=== PATIENT | female | born 1930 | race Caucasian/White ===

== ENCOUNTER 2019-08-22 14:26 | Inpatient (IN) | payer MEDICARE, OTHER ==
[2019-08-22] VITALS (10 sets, daily range): BP systolic 103–172; BP diastolic 51–96
[~2019-08-22] VITALS: Ht 154.9 cm; Wt 79.6 kg
--- NOTE | 2019-08-22 15:02 | ED Cardiac General ---
History of Present Illness General Chief Complaint: Cardiac/General Problems Stated Complaint: SOB Source: patient, family History of Present Illness Date Seen by Provider: Aug 22, 2019 Time Seen by Provider: 14:58 Initial Comments Patient complains of shortness of breath and discomfort in her chest since 7:00 this morning she is worse lying supine she is short of breath with exertion which is nonproductive cough and intermittent dull discomfort in the chest felt specific able to describe it there is no radiation no diaphoresis no nausea no vomiting denies past history of coronary disease Timing/Duration: 1 day Severity: moderate Location: other Activities at Onset: none, rest Prior CP/Workup: no prior chest pain, no prior cardiac workup Associated Systoms: Cough, Shortness of Air Allergies and Home Medications Allergies Coded Allergies: No Known Drug Allergies (Unverified , 08/22/19) Patient Home Medication List Home Medication List Reviewed: Yes Review of Systems Review of Systems Constitutional: no symptoms reported EENTM: No Symptoms Reported Respiratory: See HPI Cardiovascular: See HPI Gastrointestinal: See HPI Genitourinary: No Symptoms Reported Musculoskeletal: no symptoms reported Skin: no symptoms reported Psychiatric/Neurological: No Symptoms Reported Physical Exam Vital Signs Vital Signs - First Documented 08/22/19 14:40 Temp 37.1 Pulse 40 Resp 14 B/P (MAP) 131/86 (101) Pulse Ox 95 O2 Delivery Room Air Capillary Refill : Height, Weight, BMI Height: '" Weight: lbs. oz. kg; BMI Method: General Appearance: No Apparent Distress, WD/WN HEENT: PERRL/EOMI, Normal ENT Inspection Neck: Full Range of Motion, Normal Inspection, Non Tender Respiratory: Chest Non Tender, Crackles, Decreased Breath Sounds, Rales Cardiovascular: Regular Rate, Rhythm, Normal Peripheral Pulses, Bradycardia Gastrointestinal: Normal Bowel Sounds, No Organomegaly, No Pulsatile Mass, Non Tender Extremity: Normal Capillary Refill, Normal Inspection, Non Tender, No Pedal Edema Neurologic/Psychiatric: Alert, Oriented x3 Skin: Normal Color, Warm/Dry Progress/Results/Core Measures Results/Orders Lab Results Laboratory Tests Test 08/22/19 14:50 Range/Units White Blood Count 15.0 H 4.3-11.0 10^3/uL Red Blood Count 4.96 4.35-5.85 10^6/uL Hemoglobin 15.0 11.5-16.0 G/DL Hematocrit 45 35-52 % Mean Corpuscular Volume 90 80-99 FL Mean Corpuscular Hemoglobin 30 25-34 PG Mean Corpuscular Hemoglobin Concent 34 32-36 G/DL Red Cell Distribution Width 14.9 H 10.0-14.5 % Platelet Count 290 130-400 10^3/uL Mean Platelet Volume 11.0 H 7.4-10.4 FL Neutrophils (%) (Auto) 76 H 42-75 % Lymphocytes (%) (Auto) 15 12-44 % Monocytes (%) (Auto) 9 0-12 % Eosinophils (%) (Auto) 0 0-10 % Basophils (%) (Auto) 0 0-10 % Neutrophils # (Auto) 11.4 H 1.8-7.8 X 10^3 Lymphocytes # (Auto) 2.3 1.0-4.0 X 10^3 Monocytes # (Auto) 1.3 H 0.0-1.0 X 10^3 Eosinophils # (Auto) 0.0 0.0-0.3 10^3/uL Basophils # (Auto) 0.0 0.0-0.1 10^3/uL Neutrophils % (Manual) 76 % Lymphocytes % (Manual) 15 % Monocytes % (Manual) 7 % Eosinophils % (Manual) 1 % Basophils % (Manual) 0 % Band Neutrophils 1 % Sodium Level 136 135-145 MMOL/L Potassium Level 3.8 3.6-5.0 MMOL/L Chloride Level 100 98-107 MMOL/L Carbon Dioxide Level 18 L 21-32 MMOL/L Anion Gap 18 H 5-14 MMOL/L Blood Urea Nitrogen 17 7-18 MG/DL Creatinine 1.22 0.60-1.30 MG/DL Estimat Glomerular Filtration Rate 42 BUN/Creatinine Ratio 14 Glucose Level 155 H 70-105 MG/DL Calcium Level 9.4 8.5-10.1 MG/DL Corrected Calcium 9.5 8.5-10.1 MG/DL Magnesium Level 1.6 1.6-2.4 MG/DL Total Bilirubin 0.9 0.1-1.0 MG/DL Aspartate Amino Transf (AST/SGOT) 89 H 5-34 U/L Alanine Aminotransferase (ALT/SGPT) 21 0-55 U/L Alkaline Phosphatase 104 40-136 U/L Troponin I 8.72 *H <0.30 NG/ML Pro-B-Type Natriuretic Peptide 7906.0 H <75.0 PG/ML Total Protein 7.0 6.4-8.2 GM/DL Albumin 3.9 3.2-4.5 GM/DL My Orders Orders - KADEEM STRATTON DO Cbc And Manual Diff (08/22/19 14:55) Comprehensive Metabolic Panel (08/22/19 14:55) Probnp Fs (08/22/19 14:55) Troponin I Fs (08/22/19 14:55) Chest 1 View Ap/Pa Only (08/22/19 14:55) Magnesium (08/22/19 14:55) Ua Culture If Indicated (08/22/19 14:55) Ed Iv/Invasive Line Start (08/22/19 14:55) Enoxaparin Injection (Lovenox Injection) (08/22/19 16:00) Myoglobin Serum (08/22/19 16:00) Aspirin Chewable Tablet (Baby Aspirin Ch (08/22/19 16:15) Vital Signs/I&O 08/22/19 14:40 Temp 37.1 Pulse 40 Resp 14 B/P (MAP) 131/86 (101) Pulse Ox 95 O2 Delivery Room Air Progress Progress Note : Progress Note Patient presents with orthopnea shortness of breath and mild discomfort in her chest differentials [place] includes ACS congestive heart failure symptomatic bradycardia The patient has evidence of hyperlipidemia. In addition to familial causes, secondary causes such as diabetes mellitus, medications, hypothyroidism, renal failure, nephrotic syndrome, alcohol usage, and other endocrine disorders were considered. The patient will be maintained with dietary modification laboratory screening chest x-ray given her heart rates in the 30s with new onset atrial fib most likely she'll need to be evaluated for pacemaker placement be transferred to Hospital cardiology availability. As was discussed with the patient and family at the beginning I agreed David B the hospital shortness In order to reduce cardiovascular risk. The risks and benefits of medical therapy have been explained to the patient. Initial ECG Impression Date: Aug 22, 2019 Initial ECG Impression Time: 15:03 Initial ECG Rate: 40 Initial ECG Rhythm: A Fib/Flutter Initial ECG Intervals: QRS (120) Initial ECG Impression: Atrial Fibrillation Departure Impression Primary Impression: Bradycardia Additional Impressions: Atrial fibrillation NSTEMI (non-ST elevated myocardial infarction) CHF (congestive heart failure) Disposition: [facility]-TRM HOSP Condition: Improved Transfer Transfer Reason: Exceeds level of care Time Spoke to Accepting Phy: 16:09 Transfer Progress Notes Patient elevated troponin and elevated BNP chest x-ray and physical exam consistent with CHF EKG showed atrial fibrillation with bradycardia in the 30s blood pressure was hemodynamically stable. Discussion with the family requests to be transferred to [place] a spoke to Dr. LUX who agreed patient should have aspirin Lovenox and he would see he recommended hospitalist admission and discussed the case with Dr. Lockwood, who agreed to accept the patient. We discussed the merits of air versus ground as the patient is hemodynamically stable no ongoing chest pain and only abnormal vital signs for bradycardia will hold out for ground transfer Dr. Segundo had requested a myoglobin be sent as well to assist him in determining the age of this IL. Departure-Patient Inst. Referrals: TIA WILSON MD (PCP/Family) Primary Care Physician KADEEM STRATTON DO Aug 22, 2019 15:02
[2019-08-22 15:11] LABS: HEMATOCRIT 45 % (35-52); MEAN CORPUSCULAR HEMOGLOBIN 30 PG (25-34); MEAN CORPUSCULAR HGB CONC 34 G/DL (32-36); MEAN CORPUSCULAR VOLUME 90 FL (80-99)
[2019-08-22 15:12] LABS: LYMPHOCYTES % (AUTO) 15 % (12-44); NEUTROPHILS % (AUTO) 76 % (42-75); PLATELET COUNT 290 10^3/uL (130-400); RED CELL DISTRIBUTION WIDTH 14.9 % (10.0-14.5)
[2019-08-22 15:14] LABS: BASOPHILS % (AUTO) 0 % (0-10); EOSINOPHILS % (AUTO) 0 % (0-10); MONOCYTES % (AUTO) 9 % (0-12)
[2019-08-22 15:15] LABS: LYMPHOCYTES # (AUTO) 2.3 X 10^3 (1.0-4.0); MONOCYTES # (AUTO) 1.3 X 10^3 (0.0-1.0); NEUTROPHILS # (AUTO) 11.4 X 10^3 (1.8-7.8)
--- NOTE | 2019-08-22 15:19 | Diagnostic Imaging Report ---
PROCEDURE: Chest 1 view AP/PA only. INDICATION: Shortness of air and bradycardia. COMPARISON: None available. FINDINGS: Blunting of the left lateral costophrenic angle is present. Hazy opacities in the lung bases are likely due to summation shadow in patient's breast; however, underlying ground glass pulmonary opacities could give this appearance. Potential trace left pleural effusion versus atelectasis within the costophrenic angle. No pneumothorax. IMPRESSION: Potential trace left pleural effusion versus atelectasis within the costophrenic angle. Dictated by: Dictated on workstation # [id number]
[2019-08-22 15:28] LABS: BAND NEUTROPHILS 1 %; BASOPHILS % (MANUAL) 0 %; EOSINOPHILS % (MANUAL) 1 %; LYMPHOCYTES % (MANUAL) 15 %; MONOCYTES % (MANUAL) 7 %; NEUTROPHILS % (MANUAL) 76 %
[2019-08-22 15:34] LABS: BILIRUBIN,TOTAL 0.9 MG/DL (0.1-1.0); CALCIUM 9.4 MG/DL (8.5-10.1); CREATININE SERUM 1.22 MG/DL (0.60-1.30); MAGNESIUM 1.6 MG/DL (1.6-2.4); POTASSIUM 3.8 MMOL/L (3.6-5.0)
[2019-08-22 15:36] LABS: ALBUMIN 3.9 GM/DL (3.2-4.5)
[2019-08-22] MEDS ORDERED: ENOXAPARIN 80 MG/0.8 ML (LOVENOX) SYR SC ONE (16:00)
[2019-08-22] MEDS ORDERED: ASPIRIN 81 MG CHEW (CHILDREN'S ASA) PO ONE ×2 (16:00→16:15)
--- NOTE | 2019-08-22 16:14 | NUR ---
THIS NURSE NOTIFIED DR LUX AND DR HAQUE PT HR IS IN THE 30S SBP IS IN THE 120S. PT DOES NOT HAVE AND SYMPTOMS OF CP, NAUSEA, ARM OR JAW PAIN, OR SOA. DR HAQUE STATED TO REFER JOSE J.
--- NOTE | 2019-08-22 16:50 | NUR ---
Transcutaneous pacer pads placed on patient for appropriate plan for possible tx.
--- NOTE | 2019-08-22 18:37 | NUR ---
THIS NURSE CALLED DR LUX. THIS NURSE NOTIFIED DR LUX PT HR IS IN THE 30S AND SBP IS IN THE 120. STILL NO SYMPTOMS. DR LUX STATED HE IS ON HIS WAY TO THE HOSPITAL.
[2019-08-22] MEDS ORDERED: NS IV 1000 ML 1,000 ML ONE (19:04)
--- NOTE | 2019-08-22 19:14 | Consultation-Cardiology ---
HPI-Cardiology Cardiology Consultation Date of Consultation 08/22/19 Date of Admission Time Seen by Provider: 19:09 Indication: Bradycardia HPI 89-year-old lady with history of hypertension, has been on Norvasc as an outpatient, reporting that she has been feeling tired for few years, reported that over 2 days ago had an episode of chest tightness and shortness of breath and felt dizzy and lightheaded with nausea, resolved later that day and did not have significant symptoms other than some dyspnea on exertion yesterday. This morning she started to have more shortness of breath and fatigue and loss of energy in addition to nausea. Brought to the emergency room in [place] and noted to be bradycardic. She had elevated troponin with normal myoglobin. Denied any active chest pain. No palpitation. No syncope but reported episodes of dizziness and lightheadedness. I discussed with her the management plan, patient requested to be full code and wanted every procedure done at that point understanding that there is a higher risk of complications Home Medications & Allergies Allergies: Coded Allergies: No Known Drug Allergies (Unverified , 08/22/19) Home Medication List Reviewed: Yes THB-Ffbxfv-Jjvoov Hx Patient Social History Marital Status: Employed/Student: retired Alcohol Use: Denies Use Recreational Drug Use: No Smoking Status: Never a Smoker Recent Foreign Travel: No Recent Infectious Disease Expo: No Recent Hopitalizations: No Past Medical History Discussed below Family Medical History Family Medical Hx Noncontributory to her current condition Review of Systems-General Review of Systems Constitutional: see HPI, dizziness, malaise, weakness EENTM: see HPI Respiratory: see HPI; No cough; dyspnea on exertion; No hemoptysis, No orthopnea, No phlegm, No short of breath, No stridor, No wheezing, No other Cardiovascular: see HPI, chest pain; No edema, No Hx of Intervention, No palpitations, No syncope, No vascular heart diseas, No other Gastrointestinal: see HPI, abdominal pain, nausea Genitourinary: see HPI Musculoskeletal: no symptoms reported, see HPI Skin: no symptoms reported, see HPI Psychiatric/Neurological: No Symptoms Reported, See HPI Reviewed Test Results Reviewed Test Results Lab Laboratory Tests Test 08/22/19 14:50 Range/Units White Blood Count 15.0 H 4.3-11.0 10^3/uL Red Blood Count 4.96 4.35-5.85 10^6/uL Hemoglobin 15.0 11.5-16.0 G/DL Hematocrit 45 35-52 % Mean Corpuscular Volume 90 80-99 FL Mean Corpuscular Hemoglobin 30 25-34 PG Mean Corpuscular Hemoglobin Concent 34 32-36 G/DL Red Cell Distribution Width 14.9 H 10.0-14.5 % Platelet Count 290 130-400 10^3/uL Mean Platelet Volume 11.0 H 7.4-10.4 FL Neutrophils (%) (Auto) 76 H 42-75 % Lymphocytes (%) (Auto) 15 12-44 % Monocytes (%) (Auto) 9 0-12 % Eosinophils (%) (Auto) 0 0-10 % Basophils (%) (Auto) 0 0-10 % Neutrophils # (Auto) 11.4 H 1.8-7.8 X 10^3 Lymphocytes # (Auto) 2.3 1.0-4.0 X 10^3 Monocytes # (Auto) 1.3 H 0.0-1.0 X 10^3 Eosinophils # (Auto) 0.0 0.0-0.3 10^3/uL Basophils # (Auto) 0.0 0.0-0.1 10^3/uL Neutrophils % (Manual) 76 % Lymphocytes % (Manual) 15 % Monocytes % (Manual) 7 % Eosinophils % (Manual) 1 % Basophils % (Manual) 0 % Band Neutrophils 1 % Sodium Level 136 135-145 MMOL/L Potassium Level 3.8 3.6-5.0 MMOL/L Chloride Level 100 98-107 MMOL/L Carbon Dioxide Level 18 L 21-32 MMOL/L Anion Gap 18 H 5-14 MMOL/L Blood Urea Nitrogen 17 7-18 MG/DL Creatinine 1.22 0.60-1.30 MG/DL Estimat Glomerular Filtration Rate 42 BUN/Creatinine Ratio 14 Glucose Level 155 H 70-105 MG/DL Calcium Level 9.4 8.5-10.1 MG/DL Corrected Calcium 9.5 8.5-10.1 MG/DL Magnesium Level 1.6 1.6-2.4 MG/DL Total Bilirubin 0.9 0.1-1.0 MG/DL Aspartate Amino Transf (AST/SGOT) 89 H 5-34 U/L Alanine Aminotransferase (ALT/SGPT) 21 0-55 U/L Alkaline Phosphatase 104 40-136 U/L Myoglobin 82.4 10.0-92.0 NG/ML Troponin I 8.72 *H <0.30 NG/ML Pro-B-Type Natriuretic Peptide 7906.0 H <75.0 PG/ML Total Protein 7.0 6.4-8.2 GM/DL Albumin 3.9 3.2-4.5 GM/DL Physical Exam Physical Exam Vital Signs Vital Signs - First Documented 08/22/19 14:40 Temp 37.1 Pulse 40 Resp 14 B/P (MAP) 131/86 (101) Pulse Ox 95 O2 Delivery Room Air Capillary Refill : Less Than 3 Seconds Height, Weight, BMI Height: '" Weight: lbs. oz. kg; 31.00 BMI Method: General Appearance: No Apparent Distress, WD/WN HEENT: PERRL/EOMI, Normal ENT Inspection Neck: Full Range of Motion, Normal Inspection, Non Tender Respiratory: Chest Non Tender, Lungs Clear, Crackles, Decreased Breath Sounds, Rales Cardiovascular: No Murmur, Normal Peripheral Pulses, Bradycardia Gastrointestinal: Normal Bowel Sounds, No Organomegaly, No Pulsatile Mass, Non Tender Rectal: Deferred Extremity: Normal Capillary Refill, Normal Inspection, Non Tender, No Pedal Edema Neurologic/Psychiatric: Alert, Oriented x3 Skin: Normal Color, Warm/Dry A/P-Cardiology Admission Diagnosis Subacute myocardial infarction Coronary artery disease Sinus node dysfunction Hypertension Assessment/Plan Subacute myocardial infarction, currently not having chest pain, probably the acute injury occurred 48 hours ago, troponin is still elevated, myoglobin is back to normal. Denied any active pain at this time, having mild fatigue and shortness of breath on exertion. Sinus node dysfunction, severe bradycardia with what appeared to be escape junctional rhythm, starting IV fluid and monitoring blood pressure, may require permanent pacemaker if her heart rate did not improve in the next 24-48 hours Mild metabolic acidosis, starting IV fluid and monitoring blood pressure Mild leukocytosis, mild pleural effusion. Continue to monitor CBC History of hypertension, has been on Norvasc, hold it for now Orthostatic hypotension and dizziness probably due to bradycardia. Multiple skin lesion on the back with multiple moles Clinical Quality Measures DVT/VTE Risk/Contraindication: Risk Factor Score Per Nursin RFS Level Per Nursing on Admit: 2=Moderate KRYSTAL LUX MD Aug 22, 2019 19:14
--- NOTE | 2019-08-22 19:16 | Cardiac Procedure Note-CS/ASA ---
Pre-Procedure Note Pre-Op Procedure Note H&P Reviewed The H&P was reviewed, patient examined and no changes noted. Date H&P Reviewed: Aug 22, 2019 Time H&P Reviewed: 19:16 Conscious Sedation Pre-Proced Time 19:16 ASA Score 3 For ASA 3 and 4: Consider anesthesia and medical clearance. Also, for patients with a history of failed moderate sedation consider anesthesia. Airway Lungs Heart ASA score ASA 1: a normal healthy patient ASA 2: a patient with a mild systemic disease (mid diabetes, controlled hypertension, obesity x ASA 3: a patient with a severe systemic disease that limits activity (angina, COPD, prior Myocardial infarction) ASA 4: a patient with an incapacitating disease that is a constant threat to life (CHF, renal failure) ASA 5: a moribund patient not expected to survive 24 hrs. (ruptured aneurysm) ASA 6: a declared brain- patient whose organs are being harvested. For emergent operations, add the letter E after the classification Mallampati Classification Grade 3 Sedation Plan Analgesia, Amnesia, Plan communicated to team members, Discussed options with patient/fam, Discussed risks with patient/fam The patient is an appropriate candidate to undergo the planned procedure, sedation, and anesthesia. The patient immediately re-assessed prior to indication. KRYSTAL LUX MD Aug 22, 2019 19:16
[2019-08-22 19:26] LABS: CLARITY,URINE SL CLOUDY; COLOR,URINE AMBER; GLUCOSE, URINE (UA) NEGATIVE (NEGATIVE); KETONES,URINE TRACE (NEGATIVE); LEUKOCYTE ESTERASE ,URINE NEGATIVE (NEGATIVE); NITRITE,URINE NEGATIVE (NEGATIVE); PH,URINE 5.5 (5-9); PROTEIN,URINE 3+ (NEGATIVE)
[2019-08-22] MEDS: NS IV 1000 ML 1,000 ML IV SCH ×2 (19:30→22:14)
[2019-08-22] MEDS ORDERED: fentaNYL INJECTION 100 MCG/2 ML AMP ONE (19:42)
[2019-08-22] MEDS ORDERED: LIDOCAINE 1% INJ 20 ML 20 ML VIAL ONE ×2 (19:42→20:53)
[2019-08-22] MEDS ORDERED: MIDAZOLAM 5 MG/5 ML (VERSED) VIAL ONE (19:42)
[2019-08-22] MEDS ORDERED: HEParin (CATH LAB) 2,000 ML IV ONE (19:42)
[2019-08-22 19:56] LABS: BACTERIA,URINE LARGE /HPF
[2019-08-22 19:56] LABS: INR 1.2 (0.8-1.4); PROTHROMBIN TIME PATIENT 15.5 SEC (12.2-14.7)
[2019-08-22 19:57] LABS: HYALINE CASTS, URINE >50 /LPF; SQUAMOUS EPITHELIAL CELL,UR RARE /HPF
[2019-08-22] MEDS ORDERED: ATROPINE INJECTION 1 MG/10 ML SYR (ABBOTT) ONE (20:34)
[2019-08-22] MEDS ORDERED: NEO/POLY/BAC (NEOSPORIN) OINT 15 GM TUBE ONE (21:06)
--- NOTE | 2019-08-22 21:23 | Cardiac Cath Report ---
Cardiac Cath Report Physician (s)/Diver Assistant (s) Physician KRYSTAL LUX MD Pre-Procedure Diagnosis Pre-Procedure Diagnosis: Coronary artery disease Post-Procedure Note Procedure Start Date: Aug 22, 2019 Name of Procedure: Left heart catheterization Findings/Procedure Note PROCEDURE NOTE: 89-year-old lady admitted with shortness of breath, fatigue and chest pain and severe bradycardia, had elevation in troponin, decided to proceed with cardiac catheterization possible PTCA. After explaining the procedure to the patient, all pros and cons were explained, all questions were answered. The patient signed the consent and then she was placed on the cardiac catheterization laboratory. Groin was prepped SL fashion local anesthesia was used. Sheath placed in the left femoral artery. Stacy right and left catheter were used to access the coronary system. Pigtail was used to access the left ventricular cavity, Stacy right was advanced to the left ventricular cavity, pressure was measured no left ventriculogram was done At the end of the procedure the sheath was removed. Manual pressure applied FINDINGS: Hemodynamics LV 127/11 Aorta 140/55 mean of 80 ANATOMY: Left Main is free of obstructive disease Left Anterior Descending is tortuous with mild disease nonobstructive disease Left Circumflex has mild disease nonobstructive disease Right Coronory Artery has mild disease nonobstructive disease LV Gram was not done pressure was measured CONCLUSION: 1. Mild coronary artery disease nonobstructive disease 2. Severe bradycardia with normal left ventricular end-diastolic pressure DISCUSSION AND RECOMMENDATION: Medical therapy is recommended, planning for temporary pacemaker for now Anesthesia Type: Conscious Sedation Estimated blood loss (mL): 25 ml Contrast Amount: 24 ml Total Radiation Dose: 205 mGy Post-Procedure Diagnosis Post-operative diagnosis: Coronary artery disease Type II myocardial infarction Severe bradycardia Hypertension KRYSTAL LUX MD Aug 22, 2019 21:23
[2019-08-22] MEDS ORDERED: ceFAZolin INJECTION 1,000 MG in WATER (STERILE) FOR INJECTION 10 ML IV SCH (21:30)
[2019-08-22] MEDS ORDERED: PATIENT MAY USE OWN MEDS, ALL PO SCH (21:30)
--- NOTE | 2019-08-22 21:30 | Cardiac Procedure Note ---
Cardiology Procedures Date of Procedure 08/22/19 Temporary pacemaker implant 89-year-old lady with severe bradycardia, had few pauses for more than 3 seconds, heart rate is in the 30s. Decided to proceed with temporary pacemaker implant. Under local anesthesia, 7 Pakistani sheath was placed in the right subclavian vein, no complication noted, balloontipped pacemaker was advanced and positioned at the right ventricular apex. Good capture activity was noted. Site at output of 2 mV, high sensitivity. Heart rate 50. Tolerating well Conclusion Successful implant of temporary pacemaker KRYSTAL LUX MD Aug 22, 2019 21:30
[2019-08-22] MEDS ORDERED: ceFAZolin INJECTION 1,000 MG ONE (22:06)
[2019-08-22] MEDS ORDERED: WATER (STERILE) FOR INJECTION 10 ML ONE (22:07)
[2019-08-23] VITALS (25 sets, daily range): BP systolic 87–206; BP diastolic 48–96
--- NOTE | 2019-08-23 00:20 | NUR ---
This RN notified Dr. Trinh of patient's HTN with SBP in 170's-180's and DBP in 100's, patient complaining of pain 12/15. New orders received for Lisinopril 10mg X1 now and Percocet 5/325 mg X1 now. Addendum: 08/23/19 at 0024 by DARIEL DUFFY RN New order received to refer to [facility] for remainder of night.
[2019-08-23] MEDS ORDERED: lisINopril 10 MG (PRINIVIL) TABLET PO ONE (00:30)
[2019-08-23] MEDS ORDERED: oxyCODONE/APAP 5/325MG (PERCOCET 5) TABLET PO ONE (00:30)
--- NOTE | 2019-08-23 01:23 | NUR ---
This RN notified E[facility] of patient's continued HTN of 201/ and patient's complaints of pain on right chest where temporary pacemaker was placed, despite pharmacological measures previously taken. Patient not rating pain but stating "It hurts real bad" when asked to rate it. Addendum: 08/23/19 at 0155 by DARIEL DUFFY RN This RN also notified E[facility] of low urine output of 120ml (20ml/hr)
[2019-08-23] MEDS ORDERED: fentaNYL INJECTION 100 MCG/2 ML AMP ONE (01:40)
[2019-08-23] MEDS ORDERED: hydrALAZINE (APESOLINE) 20 MG/ML VIAL ONE (01:41)
[2019-08-23] MEDS ORDERED: hydrALAZINE (APESOLINE) 20 MG/ML VIAL IV ONE (02:00)
[2019-08-23] MEDS ORDERED: fentaNYL INJECTION 100 MCG/2 ML AMP IVP ONE (02:00)
[2019-08-23] MEDS ORDERED: fentaNYL INJECTION 100 MCG/2 ML AMP IVP PRN (02:00)
--- NOTE | 2019-08-23 02:26 | NUR ---
THIS RN NOTIFIED EICU THAT PT C/O NAUSEA. NEW ORDER RECEIVED, SEE ORDER HX.
[2019-08-23] MEDS ORDERED: ONDANSETRON 4 MG/2 ML (SDV) Z0FRAN IVP ONE (02:30)
[2019-08-23] MEDS ORDERED: NS IV 500 ML 500 ML IV SCH (02:45)
[2019-08-23 03:25] LABS: BASOPHILS % (AUTO) 0 % (0-10); EOSINOPHILS % (AUTO) 0 % (0-10); HEMATOCRIT 43 % (35-52); LYMPHOCYTES # (AUTO) 2.9 X 10^3 (1.0-4.0); LYMPHOCYTES % (AUTO) 17 % (12-44); MEAN CORPUSCULAR HEMOGLOBIN 30 PG (25-34); MEAN CORPUSCULAR HGB CONC 33 G/DL (32-36); MEAN CORPUSCULAR VOLUME 91 FL (80-99); MEAN PLATELET VOLUME 11.7 FL (7.4-10.4); MONOCYTES % (AUTO) 12 % (0-12); NEUTROPHILS # (AUTO) 11.8 X 10^3 (1.8-7.8); NEUTROPHILS % (AUTO) 71 % (42-75); PLATELET COUNT 235 10^3/uL (130-400); RED CELL DISTRIBUTION WIDTH 14.9 % (10.0-14.5); WHITE BLOOD COUNT 16.7 10^3/uL (4.3-11.0)
[2019-08-23 03:45] LABS: ALBUMIN 3.6 GM/DL (3.2-4.5); BILIRUBIN,TOTAL 0.9 MG/DL (0.1-1.0); CREATININE SERUM 1.12 MG/DL (0.60-1.30); MAGNESIUM 1.6 MG/DL (1.6-2.4); PHOSPHORUS 3.3 MG/DL (2.3-4.7); TOTAL PROTEIN 6.5 GM/DL (6.4-8.2)
[2019-08-23] MEDS ORDERED: MAGNESIUM 1 GM/100 ML IVPB 100 ML IV SCH (04:00)
[2019-08-23] MEDS: cefTRIAXone 1,000 MG/SWFI 10 ML IV PUSH IV SCH ×2 (04:04)
[2019-08-23] MEDS: NS IV 1000 ML 1,000 ML IV SCH ×5 (04:28→22:35)
--- NOTE | 2019-08-23 05:34 | Pulmonary Consultation ---
History of Present Illness History of Present Illness Date Seen by Provider: Aug 23, 2019 Time Seen by Provider: 05:29 Date of Admission Reason for Visit: Bradycardia Allergies and Home Medications Allergies Coded Allergies: No Known Drug Allergies (Unverified , 08/22/19) Past Wknexge-Gjwprv-Ol[place]ak Hx Patient Social History Alcohol Use: Denies Use Recreational Drug Use: No Smoking Status: Never a Smoker Recent Foreign Travel: No Contact w/Someone Who Travel: No Recent Infectious Disease Expo: No Recent Hopitalizations: No Seasonal Allergies Seasonal Allergies: No Past Medical History Surgeries: Yes Tonsillectomy Respiratory: No Cardiac: Yes Hypertension Neurological: No Genitourinary: Yes (CKD last known Stage III) Gastrointestinal: No Musculoskeletal: Yes (chronic knee pain) Endocrine: No HEENT: No Cancer: No Psychosocial: No Integumentary: No Blood Disorders: No Sepsis Event Evaluation Height, Weight, BMI Height: '" Weight: lbs. oz. kg; 31.00 BMI Method: Exam Exam Vital Signs Date Time Temp Pulse Resp B/P (MAP) Pulse Ox O2 Delivery O2 Flow Rate FiO2 08/23/19 04:00 Nasal Cannula 3.00 08/23/19 04:00 36.8 08/23/19 04:00 50 19 128/61 (83) 93 Nasal Cannula 3.00 08/23/19 03:00 49 17 120/76 (91) 90 Nasal Cannula 3.00 08/23/19 02:00 117 20 153/67 (95) 91 Nasal Cannula 3.00 08/23/19 01:00 49 25 206/92 (130) 93 Nasal Cannula 3.00 08/23/19 01:00 50 08/23/19 00:00 Nasal Cannula 3.00 08/23/19 00:00 36.8 08/23/19 00:00 57 20 186/96 (126) 90 Nasal Cannula 3.00 08/22/19 23:00 81 50 172/85 (114) 95 Nasal Cannula 3.00 08/22/19 22:30 92 22 152/96 (114) 94 Nasal Cannula 3.00 08/22/19 22:15 50 20 166/90 (115) 96 Nasal Cannula 3.00 08/22/19 22:00 50 19 162/81 (108) 95 Nasal Cannula 3.00 08/22/19 21:45 50 19 160/92 (114) 90 Nasal Cannula 3.00 08/22/19 20:00 36.4 08/22/19 19:45 108 19 141/80 (100) 98 Nasal Cannula 3.00 08/22/19 19:30 Nasal Cannula 2.00 08/22/19 19:30 32 19 103/51 (68) 99 Nasal Cannula 3.00 08/22/19 19:15 32 12 153/51 (85) 99 Nasal Cannula 3.00 08/22/19 19:00 34 08/22/19 19:00 32 12 153/55 (87) 98 Nasal Cannula 3.00 08/22/19 18:00 35.9 08/22/19 18:00 98 Room Air 08/22/19 18:00 33 10 126/62 (83) 95 Room Air 08/22/19 17:47 35 08/22/19 14:40 37.1 40 14 131/86 (101) 95 Room Air I & O 08/23/19 07:00 Intake Total 240 ml Output Total 125 ml Balance 115 ml Height & Weight Height: '" Weight: lbs. oz. kg; 31.00 BMI Method: General Appearance: No Apparent Distress, WD/WN HEENT: PERRL/EOMI, Normal ENT Inspection Neck: Full Range of Motion, Normal Inspection, Non Tender Respiratory: Chest Non Tender, Lungs Clear, Crackles, Decreased Breath Sounds, Rales Cardiovascular: No Murmur, Normal Peripheral Pulses, Bradycardia Capillary Refill: Less Than 3 Seconds Extremity: Normal Capillary Refill, Normal Inspection, Non Tender, No Pedal Edema Neurologic/Psychiatric: Alert, Oriented x3 Skin: Normal Color, Warm/Dry Results Lab Laboratory Tests 08/22/19 14:50 08/23/19 02:55 Assessment/Plan Assessment/Plan SOB Bradycardia with NSTEMI -Cardiology is following -S/p cath with temp pacemaker -prob perm pacemaker today Pain at pacemaker site -Will add morphine and Vicodin PRN Metabolic lactic acidosis -- secondary to decreased perfusion from bradycardia -Check LA -cautious IVF and monitor close - Weakness frequent falls -may need ECF -PT/OT HTN Emergency -Monitor close UTI -Muna - PAUL SCHNEIDER DO Aug 23, 2019 05:34
[2019-08-23] MEDS ORDERED: morphine INJ 4 MG/ML 1 ML (VIAL/SYRINGE) IVP PRN (05:45)
[2019-08-23] MEDS ORDERED: HYDROcodone/APAP 7.5 MG/325 MG (LORTAB, LORCET PLUS) TABLET PO PRN (05:45)
[2019-08-23] MEDS: POTASSIUM CL 10MEQ/50ML IVPB 50 ML IV SCH (05:52)
[2019-08-23] MEDS: KCL 20 MEQ TAB (K-DUR) PO SCH (05:52)
[2019-08-23] MEDS: MAGNESIUM 1 GM/100 ML IVPB 100 ML IV SCH ×3 (05:52→08:07)
[2019-08-23] MEDS ORDERED: LACTATED RINGERS 1,000 ML IV ONE (06:01)
[2019-08-23] MEDS: LACTATED RINGERS 1,000 ML IV SCH ×3 (06:26→22:35)
[2019-08-23] MEDS ORDERED: RT-ALBUTEROL/IPRATROPIUM 3 ML (DUONEB) VIAL ONE (06:30)
[2019-08-23] MEDS: RT-ALBUTEROL/IPRATROPIUM 3 ML (DUONEB) VIAL INH SCH ×5 (06:44→21:51)
[2019-08-23 06:55] LABS: ABG BASE EXCESS -3.6 MMOL/L (-2.5-2.5); ABG OXYGEN SATURATION 93 % (94-100); ABG PCO2 39 MMHG (35-45); ABG PH 7.35 (7.37-7.43); ABG PO2 67 MMHG (79-93); ABG TCO2 22.3 MMOL/L (21.0-31.0); ALLENS TEST POSITIVE; INSPIRED O2 NC@3L; PATIENT TEMP 36.8; VENTILATOR NO
[2019-08-23 07:20] LABS: BILIRUBIN,URINE 2+ (NEGATIVE)
[2019-08-23] MEDS ORDERED: CATHETER FLUSH 10 ML SYR IV PRN (07:30)
[2019-08-23] MEDS: ASPIRIN E.C. 81 MG (ECOTRIN) TAB PO SCH (08:07)
--- NOTE | 2019-08-23 08:10 | NUR ---
THIS NURSE NOTED PT HEART RATED 120-130 AFIB. PT IS ASYMPTOMATIC. NO CHEST PAIN, NAUSEA, JAW PAIN, OR SOA. DR LUX AT BEDSIDE. DR LUX TO CHANGE TEMPORARY PACEMAKER SETTINGS TO BE PACED AT 60 BEATS A MIN. ORDERS GIVEN TO GET ANOTHER UA. ORDER WRITTEN DOWN AND REPEATED BACK.
--- NOTE | 2019-08-23 08:30 | NUR ---
THIS NURSE NOTIFIED DR HAQUE PT URINE OUT PT HAS BEEN LOW. OVERNIGHT PT HAD ONLY 200 ML OUT ALL NIGHT ACCORDING TO NIGHT NURSE. NOW NEWS AT THIS TIME. WILL CONTINUE TO MONITOR. Addendum: 08/23/19 at 2020 by ROMAN FOSS RN THIS NURSE NOTIFIED DR HAQUE PT URINE OUT PT HAS BEEN LOW OVERNIGHT PT HAD ONLY 200 ML OUT ALL NIGHT ACCORDING TO NIGHT NURSE. NO NEW ORDERS AT THIS TIME. WILL CONTINUE TO MONITOR.
--- NOTE | 2019-08-23 08:39 | Diagnostic Imaging Report ---
EXAM: CHEST 1 VIEW, AP/PA ONLY INDICATION: Post pacemaker placement. COMPARISON: 08/22/2019 at 3:02 PM. FINDINGS: Increasing interstitial and airspace opacities in both lungs, right greater than left, with a perihilar predominance. Right subclavian pacer lead. No pleural effusion or pneumothorax. No acute osseous findings. IMPRESSION: 1. Increasing interstitial and airspace opacities in both lungs suspicious for pulmonary edema. 2. Right subclavian pacer lead. No pneumothorax. Dictated by: Dictated on workstation # [id number]
[2019-08-23 09:07] LABS: BILIRUBIN,URINE NEGATIVE (NEGATIVE); CLARITY,URINE SL CLOUDY; COLOR,URINE YELLOW; GLUCOSE, URINE (UA) NEGATIVE (NEGATIVE); KETONES,URINE NEGATIVE (NEGATIVE); LEUKOCYTE ESTERASE ,URINE 1+ (NEGATIVE); NITRITE,URINE NEGATIVE (NEGATIVE); PROTEIN,URINE 1+ (NEGATIVE)
--- NOTE | 2019-08-23 09:10 | History & Physical-Hospitalist ---
History of Present Illness HPI/Chief Complaint This is an 89-year-old white female who was accepted in transfer from [place] last evening. The patient relates a history of having had an upper respiratory tract infection about 2-3 days ago accompanied with dizziness and shortness of breath. Upon presentation to the emergency room she was found to be in new onse t atrial fibrillation with bradycardia. Troponin was positive. The patient was taken to heart catheter last night by Dr. Segundo where the coronary arteries were found to be normal but she had a depressed ejection fraction was felt to be secondary to low output. In addition her troponin has bumped to 13 also felt to be secondary to low output and hypoperfusion. The patient this morning has no c omplaints other than discomfort related to the external pacemaker. She remains in atrial fibrillation. Source: patient Exam Limitations: no limitations Date Seen 08/23/19 Time Seen by a Provider: 08:30 Attending Physician Edith Torres MD PCP Tia Hunter MD Referring Physician Date of Admission Aug 22, 2019 at 16:33 Home Medications & Allergies Home Medications Reviewed patient Home Medication Reconciliation performed by pharmacy medication reconciliations accounts payable technician and/or nursing. Patients Allergies have been reviewed. Allergies Allergies Coded Allergies No Known Drug Allergies (Unverified08/22/19) Past Ubxgmcn-Zcxzcw-Sinjpk Hx Past Med/Social Hx: Reviewed Nursing Past Med/Soc Hx Patient Social History Marrital Status: , Employed/Student: retired Alcohol Use: Denies Use Recreational Drug Use: No Smoking Status: Never a Smoker Recent Foreign Travel: No Contact w/other who traveled: No Recent Hopitalizations: No Recent Infectious Disease Expo: No Seasonal Allergies Seasonal Allergies: No Past Medical History Surgeries: Tonsillectomy Cardiac: Hypertension History of Blood Disorders: No Review of Systems Constitutional: see HPI, weakness EENTM: vision loss (Right eye) Respiratory: dyspnea on exertion Cardiovascular: no symptoms reported, other (Dizziness) Gastrointestinal: no symptoms reported Genitourinary: no symptoms reported Musculoskeletal: joint pain, joint swelling (Hands) Skin: no symptoms reported Physical Exam Physical Exam Vital Signs Vital Signs - First Documented 08/22/19 14:40 Temp 37.1 Pulse 40 Resp 14 B/P (MAP) 131/86 (101) Pulse Ox 95 O2 Delivery Room Air Capillary Refill : Less Than 3 Seconds Height, Weight, BMI Height: '" Weight: lbs. oz. kg; 31.00 BMI Method: General Appearance: No Apparent Distress, WD/WN HEENT: Other (Vision loss right eye) Neck: Normal Inspection, Non Tender, Limited Range of Motion Respiratory: Normal Breath Sounds, No Accessory Muscle Use, No Respiratory Distress, Decreased Breath Sounds Cardiovascular: Irregularly Irregular Gastrointestinal: Normal Bowel Sounds, No Organomegaly, Non Tender, Soft Rectal: Deferred Extremity: Non Tender, No Calf Tenderness, No Pedal Edema, Other (Arthritis changes of her hands) Neurologic/Psychiatric: Alert, Oriented x3, No Motor/Sensory Deficits, Normal Mood/Affect Skin: Normal Color, Warm/Dry Results Results/Procedures Labs Laboratory Tests 08/22/19 14:50 08/23/19 02:55 08/24/19 03:17 Patient resulted labs reviewed. Imaging: Reviewed Imaging Films, Reviewed Imaging Report Assessment/Plan Admission Diagnosis Non-ST segment elevation CT related to poor cardiac output from bradycardia Depressed ejection fraction felt to be secondary to poor cardiac output from bradycardia History of hypertension New onset atrial fibrillation Bradycardia currently externally paced Possible right lower lobe pneumonia on Rocephin Urinary tract infection cultures pending Patient has already undergone a heart catheter and now will most likely require a permanent pacemaker. Further treatment and evaluation by Dr. Segundo Admission Status: Inpatient Order (span 2 midnights) Reason for Inpatient Admission: Elderly female with complicated presentation febrile require further intervention Clinical Quality Measures DVT/VTE Risk/Contraindication: Risk Factor Score Per Nursin RFS Level Per Nursing on Admit: 2=Moderate Copy Copies To 1: TIA HUNTER MD, KATHLEEN M MD Aug 23, 2019 09:10
[2019-08-23 09:16] LABS: BACTERIA,URINE MODERATE /HPF; WBC,URINE 25-50 /HPF
--- NOTE | 2019-08-23 09:32 | Cardiology Progress Note ---
Subjective Date Seen by Provider: Aug 23, 2019 Time Seen by Provider: 09:30 Subjective/Events-last exam Patient is laying down in bed, feeling better, no new complaint Review of Systems General: No Chills, No Night Sweats, No Fatigue, No Malaise, No Appetite, No Other HEENT: No Head Aches, No Visual Changes, No Eye Pain, No Ear Pain, No Dysphasia, No Sinus Congestion, No Post Nasal Drip, No Sore Throat, No Other Pulmonary: Dyspnea; No Cough, No Pleuritic Chest Pain, No Other Cardiovascular: No: Chest Pain, Palpitations, Orthopnea, Paroxysmal Noc. Dyspnea, Edema, Lt Headedness, Other Focused Exam Lactate Level 08/23/19 05:57: Lactic Acid Level 1.61 Lactic Acid Level Laboratory Tests Test 08/23/19 05:57 Lactic Acid Level 1.61 MMOL/L (0.50-2.00) Objective-Cardiology Exam Last Set of Vital Signs Vital Signs 08/23/19 08/23/19 08/23/19 06:00 06:45 07:00 Temp 36.0 Pulse 105 Resp 18 B/P (MAP) 119/58 (78) Pulse Ox 91 O2 Delivery Nasal Cannula O2 Flow Rate 3.00 Capillary Refill : Less Than 3 Seconds I&O Intake and Output 08/23/19 00:00 Intake Total 1040 ml Output Total 75 ml Balance 965 ml Intake Oral 240 ml IV Total 800 ml Output Urine Total 75 ml Daily Weight Change No General: Alert, Oriented X3, Cooperative HEENT: Atraumatic, PERRLA Neck: Supple, No JVD, No Thyromegaly Lungs: Clear to Auscultation, Normal Air Movement Heart: Regular Rate, Normal S1, Normal S2, Other (Systolic murmur at the left sternal border) Abdomen: Normal Bowel Sounds, Soft, No Tenderness, No Hepatosplenomegaly, No Masses Extremities: No Clubbing, No Cyanosis, No Edema, Normal Pulses, No Tenderness/Swelling Skin: No Rashes, No Breakdown, No Significant Lesion Neuro: Normal Gait, Normal Speech, Strength at 5/5 X4 Ext, Normal Tone, Sensation Intact Psych/Mental Status: Mental Status NL, Mood NL Results Lab Laboratory Tests 08/22/19 14:50 08/23/19 02:55 A/P-Cardiology Admission Diagnosis Subacute myocardial infarction Coronary artery disease Sinus node dysfunction Hypertension Assessment/Plan Subacute myocardial infarction, type II [place] secondary to severe bradycardia. Next Coronary artery disease, cardiac catheterization showed mild coronary artery disease nonobstructive disease, medical therapy is recommended. Next Echocardiogram showed normal LV size and function with ejection fraction 45 percent. 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 Urinary tract infection, leukocytosis persistent, continue on antibiotics and monitor Questionable pulmonary infiltrate on chest x-ray. Continue to monitor. Hypertension, has been on Norvasc, blood pressure was elevated after the pacemaker implant, started her on KRISTOPHER inhibitor and will continue monitoring. Orthostatic hypotension and dizziness probably due to bradycardia. Multiple skin lesion on the back with multiple moles Clinical Quality Measures DVT/VTE Risk/Contraindication: Risk Factor Score Per Nursin RFS Level Per Nursing on Admit: 2=Moderate KRYSTAL LUX MD Aug 23, 2019 09:32
--- NOTE | 2019-08-23 10:43 | NUR ---
THIS NURSE NOTIFIED DR HAQUE PT OUTPUT HAS ONLY BEEN 90ML THE LAST 4 HOURS. LR RUNNING AT 125 ML/HR. DR LUX GAVE PT A DIET AND WILL DO PACEMAKER PLACEMENT TOMORROW. NO NEW ORDERS AT THIS TIME WILL CONTINUE TO MONITOR.
--- NOTE | 2019-08-23 12:33 | NUR ---
THIS NURSE NOTIFIED DR LUX PT HEART RATE IS 120-130 AFIB. AND SBP HAS BEEN 120-140. DR LUX ORDERED A CARDIZEM DRIP. SEE ORDER HX. WILL CONTINUE TO MONITOR.
[2019-08-23] MEDS: dilTIAZem DRIP PRE-MIX 125 ML IV SCH (13:33)
--- NOTE | 2019-08-23 13:46 | NUR ---
THIS NURSE NOTED PT HEART RATE CONSISTENTLY IN 30S. NURSE DID NOT HANG CARDIZEM. THIS NURSE CALLED DR LUX AND NOTIFIED DR LUX PT TEMPORARY PACEMAKER IS NOT WORKING. PT IS ASYMPTOMATIC. PT PACEMAKER SITE LOOKS GOOD. CONNECTIONS ARE CORRECT. KAITLIN FROM [employer] [facility] AT BEDSIDE. DR LUX TOLD KAITLIN HE IS COMING TO SEE PT. NURSE AT BEDSIDE.
--- NOTE | 2019-08-23 14:20 | NUR ---
THIS NURSE AT BEDSIDE WITH DR LUX. DR LUX REMOVED TEMP. PACEMAKER. DRESSING APPLIED TO SITE. DRESSING CDI. PT HEART RATE IN 30-40. DR LUX ORDERED ATROPINE AT BEDSIDE FOR SYMPTOMATIC BRADYCARDIA. THIS NURSE NOTIFIED DR LUX PT HEART RATE IS GOING UP AND DOWN 30-130 BEATS PER MINUTE. PT IS ALSO HAVING SYMPTOMATIC PAUSES. DR LUX SAID TO HAVE EPI AND ATROPINE AT BEDSIDE. HE IS UNABLE TO PUT A PERMANENT PACEMAKER IN DUE TO INFECTION. STATED WE CAN ONLY MONITOR TONIGHT. CODE CART AND MEDICATIONS ARE AT BEDSIDE. NURSE AT BEDSIDE TO MONITOR.
[2019-08-23] MEDS ORDERED: ATROPINE INJECTION 1 MG/10 ML SYR (ABBOTT) ONE (14:21)
[2019-08-23] MEDS ORDERED: NS IV 500 ML 500 ML ONE (14:54)
--- NOTE | 2019-08-23 14:54 | NUR ---
THIS NURSE NOTIFIED DR HAQUE PT IS STILL HAVING LOW URINE OUTPUT. PT HAS ONLY HAD 50 ML OF URINE OUT THE LAST 4 HOURS. PT SBP HAS BEEN 90-100, THEREFORE JOSE J DID NOT RECOMMEND LAXIS. PT HAS BEEN DRINKING ADEQUATELY. DR HAQUE ORDERED A 500 ML BOLUS OVER AND HOURS AND TO CONTINUE TO MONITOR. Addendum: 08/23/19 at 2108 by ROMAN FOSS RN THIS NURSE NOTIFIED DR HAQUE PT IS STILL HAVING LOW URINE OUTPUT. PT HAS ONLY HAD 50 ML OF URINE OUT THE LAST 4 HOURS. PT SBP HAS BEEN 90-100, THEREFORE JOSE J DID NOT RECOMMEND LAXIS. PT HAS BEEN DRINKING ADEQUATELY. DR HAQUE ORDERED A 500 ML BOLUS OVER AN HOUR AND CONTINUE TO MONITOR.
[2019-08-23] MEDS ORDERED: NS IV 500 ML 500 ML IV ONE (15:00)
--- NOTE | 2019-08-23 16:40 | NUR ---
THIS NURSE NOTIFIED DR LUX PT IS HAVING MORE FREQUENT PAUSES OF 6-10 SECOND. PT IS SYMPTOMATIC. PT IS C/O DIZZINESS, NAUSEA, AND CONFUSION. PT HEART RATE IS STILL SUSTAINING 30-130 BEATS PER MINUTE. LAST BP WAS 102/47. DR LUX STATE "YOU DO NOT NEED TO CALL ME FOR PAUSES." DR LUX SAID TO HAVE ATROPINE AND EPI AT BEDSIDE. THIS NURSE NOTIFIED DR LUX PT DOES NOT SUSTAIN LOW HEART RATE LONG ENOUGH TO GIVE ATROPINE, PT WILL JUMP UP TO 100S. DR LUX SAID WE CAN ONLY MONITOR PT TONIGHT AND GIVE MEDS NEEDED. DR LUX SAID WE CANNOT DO PACEMAKER TONIGHT. NURSE AT BEDSIDE WITH PT. WILL CONTINUE TO MONITOR.
--- NOTE | 2019-08-23 18:06 | NUR ---
THIS NURSE NOTIFIED E-ICU PT IS HAVING SYMPTOMATIC AFIB BRADYCARDIA IN THE 30S WITH PAUSES. PT HEART RATE WILL ALSO JUMP UP TO 120-130. PT IS C/O OF NAUSEA, DIZZINESS, AND CONFUSION. SBP HAS BEEN 90-120. PT IS GETTING VERY ANXIOUS ABOUT THESE EVENTS. THIS NURSE ALSO NOTIFIED E-ICU OF DR LUX'S ORDERS TO KEEP MEDS AT BEDSIDE FOR SYMPTOMATIC BRADYCARDIA. THIS NURSE NOTIFIED E-ICU PT DOES NOT SUSTAIN BRADYCARDIA LONG ENOUGH TO GIVE ATROPINE. E-ICU SAID TO KEEP JOSE J INFORMED AND TO GO BY HIS RECOMMENDATIONS.
[2019-08-23] MEDS ORDERED: ONDANSETRON 4 MG/2 ML (SDV) Z0FRAN ONE (19:50)
[2019-08-23] MEDS ORDERED: PROMETHAZINE INJ 25 MG/ML (PHENERGAN) AMP ONE (22:26)
[2019-08-23] MEDS ORDERED: NS (IVPB) 100 ML ONE (22:27)
[2019-08-23] MEDS ORDERED: PROMETHAZINE IV ONE (22:45)
[2019-08-23] MEDS ORDERED: NS IV ONE (22:45)
[2019-08-23] MEDS ORDERED: ONDANSETRON 4 MG/2 ML (SDV) Z0FRAN IVP PRN (22:45)
[2019-08-24] VITALS (26 sets, daily range): BP systolic 88–148; BP diastolic 54–86
[2019-08-24] MEDS: RT-ALBUTEROL/IPRATROPIUM 3 ML (DUONEB) VIAL INH SCH ×6 (02:08→22:15)
[2019-08-24] MEDS: cefTRIAXone 1,000 MG/SWFI 10 ML IV PUSH IV SCH ×2 (03:00)
[2019-08-24 03:59] LABS: BASOPHILS % (AUTO) 0 % (0-10); EOSINOPHILS % (AUTO) 0 % (0-10); HEMATOCRIT 39 % (35-52); HEMOGLOBIN 12.3 G/DL (11.5-16.0); LYMPHOCYTES # (AUTO) 1.5 X 10^3 (1.0-4.0); LYMPHOCYTES % (AUTO) 8 % (12-44); MEAN CORPUSCULAR HEMOGLOBIN 30 PG (25-34); MEAN CORPUSCULAR HGB CONC 32 G/DL (32-36); MEAN CORPUSCULAR VOLUME 93 FL (80-99); MEAN PLATELET VOLUME 11.8 FL (7.4-10.4); MONOCYTES # (AUTO) 1.2 X 10^3 (0.0-1.0); MONOCYTES % (AUTO) 7 % (0-12); NEUTROPHILS # (AUTO) 15.5 X 10^3 (1.8-7.8); NEUTROPHILS % (AUTO) 85 % (42-75); PLATELET COUNT 235 10^3/uL (130-400); RED CELL DISTRIBUTION WIDTH 14.8 % (10.0-14.5); WHITE BLOOD COUNT 18.2 10^3/uL (4.3-11.0)
[2019-08-24 04:07] LABS: ABG BASE EXCESS -1.9 MMOL/L (-2.5-2.5); ABG OXYGEN SATURATION 50 % (94-100); ABG PCO2 47 MMHG (35-45); ABG TCO2 24.7 MMOL/L (21.0-31.0)
[2019-08-24 04:08] LABS: ABG PH 7.32 (7.37-7.43); ALLENS TEST POSITIVE; INSPIRED O2 HIGH FLOW NC 8L; PATIENT TEMP 37.3; VENTILATOR NO
[2019-08-24 04:09] LABS: ABG PO2 32 MMHG (79-93); BILIRUBIN,URINE NEGATIVE (NEGATIVE); CLARITY,URINE CLEAR; COLOR,URINE YELLOW; GLUCOSE, URINE (UA) NEGATIVE (NEGATIVE); KETONES,URINE NEGATIVE (NEGATIVE); LEUKOCYTE ESTERASE ,URINE NEGATIVE (NEGATIVE); NITRITE,URINE NEGATIVE (NEGATIVE); PROTEIN,URINE NEGATIVE (NEGATIVE)
[2019-08-24 04:13] LABS: ALBUMIN 3.4 GM/DL (3.2-4.5); BILIRUBIN,TOTAL 0.5 MG/DL (0.1-1.0); CALCIUM 8.3 MG/DL (8.5-10.1); CREATININE SERUM 1.26 MG/DL (0.60-1.30); MAGNESIUM 1.9 MG/DL (1.6-2.4); POTASSIUM 4.2 MMOL/L (3.6-5.0); TOTAL PROTEIN 6.2 GM/DL (6.4-8.2)
[2019-08-24 04:16] LABS: BACTERIA,URINE FEW /HPF; RBC,URINE RARE /HPF; SQUAMOUS EPITHELIAL CELL,UR 0-2 /HPF; WBC,URINE RARE /HPF
[2019-08-24] MEDS: POTASSIUM CL 10MEQ/50ML IVPB 50 ML IV SCH (04:17)
[2019-08-24] MEDS: NS IV 1000 ML 1,000 ML IV SCH (04:17)
[2019-08-24] MEDS: LACTATED RINGERS 1,000 ML IV SCH (04:17)
[2019-08-24] MEDS: MAGNESIUM 1 GM/100 ML IVPB 100 ML IV SCH (04:18)
[2019-08-24] MEDS: KCL 20 MEQ TAB (K-DUR) PO SCH (04:18)
--- NOTE | 2019-08-24 05:23 | Pulmonary Progress Note ---
Subjective Time Seen by a Provider: 05:18 Subjective/Events-last exam Pt is currently being externally paced. Sepsis Event Evaluation Height, Weight, BMI Height: '" Weight: lbs. oz. kg; 31.00 BMI Method: Focused Exam Lactate Level 08/23/19 05:57: Lactic Acid Level 1.61 Exam Exam Vital Signs Date Time Temp Pulse Resp B/P (MAP) Pulse Ox O2 Delivery O2 Flow Rate FiO2 08/24/19 04:00 High Flow N/C 10.00 08/24/19 04:00 37.3 08/24/19 03:00 129 18 124/71 (88) 96 High Flow N/C 8.00 08/24/19 02:10 98 Nasal Cannula 8.00 08/24/19 02:10 87 13 98 High Flow N/C 8.00 08/24/19 02:00 94 13 102/74 (83) 98 High Flow N/C 10.00 08/24/19 01:00 94 08/24/19 01:00 94 13 88/56 (67) 98 High Flow N/C 10.00 08/24/19 00:00 112 19 101/69 (80) 96 High Flow N/C 10.00 08/24/19 00:00 High Flow N/C 10.00 08/24/19 00:00 36.1 08/23/19 23:00 120 22 106/68 (81) 96 High Flow N/C 10.00 08/23/19 22:15 122 19 120/80 (93) 95 High Flow N/C 10.00 08/23/19 22:00 108 17 105/77 (86) 96 Nasal Cannula 5.00 08/23/19 21:51 94 Nasal Cannula 10.00 08/23/19 21:00 114 26 134/66 (88) 95 Nasal Cannula 5.00 08/23/19 20:20 36.5 08/23/19 20:00 High Flow N/C 10.00 08/23/19 20:00 39 26 106/48 (67) 92 Nasal Cannula 5.00 08/23/19 19:45 105 12 119/61 (80) 95 Nasal Cannula 5.00 08/23/19 19:00 112 08/23/19 19:00 112 26 87/60 (69) 93 Nasal Cannula 5.00 08/23/19 18:00 104 29 115/58 (77) 92 Nasal Cannula 5.00 08/23/19 17:52 96 Nasal Cannula 5.00 08/23/19 17:45 Nasal Cannula 5.00 08/23/19 17:12 Nasal Cannula 6.00 08/23/19 17:00 96 20 109/56 (73) 91 Nasal Cannula 7.00 08/23/19 16:00 100 15 125/90 (102) 95 Nasal Cannula 7.00 08/23/19 16:00 Nasal Cannula 7.00 08/23/19 15:45 Nasal Cannula 7.00 08/23/19 15:00 102 21 115/64 (81) 96 Nasal Cannula 8.00 08/23/19 14:18 Nasal Cannula 8.00 08/23/19 14:05 95 Nasal Cannula 8.00 08/23/19 14:00 42 25 113/94 (100) 87 Nasal Cannula 3.00 08/23/19 13:00 109 08/23/19 13:00 87 24 97 Nasal Cannula 3.00 08/23/19 12:00 106 21 139/80 (99) 84 Nasal Cannula 3.00 08/23/19 12:00 Nasal Cannula 3.00 08/23/19 11:20 36.9 08/23/19 11:00 105 25 138/66 (90) 100 Nasal Cannula 3.00 08/23/19 10:31 94 Nasal Cannula 3.00 08/23/19 10:00 103 140/85 (103) 95 Nasal Cannula 3.00 08/23/19 09:00 99 16 136/69 (91) 92 Nasal Cannula 3.00 08/23/19 08:00 43 26 122/59 (80) 93 Nasal Cannula 3.00 08/23/19 08:00 Nasal Cannula 3.00 08/23/19 07:00 105 08/23/19 07:00 55 16 124/80 (95) 91 Nasal Cannula 3.00 08/23/19 07:00 36.0 08/23/19 06:45 91 Nasal Cannula 3.00 08/23/19 06:00 50 18 119/58 (78) 90 Nasal Cannula 3.00 I & O 08/24/19 07:00 Intake Total 2390.5 ml Output Total 605 ml Balance 1785.5 ml Height & Weight Height: '" Weight: lbs. oz. kg; 31.00 BMI Method: General Appearance: WD/WN, Anxious, Mild Distress Neck: Normal Inspection, Non Tender, Limited Range of Motion Respiratory: Normal Breath Sounds, No Accessory Muscle Use, No Respiratory Distress, Decreased Breath Sounds Cardiovascular: Irregularly Irregular Capillary Refill: Less Than 3 Seconds Extremity: Non Tender, No Calf Tenderness, No Pedal Edema, Other (Arthritis changes of her hands) Neurologic/Psychiatric: Alert, Oriented x3, No Motor/Sensory Deficits, Normal Mood/Affect Skin: Normal Color, Warm/Dry Results Lab Laboratory Tests 08/22/19 14:50 08/23/19 02:55 08/24/19 03:17 Assessment/Plan Assessment/Plan Acute respiratory failure -- Pt feels better currently while being externally paced -discussed with family regarding intubation/DNR vs full code and they are going to discuss with other family members -Pt is very critical currently however is currently looking better. Will hold off on intubation and cardiology recommendations. -IS BiPAP 15/5 PRN Bradycardia with NSTEMI -Cardiology is following -S/p cath and pacemaker -externally pacemaker malfunctioned yesterday and was d/c'd -Pt is currently being externally paced. Pain at pacemaker site -pain control Metabolic acidosis -- improving -cautious IVF and monitor close - Weakness frequent falls -may need ECF -PT/OT HTN Emergency -Monitor close UTI -PAUL Sierra DO Aug 24, 2019 05:23
--- NOTE | 2019-08-24 07:28 | Diagnostic Imaging Report ---
EXAMINATION: Chest radiograph, portable AP view. DATE: 08/24/2019 4:03 AM hours. INDICATION: 89-year-old female, shortness of breath and chest pain. COMPARISON: August 22, 2019. FINDINGS: Stable overall appearance of the cardiomediastinal silhouette. There is no identified pneumothorax. There is blunting of the right lateral costophrenic angle. There is obscuration of visualization of the left hemidiaphragm. There is nonspecific bibasilar airspace consolidation. There are also bilateral interstitial opacities. There is probable fluid in the right minor fissure. IMPRESSION: 1. Redemonstrated multifocal lung consolidation as described above with fairly similar appearance of the comparison exam. There is interval increase in blunting of the right lateral costophrenic angle and probable small amount of fluid in the right minor fissure likely relating to right-sided pleural effusion. There is also a potential left pleural effusion present. Dictated by: Dictated on workstation # [id number]
[2019-08-24] MEDS ORDERED: HEParin (CATH LAB) 1,000 ML IV ONE (08:17)
[2019-08-24] MEDS ORDERED: LIDOCAINE 1% INJ 20 ML 20 ML VIAL ONE (08:17)
--- NOTE | 2019-08-24 08:25 | Cardiology Progress Note ---
Subjective Date Seen by Provider: Aug 24, 2019 Time Seen by Provider: 08:23 Subjective/Events-last exam Patient is laying down in bed, feeling better, denied any chest pain, have transcutaneous pacemaker Review of Systems General: No Chills, No Night Sweats, No Fatigue, No Malaise, No Appetite, No Other HEENT: No Head Aches, No Visual Changes, No Eye Pain, No Ear Pain, No Dysphasia, No Sinus Congestion, No Post Nasal Drip, No Sore Throat, No Other Pulmonary: Dyspnea; No Cough, No Pleuritic Chest Pain, No Other Cardiovascular: No: Chest Pain, Palpitations, Orthopnea, Paroxysmal Noc. Dyspnea, Edema, Lt Headedness, Other Focused Exam Lactate Level 08/23/19 05:57: Lactic Acid Level 1.61 Objective-Cardiology Exam Last Set of Vital Signs Vital Signs 08/24/19 08/24/19 07:48 08:00 Temp 37.0 Pulse 91 Resp 20 B/P (MAP) 120/78 (92) Pulse Ox 95 O2 Delivery High Flow N/C O2 Flow Rate 8.00 Capillary Refill : Less Than 3 Seconds I&O Intake and Output 08/24/19 00:00 Intake Total 1800 ml Output Total 455 ml Balance 1345 ml Intake Oral 1180 ml IV Total 620 ml Output Urine Total 455 ml General: Alert, Oriented X3, Cooperative HEENT: Atraumatic, PERRLA Neck: Supple, No JVD, No Thyromegaly Lungs: Clear to Auscultation, Normal Air Movement Heart: Normal S1, Normal S2, Other (Systolic murmur at the left sternal border, tachycardia) Abdomen: Normal Bowel Sounds, Soft, No Tenderness, No Hepatosplenomegaly, No Masses Extremities: No Clubbing, No Cyanosis, No Edema, Normal Pulses, No Tenderness/Swelling Skin: No Rashes, No Breakdown, No Significant Lesion Neuro: Normal Gait, Normal Speech, Strength at 5/5 X4 Ext, Normal Tone, Sensation Intact Psych/Mental Status: Mental Status NL, Mood NL Results Lab Laboratory Tests 08/24/19 03:17 A/P-Cardiology Admission Diagnosis Subacute myocardial infarction Coronary artery disease Sinus node dysfunction Hypertension Assessment/Plan Subacute myocardial infarction, type II [place] secondary to severe bradycardia. Coronary artery disease, cardiac catheterization showed mild coronary artery disease nonobstructive disease, medical therapy is recommended. Echocardiogram showed normal LV size and function with ejection fraction 45 percent. 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 Patient became more symptomatic and transcutaneous pacemaker was placed pacing at 60 bpm, currently heart rate is around 80. Planning to proceed with permanent pacemaker implant Urinary tract infection, improving on antibiotics Questionable pulmonary infiltrate on chest x-ray. Receiving Rocephin, managed by Dr. Barry Hypertension, has been on Norvasc, blood pressure was elevated after the pac emaker implant, started her on KRISTOPHER inhibitor and will continue monitoring. Orthostatic hypotension and dizziness probably due to bradycardia. Multiple skin lesion on the back with multiple moles Clinical Quality Measures DVT/VTE Risk/Contraindication: Risk Factor Score Per Nursin RFS Level Per Nursing on Admit: 2=Moderate KRYSTAL LUX MD Aug 24, 2019 08:25
[2019-08-24] MEDS ORDERED: VANCOMYCIN INJECTION 1,000 MG in NS (IVPB) 250 ML IV NR (08:30)
[2019-08-24] MEDS ORDERED: BACITRACIN INJECTION 50,000 UNIT, SODIUM CHLORIDE 0.9% IRRIGATIO 500 ML IR ONE ×2 (08:30)
[2019-08-24] MEDS ORDERED: ceFAZolin INJECTION 1,000 MG VIAL IV ONE (08:30)
[2019-08-24] MEDS ORDERED: WATER (STERILE) FOR INJECTION 10 ML ONE (08:33)
--- NOTE | 2019-08-24 08:41 | NUR ---
Timeline note below: 1904 This RN at bedside with angel RNShirley. Pt having 6-10 second periods of Asystole. Pt states "It's happening again" right before asystole period begins. Pt stating she "doesn't feel well" pt also increasingly SOB. [address] Trinh while at bedside, did not reach him via telephone at this time. [address] Torres to report update on patient. This RN reports that patient is having frequent periods of Asystole lasting 6-10 seconds. Patient is symptomatic experiencing SOB, nausea and is lightheaded. Patient in Afib and HR ranging from Asystole to 130's. New order received to externally pace with the Zoll from Dr. Torres. 1912 Pt connected to Zoll and is being paced at rate of 60 and 8 mA.[address] Trinh again to give update on patient, did not reach him via telephone at this time again. This RN then sent text message through work phone to notify Dr. Trinh of external pacing in place with rate of [address] Trinh called this RN, new order received to discontinue externalpacing with Zoll. Orders received to have Atropine and Epinephrine at bedside and to use as needed. Dr. Trinh stated "6-10 seconds of asystole will not kill her". This RN requested parameters before giving Atropine and Epi since patient's heart rate is inconsistent ranging from zero to [address]'s. Dr. Trinh informed this RN to give Atropine and Epi if needed. 1957 Pt HR sustaining in low 30's, patient symptomatic and c/o dizziness, lightheaded and nauseous.LITO Watson administered 1mg atropine at this time with this RN present at bedside. [address] Torres to give update on patient status. Patient continuing to have extended periods of asystole and continues to be symptomatic with oxygen saturation in 80's upon asystole episodes. Pt becoming confused and increasingly nauseous. This RN increased patient's high flow NC to 10L and patient able to recover Sa02 into mid 90's. This RN stated concern to Dr. Torres in regards to patient condition. 2041 Dr. Torres called this RN to notify that she spoke with Dr. Trihn directly. New order received at this time to externally pace the patient with Zoll rate of 60 and 8mA. 2226 Pt still nauseous and dry heaving despite administered Zofran. This RN notified EICU of nausea, new orders received at this time. 0526 Dr. Barry updated on patient status. 0532 Dr. Barry at bedside assessing patient and discussing code status with family. No new orders at this time.
[2019-08-24] MEDS: ASPIRIN E.C. 81 MG (ECOTRIN) TAB PO SCH (08:43)
[2019-08-24] MEDS ORDERED: NS IV 1000 ML 1,000 ML ONE (09:09)
--- NOTE | 2019-08-24 09:42 | NUR ---
PT LEFT FLOOR W/ CARDIOGRAPH OPERATOR STAFF AND FAMILY
[2019-08-24] MEDS ORDERED: MIDAZOLAM 5 MG/5 ML (VERSED) VIAL ONE (09:58)
[2019-08-24] MEDS ORDERED: fentaNYL INJECTION 100 MCG/2 ML AMP ONE (09:58)
--- NOTE | 2019-08-24 10:05 | Cardiac Procedure Note-CS/ASA ---
Pre-Procedure Note Pre-Op Procedure Note H&P Reviewed The H&P was reviewed, patient examined and no changes noted. Date H&P Reviewed: Aug 24, 2019 Time H&P Reviewed: 10:05 Conscious Sedation Pre-Proced Time 10:05 ASA Score 3 For ASA 3 and 4: Consider anesthesia and medical clearance. Also, for patients with a history of failed moderate sedation consider anesthesia. Airway Lungs Heart ASA score ASA 1: a normal healthy patient ASA 2: a patient with a mild systemic disease (mid diabetes, controlled hypertension, obesity x ASA 3: a patient with a severe systemic disease that limits activity (angina, COPD, prior Myocardial infarction) ASA 4: a patient with an incapacitating disease that is a constant threat to life (CHF, renal failure) ASA 5: a moribund patient not expected to survive 24 hrs. (ruptured aneurysm) ASA 6: a declared brain- patient whose organs are being harvested. For emergent operations, add the letter E after the classification Mallampati Classification Grade 3 Sedation Plan Analgesia, Amnesia, Plan communicated to team members, Discussed options with patient/fam, Discussed risks with patient/fam The patient is an appropriate candidate to undergo the planned procedure, sedation, and anesthesia. The patient immediately re-assessed prior to indication. KRYSTAL LUX MD Aug 24, 2019 10:05
[2019-08-24] MEDS ORDERED: meTOprolol 5 MG/5 ML (LOPRESSOR) VIAL ONE ×2 (10:38→10:58)
[2019-08-24] MEDS ORDERED: NEO/POLY/BAC (NEOSPORIN) OINT 15 GM TUBE ONE (10:53)
[2019-08-24] MEDS ORDERED: NS IV 1000 ML 1,000 ML IV SCH (10:59)
[2019-08-24] MEDS ORDERED: PATIENT MAY USE OWN MEDS, ALL PO SCH (11:00)
[2019-08-24] MEDS ORDERED: FUROSEMIDE 40 MG/4 ML INJ (LASIX) ONE (11:12)
[2019-08-24] MEDS ORDERED: FUROSEMIDE 40 MG/4 ML INJ (LASIX) IVP ONE (11:15)
--- NOTE | 2019-08-24 11:30 | NUR ---
PT BACK TO [facility] VIA BED W/ GEOTECHNICIAL PROPERTIES TECHNICIAN STAFF. LASIX 40MG IV GIVEN BY GEOTECHNICIAL PROPERTIES TECHNICIAN STAFF.
[2019-08-24] MEDS: dilTIAZem DRIP PRE-MIX 125 ML IV SCH (12:01)
--- NOTE | 2019-08-24 12:14 | Permanent Pacemaker Implant ---
Dual Chamber Pacemaker Implant PROCEDURE PHYSICIAN: Siena Trinh DUAL CHAMBER PACEMAKER IMPLANTATION: DATE OF PROCEDURE: 08/24/19 REFERRING PHYSICIAN: Dr. Salima Gonzalez ATTENDING PHYSICIAN: Dr. Salima Gonzalez INDICATION: Severe bradycardia PREOPERATIVE DIAGNOSIS: Sinus node dysfunction, complete heart block, paroxysmal atrial fibrillation POSTOPERATIVE DIAGNOSIS: Same HISTORY: Dual-chamber permanent pacemaker was recommended. PROCEDURE PERFORMED: 1. Single chamber permanent pacemaker implantation. 2. Fluoroscopy. 3. Central venous access. ANESTHESIA: Local anesthesia, conscious sedation. COMPLICATIONS: None. ESTIMATED BLOOD LOSS:20 mL. SPECIMENS: None. ORAL ANTICOAGULATION: None. FLUOROSCOPY TIME: FLUOROSCOPY DOSE: CONTRAST DOSE: PROCEDURE DETAILS: The patient is a 89 female and after all of the patients questions were answered, the patient was brought to the EP Lab. The patient's left chest was prepped and draped in sterile fashion. A 2 inch horizontal incision was made 1 cm below the clavicle and dissection carried down to the pectoralis fascia. Using the modified Seldinger technique and under fluoroscopy guidance, the anterior aspect of the left axillary vein was accessed 2 times. The J wires were secured to the drapes with a mosquito clamp. A 7-Croatian sheath was introduced over one of the J-wires. The RV lead was then inserted. The RV lead was directed across the tricuspid valve to the apical septal portion of the right ventricle. The position was checked in SAUMYA and BANDA views. The screw was deployed and the lead connected to the senior application programmer. Close sensing and pacing thresholds were obtained. Diaphragmatic pacing was ruled out. The lead was secured with 2-0 silk ties to the underlying muscle and fascia. The lead was connected to the device in a hermetic fashion. The device and leads were placed in the pocket. Aggressive irrigation with saline solution was done. The device was secured to the underlying muscle and fascia with a 2-0 silk tie. interrogation of the device revealed good integrity of all the leads and good connections. The wound was then closed using 2 layers. The first layer was interrupted 2-0 absorbable Vicryl suture. The last layer was a single subcuticular layer with 4- 0 Vicryl suture. Half inch Steri-Strips and a small dressing were then applied to the wound. The patient tolerated the procedure well and was returned to the recovery room in stable condition with stable vital signs. DEVICE INFORMATION: [facility] [id number] RV LEAD: [id number] PER-OPERATIVE DEVICE INTERROGATION: Good sensing and capture activity IMMEDIATE POSTOPERATIVE DEVICE INTERROGATION: Threshold 0.4 at 0.6 V, impedance 760, R wave measured as 5 mV PLAN: The patient transferred to the ICU. We will continue with two more doses of IV antibiotics. We will check a chest x-ray and interrogate the device in the morning. The patient will continue on oral antibiotics for 5 days. CONCLUSION: Successful implantation of single-chamber pacemaker SIENA TRINH MD Aug 24, 2019 12:14
--- NOTE | 2019-08-24 12:33 | Diagnostic Imaging Report ---
INDICATION: Arrhythmia. EXAMINATION: Portable chest at 11:43 AM. FINDINGS: There is a unipolar pacemaker. The heart size is normal. There is pulmonary vascular congestion with some interstitial edema. IMPRESSION: The pulmonary vascular congestion appears similar to the previous exam. There is interval placement of a unipolar pacemaker. There is no evidence for pneumothorax. Dictated by: Dictated on workstation # [id number]
[2019-08-24] MEDS ORDERED: LORA10TA76 PO (14:56)
--- NOTE | 2019-08-24 14:57 | NUR ---
SPOKE WITH THE PT WELL CALL[facility] [place] TO COMPLETE THE MED REC. PT SAID SHE WAS ON A BLOOD PRESSURE MEDICATION THAT SHE GETS AT [facility] IN [place]- HOWEVER WHEN I CALLED THEM THEY DID NOT HAVE ANYTHING ON FILE. I THEM REACHED OUT TO [facility] TO DOUBLE CHECK AND THEY HAVE NEVER FILLED FOR THIS PATIENT. OTC MEDS: TERE THOMASN Addendum: 08/25/19 at 1126 by CHUCK CAMARENA lcac radar operator/navigator I STOPPED BACK IN TO ASK THE PT ONCE AGAIN WHERE SHE FILLED PER BLOOD PRESSURE MEDICATION. THIS TIME SHE TOLD ME EGOVANNI. I CALLED [facility] IN [place] AND THEY HAD FILLED AMLODIPINE 5MG ON 03-13-2019 #90- DUE TO THE LAST DATING I HAVE LEFT THIS OFF HER MED REC
--- NOTE | 2019-08-24 15:49 | NUR ---
CM/SS visited with the patient for social service consult. The patient will not be returning to her home she will be moving in with her son and gaaprnlk-lk-awe. Possible caregivers or home health due to Left arm weakness. The patient, her son, and rgfecdqj-dg-fnm were present in the room at time of visit. The patient stated that she is really starting to feel better after her procedure. The patient does appear to be pleasantly confused. CM/SS asked the patient how she was currently doing at home and the patient stated she thought she was doing well and still able to get around. The patients zjlbsvvp-yr-cce, Buck was shaking her head "no" as the patient was making that statement. The patient did however state that she does struggle financially. CM/SS will refer Odette from [employer] to speak with the patient and family about Medicaid. Buck stated, that the patients home is not "fit for anyone" to live in. CM/SS asked Buck if this was a temporary move and she stated it would be retirement. The patient will need medications upon discharge. CM/SS will assist with any medication needs.
[2019-08-24] MEDS: FUROSEMIDE 40 MG/4 ML INJ (LASIX) IVP SCH (16:09)
--- NOTE | 2019-08-24 18:15 | Progress Note ---
Subjective Subjective/Events-last exam Patient on external pacer this AM. Will have pacemaker placed this AM. Denies any chest pain. Having some shortness of breath with minimal activity. NPO this AM Review of Systems Pulmonary: Dyspnea Cardiovascular: No: Chest Pain, Palpitations Gastrointestinal: No: Nausea, Vomiting, Abdominal Pain, Diarrhea, Constipation Neurological: Weakness Focused Exam Lactate Level 08/23/19 05:57: Lactic Acid Level 1.61 Objective Exam Last Set of Vital Signs Vital Signs Date Time Temp Pulse Resp B/P (MAP) Pulse Ox O2 Delivery O2 Flow Rate FiO2 08/24/19 17:00 97 28 136/84 (101) 95 High Flow N/C 5.00 08/24/19 15:17 36.8 Capillary Refill : Less Than 3 Seconds I&O Intake and Output 08/24/19 00:00 Intake Total 1800 ml Output Total 455 ml Balance 1345 ml Intake Oral 1180 ml IV Total 620 ml Output Urine Total 455 ml General: Alert, Oriented X3, Cooperative, No Acute Distress Lungs: Clear to Auscultation, Normal Air Movement Heart: No Murmurs, Other (bradycardic rate) Abdomen: Normal Bowel Sounds, Soft, No Tenderness, No Masses Neuro: Sensation Intact, Cranial Nerves 3-12 NL Results/Procedures Lab Laboratory Tests 08/24/19 03:17: White Blood Count 18.2H, Red Blood Count 4.12L, Hemoglobin 12.3, Hematocrit 39, Mean Corpuscular Volume 93, Mean Corpuscular Hemoglobin 30, Mean Corpuscular Hemoglobin Concent 32, Red Cell Distribution Width 14.8H, Platelet Count 235, Mean Platelet Volume 11.8H, Neutrophils (%) (Auto) 85H, Lymphocytes (%) (Auto) 8L, Monocytes (%) (Auto) 7, Eosinophils (%) (Auto) 0, Basophils (%) (Auto) 0, Neutrophils # (Auto) 15.5H, Lymphocytes # (Auto) 1.5, Monocytes # (Auto) 1.2H, Eosinophils # (Auto) 0.0, Basophils # (Auto) 0.0, Sodium Level 136, Potassium Level 4.2, Chloride Level 105, Carbon Dioxide Level 18L, Anion Gap 13, Blood Urea Nitrogen 25H, Creatinine 1.26, Estimat Glomerular Filtration Rate 40, BUN/Creatinine Ratio 20, Glucose Level 139H, Calcium Level 8.3L, Corrected Calcium 8.8, Phosphorus Level 4.0, Magnesium Level 1.9, Total Bilirubin 0.5, Aspartate Amino Transf (AST/SGOT) 47H, Alanine Aminotransferase (ALT/SGPT) 21, Alkaline Phosphatase 83, Total Protein 6.2L, Albumin 3.4 08/24/19 04:00: Urine Color YELLOW, Urine Clarity CLEAR, Urine pH 6.0, Urine Specific [place] 1.010L, Urine Protein NEGATIVE, Urine Glucose (UA) NEGATIVE, Urine Ketones NEGATIVE, Urine Nitrite NEGATIVE, Urine Bilirubin NEGATIVE, Urine Urobilinogen 0.2, Urine Leukocyte Esterase NEGATIVE, Urine RBC (Auto) TRACE-I, Urine RBC RARE, Urine WBC RARE, Urine Squamous Epithelial Cells 0-2, Urine Crystals NONE, Urine Bacteria FEWH, Urine Casts NONE, Urine Mucus NEGATIVE, Urine Culture Indicated NO, Blood Gas Puncture Site LEFT RADIAL, Blood Gas Patient Temperature 37.3, Arterial Blood pH 7.32*L, Arterial Blood Partial Pressure CO2 47H, Arterial Blood Partial Pressure O2 32*L, Arterial Blood HCO3 23, Arterial Blood Total CO2 24.7, Arterial Blood Oxygen Saturation 50L, Arterial Blood Base Excess -1.9, Juan R Test POSITIVE, Blood Gas Ventilator Setting NO, Blood Gas Inspired Oxygen HIGH FLOW NC 8L Microbiology 08/22/19 MRSA Screen - Final, Complete MRSA not isolated 08/22/19 Urine Culture - Final, Complete Enterobacter cloacae complex Assessment/Plan Assessment/Plan (1) NSTEMI (non-ST elevated myocardial infarction) Status: Acute Assessment & Plan: - Likely demand ischemia 2/2 bradycardia, Cardiology consulted and managing (2) CHF (congestive heart failure) Status: Acute Qualifiers: Qualified Codes: I50.9 - Heart failure, unspecified (3) Atrial fibrillation Status: Acute Qualifiers: Qualified Codes: I48.91 - Unspecified atrial fibrillation (4) Bradycardia Status: Acute Clinical Quality Measures DVT/VTE Risk/Contraindication: Risk Factor Score Per Nursin RFS Level Per Nursing on Admit: 2=Moderate LORA SMITH MD Aug 24, 2019 18:15
[2019-08-24] MEDS: meTOprolol TARTRATE 25 MG (LOPRESSOR) TABLET PO SCH (20:32)
[2019-08-24] MEDS: APIXABAN 5 MG (ELIQUIS) TABLET PO SCH (20:32)
[2019-08-25] VITALS (12 sets, daily range): BP systolic 104–138; BP diastolic 49–104
[2019-08-25] MEDS: RT-ALBUTEROL/IPRATROPIUM 3 ML (DUONEB) VIAL INH SCH ×5 (01:35→19:32)
[2019-08-25] MEDS: cefTRIAXone 1,000 MG/SWFI 10 ML IV PUSH IV SCH ×2 (02:36)
[2019-08-25 03:36] LABS: BASOPHILS % (AUTO) 0 % (0-10); EOSINOPHILS # (AUTO) 0.3 10^3/uL (0.0-0.3); EOSINOPHILS % (AUTO) 2 % (0-10); HEMATOCRIT 38 % (35-52); HEMOGLOBIN 12.2 G/DL (11.5-16.0); LYMPHOCYTES # (AUTO) 2.8 X 10^3 (1.0-4.0); LYMPHOCYTES % (AUTO) 19 % (12-44); MEAN CORPUSCULAR HEMOGLOBIN 30 PG (25-34); MEAN CORPUSCULAR HGB CONC 32 G/DL (32-36); MEAN CORPUSCULAR VOLUME 93 FL (80-99); MEAN PLATELET VOLUME 11.4 FL (7.4-10.4); MONOCYTES # (AUTO) 1.9 X 10^3 (0.0-1.0); MONOCYTES % (AUTO) 13 % (0-12); NEUTROPHILS # (AUTO) 9.6 X 10^3 (1.8-7.8); NEUTROPHILS % (AUTO) 66 % (42-75); PLATELET COUNT 245 10^3/uL (130-400); RED CELL DISTRIBUTION WIDTH 14.8 % (10.0-14.5); WHITE BLOOD COUNT 14.5 10^3/uL (4.3-11.0)
[2019-08-25 03:58] LABS: ALBUMIN 3.2 GM/DL (3.2-4.5); BILIRUBIN,TOTAL 0.3 MG/DL (0.1-1.0); CALCIUM 8.2 MG/DL (8.5-10.1); CREATININE SERUM 1.14 MG/DL (0.60-1.30); MAGNESIUM 1.6 MG/DL (1.6-2.4); PHOSPHORUS 3.5 MG/DL (2.3-4.7); TOTAL PROTEIN 5.9 GM/DL (6.4-8.2)
[2019-08-25] MEDS: POTASSIUM CL 10MEQ/50ML IVPB 50 ML IV SCH (04:00)
[2019-08-25] MEDS: MAGNESIUM 1 GM/100 ML IVPB 100 ML IV SCH ×3 (04:00→04:12)
[2019-08-25] MEDS: KCL 20 MEQ TAB (K-DUR) PO SCH (04:00)
--- NOTE | 2019-08-25 05:10 | Pulmonary Progress Note ---
Subjective Time Seen by a Provider: 05:03 Subjective/Events-last exam s/p pacemaker and doing better. Sepsis Event Evaluation Height, Weight, BMI Height: '" Weight: lbs. oz. kg; 31.00 BMI Method: Focused Exam Lactate Level 08/23/19 05:57: Lactic Acid Level 1.61 Exam Exam Vital Signs Date Time Temp Pulse Resp B/P (MAP) Pulse Ox O2 Delivery O2 Flow Rate FiO2 08/25/19 04:36 37.0 08/25/19 04:30 High Flow N/C 2.00 08/25/19 04:00 60 19 104/49 (67) 93 High Flow N/C 1.00 08/25/19 03:56 High Flow N/C 4.00 08/25/19 03:55 High Flow N/C 1.00 08/25/19 03:00 60 24 115/58 (77) 95 High Flow N/C 2.00 08/25/19 02:00 60 21 119/56 (77) 93 High Flow N/C 2.00 08/25/19 01:54 High Flow N/C 2.00 08/25/19 01:35 97 High Flow N/C 5.00 08/25/19 01:00 60 25 121/55 (77) 97 High Flow N/C 4.00 08/25/19 00:36 91 08/25/19 00:23 High Flow N/C 4.00 08/25/19 00:10 High Flow N/C 4.00 08/25/19 00:00 85 17 121/62 (81) 96 High Flow N/C 5.00 08/24/19 23:56 36.8 08/24/19 23:00 100 26 124/60 (81) 92 High Flow N/C 5.00 08/24/19 22:15 97 High Flow N/C 5.00 08/24/19 22:00 79 24 117/55 (75) 97 High Flow N/C 5.00 08/24/19 21:00 69 21 111/60 (77) 96 High Flow N/C 5.00 08/24/19 20:45 High Flow N/C 5.00 08/24/19 20:00 86 37 103/55 (71) 96 High Flow N/C 5.00 2/17/20 20:00 37.5 08/24/19 19:00 83 28 109/56 (73) 97 High Flow N/C 5.00 08/24/19 18:47 87 08/24/19 18:37 94 High Flow N/C 5.00 08/24/19 18:00 82 25 106/54 (71) 95 High Flow N/C 5.00 08/24/19 17:00 97 28 136/84 (101) 95 High Flow N/C 5.00 08/24/19 16:00 85 33 127/68 (87) 90 High Flow N/C 5.00 08/24/19 15:27 95 Nasal Cannula 5.00 08/24/19 15:17 36.8 08/24/19 15:07 High Flow N/C 5.00 08/24/19 15:00 76 21 124/72 (89) 95 High Flow N/C 6.00 08/24/19 14:30 89 22 135/79 (97) 96 High Flow N/C 6.00 08/24/19 14:00 81 21 130/66 (87) 95 High Flow N/C 8.00 08/24/19 13:14 High Flow N/C 8.00 08/24/19 13:00 88 148/85 (106) 98 High Flow N/C 10.00 08/24/19 12:45 82 136/78 (97) 97 OxyMask 10.00 08/24/19 12:21 97 08/24/19 12:15 72 28 123/76 (92) 98 OxyMask 10.00 08/24/19 12:00 86 18 140/74 (96) 97 OxyMask 10.00 08/24/19 12:00 OxyMask 10.00 08/24/19 11:45 82 18 120/69 (86) 96 OxyMask 10.00 08/24/19 11:30 87 137/86 (103) OxyMask 10.00 08/24/19 11:24 98 Nasal Cannula 10.00 08/24/19 10:00 92 96 High Flow N/C 8.00 08/24/19 09:00 93 18 140/74 (96) 97 High Flow N/C 8.00 08/24/19 08:00 High Flow N/C 8.00 08/24/19 08:00 91 20 120/78 (92) 95 High Flow N/C 8.00 08/24/19 07:48 37.0 08/24/19 07:00 97 08/24/19 06:57 96 19 141/72 (95) 95 High Flow N/C 8.00 08/24/19 06:00 98 13 95 High Flow N/C 8.00 I & O 08/25/19 07:00 Intake Total 1710 ml Output Total 3300 ml Balance -1590 ml Height & Weight Height: '" Weight: lbs. oz. kg; 31.00 BMI Method: General Appearance: WD/WN, Anxious, Mild Distress Neck: Normal Inspection, Non Tender, Limited Range of Motion Respiratory: Normal Breath Sounds, No Accessory Muscle Use, No Respiratory Distress, Decreased Breath Sounds Cardiovascular: Irregularly Irregular Capillary Refill: Less Than 3 Seconds Extremity: Non Tender, No Calf Tenderness, No Pedal Edema, Other (Arthritis changes of her hands) Neurologic/Psychiatric: Alert, Oriented x3, No Motor/Sensory Deficits, Normal Mood/Affect Skin: Normal Color, Warm/Dry Results Lab Laboratory Tests 08/24/19 03:17 08/25/19 02:55 Assessment/Plan Assessment/Plan Acute respiratory failure -- -IS BiPAP 15/5 PRN Bradycardia with NSTEMI -Cardiology is following -S/p cath and perm pacemaker Development of right infiltrate pneumonia vs pleural effusion -Check BNP -Will give 40 of IV Lasix now -Currently on Rocephin Metabolic acidosis -- improving - monitor Weakness frequent falls -may need ECF -PT/OT HTN Emergency -Monitor close UTI -PAUL Sierra DO Aug 25, 2019 05:10
[2019-08-25] MEDS: FUROSEMIDE 40 MG/4 ML INJ (LASIX) IVP SCH ×2 (06:19→16:45)
[2019-08-25] MEDS ORDERED: FUROSEMIDE 40 MG/4 ML INJ (LASIX) IVP ONE (06:30)
--- NOTE | 2019-08-25 08:01 | Cardiology Progress Note ---
Subjective Date Seen by Provider: Aug 25, 2019 Time Seen by Provider: 07:59 Subjective/Events-last exam Patient is sitting in bed, feeling better, breathing better. No new complaint Review of Systems General: No Chills, No Night Sweats; Fatigue; No Malaise, No Appetite, No Other HEENT: No Head Aches, No Visual Changes, No Eye Pain, No Ear Pain, No Dysphasia, No Sinus Congestion, No Post Nasal Drip, No Sore Throat, No Other Pulmonary: Dyspnea; No Cough, No Pleuritic Chest Pain, No Other Cardiovascular: No: Chest Pain, Palpitations, Orthopnea, Paroxysmal Noc. Dyspnea, Edema, Lt Headedness, Other Focused Exam Lactate Level 08/23/19 05:57: Lactic Acid Level 1.61 Objective-Cardiology Exam Last Set of Vital Signs Vital Signs 08/25/19 08/25/19 08/25/19 08/25/19 04:36 06:00 07:00 07:48 Temp 37.0 Pulse 106 Resp 17 B/P (MAP) 135/74 (94) Pulse Ox 93 O2 Delivery High Flow N/C O2 Flow Rate 3.00 Capillary Refill : Less Than 3 Seconds I&O Intake and Output 08/25/19 00:00 Intake Total 2770.5 ml Output Total 3775 ml Balance -1004.5 ml Intake Oral 1000 ml IV Total 1770.5 ml Output Urine Total 3775 ml General: Alert, Oriented X3, Cooperative, No Acute Distress HEENT: Atraumatic, PERRLA Neck: Supple, No JVD, No Thyromegaly Lungs: Clear to Auscultation, Normal Air Movement Heart: Normal S1, Normal S2, No Murmurs, Other (Atrial fibrillation) Abdomen: Normal Bowel Sounds, Soft, No Tenderness, No Masses Extremities: No Clubbing, No Cyanosis, No Edema, Normal Pulses, No Tenderness/Swelling Skin: No Rashes, No Breakdown, No Significant Lesion Neuro: Normal Gait, Normal Speech, Strength at 5/5 X4 Ext, Sensation Intact, Cranial Nerves 3-12 NL Psych/Mental Status: Mental Status NL, Mood NL Results Lab Laboratory Tests 08/25/19 02:55 A/P-Cardiology Admission Diagnosis Subacute myocardial infarction Coronary artery disease Sinus node dysfunction Hypertension Assessment/Plan Subacute myocardial infarction, type II AL secondary to severe bradycardia. Coronary artery disease, cardiac catheterization showed mild coronary artery disease nonobstructive disease, medical therapy is recommended. Echocardiogram showed normal LV size and function with ejection fraction 45 percent. Continue to monitor Paroxysmal atrial fibrillation, complete heart block with escape junctional rhythm, episodes of bradycardia alternating with tachycardia, status post single-chamber pacemaker implantation, I will start beta blockers, start diuretics. The monitor. Congestive heart failure, acute left ventricular systolic dysfunction probably due to atrial fibrillation and bradycardia. Responded well to diuretics. Continue to monitor Urinary tract infection, improving on antibiotics Questionable pulmonary infiltrate on chest x-ray. Receiving Rocephin, managed by Dr. Barry Hypertension, has been on Norvasc, blood pressure was elevated after the pacemaker implant, started her on KRISTOPHER inhibitor and will continue monitoring. Orthostatic hypotension and dizziness probably due to bradycardia. Multiple skin lesion on the back with multiple moles Okay for discharge from cardiology standpoint need to be on Ceftin 500 mg twice a day for 5 days Clinical Quality Measures DVT/VTE Risk/Contraindication: Risk Factor Score Per Nursin RFS Level Per Nursing on Admit: 2=Moderate KRYSTAL LUX MD Aug 25, 2019 08:01
[2019-08-25] MEDS: meTOprolol TARTRATE 25 MG (LOPRESSOR) TABLET PO SCH ×2 (08:10→20:53)
[2019-08-25] MEDS: APIXABAN 5 MG (ELIQUIS) TABLET PO SCH ×2 (08:10→20:53)
[2019-08-25] MEDS: ASPIRIN E.C. 81 MG (ECOTRIN) TAB PO SCH (08:10)
[2019-08-25] MEDS: MICONAZOLE 2% POWDER (DESENEX AF) 90 GM TOP SCH ×2 (08:10→20:53)
--- NOTE | 2019-08-25 08:55 | Diagnostic Imaging Report ---
INDICATION: Chest pain bradycardia. COMPARISON: 08/24 FINDINGS: Mild prominence of the heart size and pulmonary vascularity unchanged. Bilateral mixed interstitial and airspace opacities unchanged. Bilateral effusions unchanged. Some consolidative changes in the left lower lobe obscuring the left diaphragm unchanged. Pacemaker device unchanged. IMPRESSION: No interval change. Dictated by: Dictated on workstation # [id number]
[2019-08-25] MEDS ORDERED: RT-ALBUTEROL/IPRATROPIUM 3 ML (DUONEB) VIAL INH SCH (09:00)
--- NOTE | 2019-08-25 09:40 | Physical Therapy Evaluation ---
PT Evaluation-General Medical Diagnosis Admission Date Aug 22, 2019 at 16:33 Medical Diagnosis: SOB Onset Date: Aug 22, 2019 Therapy Diagnosis Therapy Diagnosis: Debility Precautions Precautions/Isolations: Fall Prevention, Standard Precautions Referral Physician: Asha Reason for Referral: Evaluation/Treatment Medical History Pertinent Medical History: Arthritis, HTN Current History Patient presented to ER with SOB and chest pain. Patient received hearth with external pacemaker. Reviewed History: Yes Social History Home: Single Level Current Living Status: Alone Patient is currently living along but son and qxnekadt-sw-xou state that she will be moving in with them. Prior Prior Level of Function SCALE: Activities may be completed with or without assistive devices. 3-Ayswfwpjrp-mniblue completes the activity by him/herself with no assistance from a helper. 5-Set-up or Clean-up Assistance-helper sets up or cleans up; patient completes activity. [place] assists only prior to or following the activity. 4-Supervision or Touching Assistance-helper provides verbal cues and/or touching/steadying and/or contact guard assistance as patient completes activity. Assistance may be provided throughout the activity or intermittently. 3-Partial/Moderate Assistance-helper does LESS THAN HALF the effort. [place] lifts, holds or supports trunk or limbs, but provides less than half the effort. 2-Substantial/Maximal Assistance-helper does MORE THAN HALF the effort. [place] lifts or holds trunk or limbs and provides more than half the effort. 8-Jlniniufm-xddsto does ALL the effort. Patient does none of the effort to complete the activity. Or, the assistance of 2 or more helpers is required for the patient to complete the activity. If activity was not attempted, code reason: 7-Patient Refused. 9-Not Applicable-not attempted and the patient did not perform the activity before the current illness, exacerbation or injury. 10-Not Attempted due to Environmental Limitations-(lack of equipment, weather restraints, etc.). 88-Not Attempted due to Medical Conditions or Safety Concerns. Bed Mobility: 6 Transfers (B,C,W/C): 6 Gait: 6 Indoor Mobility (Ambulation): Independent Prior Device Use: Cane PT Evaluation-Current Subjective Patient agreeable to therapy at this time. Objective Patient Orientation: Confused Attachments: Oxygen, Laurent Catheter ROM/Strength ROM Lower Extremities WFL BLE Strength Lower Extremities 3/5 grossly BLE Integumentary/Posture Integumentary See nursing notes. Bowel Incontinence: No Bladder Incontinence: Laurent Cath Posture trunk flexed posture Neuromuscular (Tone, Coordination, Reflexes) diminished coordination due to age and arthritis/debility Sensory Vision: Functional Hearing: Impaired Sensation Right Lower Extremit: Intact Sensation Left Lower Extremity: Intact Transfers Roll Left to Right (QC): 3 Sit to Lying (QC): 2 Lying to Sitting/Side of Bed(Q: 2 Sit to Stand (QC): 3 Chair/Lgh-es-Nhkdk Xfer(QC): 4 During transfer patient failed to maintain NWB LUE until sling was put on. Gait Does the Patient Walk?: Yes Mode of Locomotion: Walk Anticipated Mode of Locomotion: Walk Walk 10 feet (QC): 3 Distance: 20' Gait Assistive Device: None Comments/Gait Description Patient is extremely unsteady during ambulation, swaying side to side with each step. Wheelchair Training Does the Pt Use a Wheelchair?: No Balance Sitting Static: Good Sitting Dynamic: Good Standing Static: Fair Standing Dynamic: Fair Assessment/Needs Patient is extremely unsteady during ambulation as she sways side to side with each step. Patient O2 was around 90% prior to ambulation and after sitting down in recliner patient O2 recovered to 93% and O2 was placed back on patient. Rehab Potential: Fair PT Group Home Goals Railroad Car Cleaner Goals PT Railroad Car Cleaner Goals Time Frame: Sep 01, 2019 Roll Left & Right (QC): 6 Sit to Lying (QC): 6 Lying-Sitting on Side/Bed(QC): 6 Sit to Stand (QC): 6 Chair/Ilg-go-Wngwn Xfer(QC): 6 Does the Patient Walk: Yes Walk 10 feet (QC): 4 Walk 50ft with 2 Turns (QC): 4 Walk 150 ft (QC): 4 PT Plan Problem List Problem List: Activity Tolerance, Functional Strength, Safety, Balance, Gait, Transfer, Bed Mobility Treatment/Plan Treatment Plan: Continue Plan of Care Treatment Plan: Bed Mobility, Education, Functional Activity [place], Functional Strength, Gait, Safety, Therapeutic Exercise, Transfers Treatment Duration: Sep 01, 2019 Frequency: 6 times per week Estimated Hrs Per Day: .25 hour per day Patient and/or Family Agrees t: Yes Safety Risks/Education Patient Education: Gait Training, Transfer Techniques Teaching Recipient: Patient Teaching Methods: Demonstration, Discussion Response to Teaching: Reinforcement Needed Discharge Recommendations Therapy Discharge Recommendati: Other, See Comments (home health or [facility] for safety) Time/GCodes Time In: 855 Time Out: 910 Total Billed Treatment Time: 15 Total Billed Treatment 1 visit EVM 15 MARINA PLASENCIA PT Aug 25, 2019 09:40
--- NOTE | 2019-08-25 12:42 | NUR ---
DISCHARGE PLANNING: This RN has been assisting SW in discharge planning. I have spoken with them and done some research into the [place] SNF's. After presenting them with choices they would like to try [facility]. I have sent a referral and will await their determination. Patient will need to be transported by SNF and I have ordered an O2 study to determine if O2 will be needed
--- NOTE | 2019-08-25 12:53 | Occupational Therapy Eval ---
OT Evaluation-General/PLF Medical Diagnosis Admission Date Aug 22, 2019 at 16:33 Medical Diagnosis: SOB Onset Date: Aug 22, 2019 Therapy Diagnosis Therapy Diagnosis: decreased self care skills Precautions Precautions/Isolations: Fall Prevention, Standard Precautions, Pressure Ulcer Safety Interventions: Bed Exit Alarm, Reorient-Attempt, Reorient-PRN Comments Pacemaker Referral Physician: Asha Medical History Pertinent Medical History: Arthritis, HTN Current History Pt presented to hospital with SOB and chest pain. S/p pacemaker placement on 08/24 Social History Home: Single Level Current Living Status: Alone ADL-Prior Level of Function SCALE: Activities may be completed with or without assistive devices. 5-Frkuevxsxr-avjemuc completes the activity by him/herself with no assistance from a helper. 5-Set-up or Clean-up Assistance-helper sets up or cleans up; patient completes activity. [place] assists only prior to or following the activity. 4-Supervision or Touching Assistance-helper provides verbal cues and/or touching/steadying and/or contact guard assistance as patient completes activity. Assistance may be provided throughout the activity or intermittently. 3-Partial/Moderate Assistance-helper does LESS THAN HALF the effort. [place] lifts, holds or supports trunk or limbs, but provides less than half the effort. 2-Substantial/Maximal Assistance-helper does MORE THAN HALF the effort. [place] lifts or holds trunk or limbs and provides more than half the effort. 3-Ioqtfxwda-cierck does ALL the effort. Patient does none of the effort to complete the activity. Or, the assistance of 2 or more helpers is required for the patient to complete the activity. If activity was not attempted, code reason: 7-Patient Refused. 9-Not Applicable-not attempted and the patient did not perform the activity before the current illness, exacerbation or injury. 10-Not Attempted due to Environmental Limitations-(lack of equipment, weather restraints, etc.). 88-Not Attempted due to Medical Conditions or Safety Concerns. ADL PLOF Comments Pt and family state pt was independent with basic self care prior to admission. Has a cane for mobility. Family assisted with shopping. Pt was living alone, but family states she will be staying with them at d/c. OT Current Status Subjective RN reports pt okay for bed level activity, but requests no OOB activity at this time. Pt agrees to therapy. States she is not having any pain. Mental Status/Objective Patient Orientation: Person Attachments: Laurent Catheter, IV, Oxygen Current Glasses/Contacts: Yes Hearing Aids: No Dentures/Partials: No Hand Dominance: Right Upper Extremity ROM Right UE grossly functional Left UE in sling and not assessed secondary to pacemaker placement. Upper Extremity Coordination Right UE fair. Left UE not assessed secondary to pacemaker placement. ADL-Treatment ADL-Current Pt participated in evaluation at bed level per RN request. Pt washed face with SBA using right UE. Education provided regarding role of OT and plan of care. Pt and family state understanding of education and are in agreement with plan. Pt resting in bed with needs met, family present, and bed alarm on after session. Education OT Patient Education: Rehab process Teaching Recipient: Patient Teaching Methods: Discussion Response to Teaching: Reinforcement Needed OT Cytology Laboratory Manager Goals Cytology Laboratory Manager Goals Time Frame: Sep 08, 2019 Oral Hygiene (QC): 6 Toileting Hygiene (QC): 4 Shower/Bathe Self (QC): 4 Upper Body Dressing (QC): 4 Lower Body Dressing (QC): 4 Additional Goals: 1-Demonstrate ADL Tasks, 2-Verbalize Understanding, 3- ImproveStrength/[place] 1=Demonstrate adherence to instructed precautions during ADL tasks. 2=Patient will verbalize/demonstrate understanding of assistive devices/modifications for ADL. 3=Patient will improve strength/tolerance for activity to enable patient to perform ADL's. OT Education/Plan Problem List/Assessment Assessment: Decreased Activ Tolerance, Decreased UE Strength, Dependent Transfers, Impaired Funct Balance, Impaired I ADL's, Impaired Self-Care Skills Pt s/p pacemaker placement. Pt demonstrates decreased ADL functioning, strength, activity tolerance and mobility. Pt to benefit from skilled OT intervention for ADL training, transfers, strengthening, and safety education to increase level of independence and allow safe discharge plan. Discharge Recommendations Plan/Recommendations: Continue POC Treatment Plan/Plan of Care Patient would benefit from OT for education, treatment and training to promote independence in ADL's, mobility, safety and/or upper extremity function for ADL's. Plan of Care: ADL Retraining, Functional Mobility, UE Funct Exercise/Act Treatment Duration: Sep 08, 2019 Frequency: 5 times per week Estimated Hrs Per Day: .25 hour per day Rehab Potential: Fair Time/GCodes Start Time: 10:22 Stop Time: 10:38 Total Time Billed (hr/min): 16 Billed Treatment Time 1 visit, EV(16minutes) LEONORA MOSS OT Aug 25, 2019 12:53
[2019-08-25] MEDS ORDERED: CEFDINIR 300 MG (OMNICEF) CAP PO NR (13:15)
--- NOTE | 2019-08-25 13:53 | NUR ---
SPO2 DROPPED TO 85% ON ROOM AIR @ REST. REPLACED O2 @ 2 LPM. SPO2 INCREASED TO 95%. Addendum: 08/25/19 at 1759 by DAVIDSON GARCIA RT Amended: Links added.
--- NOTE | 2019-08-25 16:09 | NUR ---
CM/SS visited patient for discharge planning. The patient did not have any family present in the room at the time of first visit. The patient stated that she thought they would be visiting today and she did not remember any family members phone number. CM/SS spoke with the patients nurse who provided this SS with the phone numbers of her two sons: Demetrius ([phone]) and Kentrell ([phone]). This CM/SS made contact with Kentrell who stated they were heading to the hospital. CM/SS met with the son and zyvnyoez-fl-poa (Buck). The initial plan was for the patient to move in with the son and [id number]; however, Buck stated that until she recovers and becomes stronger she does not think they can meet her needs at home. They verbalized that they would like this SS to help set up retirement home placement in [place] due to them living in [place]. It is planned for the patient to live with Kentrell and buck once able too. LITO Watson assisted this SS with sending a referral to shelter and awaiting approval.
--- NOTE | 2019-08-25 16:20 | NUR ---
Report received from LITO Charles. I agree with previous RN's assessment, care assumed at this time.
--- NOTE | 2019-08-25 20:50 | Progress Note ---
Subjective Subjective/Events-last exam Patient feeling much better this AM. Tolerated procedure well. Tolerating PO diet and ambulation but requires increased help and has unstable gait. Review of Systems Pulmonary: Dyspnea; No Cough Cardiovascular: No: Chest Pain, Palpitations, Edema Gastrointestinal: No: Nausea, Vomiting, Abdominal Pain, Diarrhea, Constipation Neurological: Weakness, Incoordination Focused Exam Lactate Level 08/23/19 05:57: Lactic Acid Level 1.61 Objective Exam Last Set of Vital Signs Vital Signs Date Time Temp Pulse Resp B/P (MAP) Pulse Ox O2 Delivery O2 Flow Rate FiO2 08/25/19 20:00 36.8 91 18 138/68 (91) 95 High Flow N/C 2.00 Capillary Refill : Less Than 3 Seconds I&O Intake and Output 08/25/19 00:00 Intake Total 2770.5 ml Output Total 3775 ml Balance -1004.5 ml Intake Oral 1000 ml IV Total 1770.5 ml Output Urine Total 3775 ml General: Alert, Oriented X3, Cooperative, No Acute Distress Lungs: Clear to Auscultation, Normal Air Movement Heart: Regular Rate, No Murmurs Abdomen: Normal Bowel Sounds, Soft, No Tenderness, No Masses Extremities: No Edema, No Tenderness/Swelling Skin: No Rashes, No Breakdown Neuro: Sensation Intact, Cranial Nerves 3-12 NL Results/Procedures Lab Laboratory Tests 08/25/19 02:55: White Blood Count 14.5H, Red Blood Count 4.07L, Hemoglobin 12.2, Hematocrit 38, Mean Corpuscular Volume 93, Mean Corpuscular Hemoglobin 30, Mean Corpuscular Hemoglobin Concent 32, Red Cell Distribution Width 14.8H, Platelet Count 245, Mean Platelet Volume 11.4H, Neutrophils (%) (Auto) 66, Lymphocytes (%) (Auto) 19, Monocytes (%) (Auto) 13H, Eosinophils (%) (Auto) 2, Basophils (%) (Auto) 0, Neutrophils # (Auto) 9.6H, Lymphocytes # (Auto) 2.8, Monocytes # (Auto) 1.9H, Eosinophils # (Auto) 0.3, Basophils # (Auto) 0.0, Sodium Level 135, Potassium Level 4.0, Chloride Level 103, Carbon Dioxide Level 21, Anion Gap 11, Blood Urea Nitrogen 24H, Creatinine 1.14, Estimat Glomerular Filtration Rate 45, BUN/Creatinine Ratio 21, Glucose Level 104, Calcium Level 8.2L, Corrected Calcium 8.8, Phosphorus Level 3.5, Magnesium Level 1.6, Total Bilirubin 0.3, Aspartate Amino Transf (AST/SGOT) 36H, Alanine Aminotransferase (ALT/SGPT) 17, Alkaline Phosphatase 93, B-Type Natriuretic Peptide 446.3H, Total Protein 5.9L, Albumin 3.2 Microbiology 08/24/19 Blood Culture - Preliminary, Resulted No growth 08/22/19 MRSA Screen - Final, Complete MRSA not isolated 08/22/19 Urine Culture - Final, Complete Enterobacter cloacae complex Assessment/Plan Assessment/Plan (1) NSTEMI (non-ST elevated myocardial infarction) Status: Acute Assessment & Plan: - Likely demand ischemia 08/09 bradycardia, Cardiology consulted and managing (2) CHF (congestive heart failure) Status: Acute Qualifiers: Qualified Codes: I50.9 - Heart failure, unspecified (3) Atrial fibrillation Status: Acute Assessment & Plan: 08/25: Rate controlled Qualifiers: Qualified Codes: I48.91 - Unspecified atrial fibrillation (4) Bradycardia Status: Acute Assessment & Plan: 08/25: Patient feels much better with pacer (5) Physical debility Status: Acute Assessment & Plan: 08/25: SW working on SNF placement vs HH with PT, Patient lives home alone and is requiring increased assistance in ADLs Clinical Quality Measures DVT/VTE Risk/Contraindication: Risk Factor Score Per Nursin RFS Level Per Nursing on Admit: 2=Moderate LORA SMITH MD Aug 25, 2019 20:50
[2019-08-25] MEDS: CEFDINIR 300 MG (OMNICEF) CAP PO SCH (20:53)
[2019-08-26] VITALS: BP 153/75
[2019-08-26 04:00] VITALS: BP 156/78
[2019-08-26 05:48] LABS: BASOPHILS % (AUTO) 0 % (0-10); EOSINOPHILS # (AUTO) 0.6 10^3/uL (0.0-0.3); EOSINOPHILS % (AUTO) 4 % (0-10); HEMATOCRIT 38 % (35-52); HEMOGLOBIN 12.4 G/DL (11.5-16.0); LYMPHOCYTES # (AUTO) 2.6 X 10^3 (1.0-4.0); LYMPHOCYTES % (AUTO) 19 % (12-44); MEAN CORPUSCULAR HEMOGLOBIN 30 PG (25-34); MEAN CORPUSCULAR HGB CONC 32 G/DL (32-36); MEAN CORPUSCULAR VOLUME 92 FL (80-99); MEAN PLATELET VOLUME 10.9 FL (7.4-10.4); MONOCYTES # (AUTO) 1.8 X 10^3 (0.0-1.0); MONOCYTES % (AUTO) 13 % (0-12); NEUTROPHILS # (AUTO) 8.7 X 10^3 (1.8-7.8); NEUTROPHILS % (AUTO) 64 % (42-75); PLATELET COUNT 245 10^3/uL (130-400); RED CELL DISTRIBUTION WIDTH 14.3 % (10.0-14.5); WHITE BLOOD COUNT 13.6 10^3/uL (4.3-11.0)
[2019-08-26 06:15] LABS: CALCIUM 8.4 MG/DL (8.5-10.1); CREATININE SERUM 0.96 MG/DL (0.60-1.30); MAGNESIUM 1.9 MG/DL (1.6-2.4); PHOSPHORUS 3.8 MG/DL (2.3-4.7); POTASSIUM 3.4 MMOL/L (3.6-5.0)
[2019-08-26] MEDS: MAGNESIUM 1 GM/100 ML IVPB 100 ML IV SCH (06:32)
[2019-08-26] MEDS: POTASSIUM CL 10MEQ/50ML IVPB 50 ML IV SCH (06:33)
[2019-08-26] MEDS ORDERED: KCL 20 MEQ TAB (K-DUR) PO NR (06:45)
[2019-08-26] MEDS: FUROSEMIDE 40 MG/4 ML INJ (LASIX) IVP SCH (06:46)
[2019-08-26] MEDS: KCL 20 MEQ TAB (K-DUR) PO SCH (06:48)
[2019-08-26] MEDS: RT-ALBUTEROL/IPRATROPIUM 3 ML (DUONEB) VIAL INH SCH ×2 (07:27→10:49)
--- NOTE | 2019-08-26 07:34 | Pulmonary Progress Note ---
Subjective Time Seen by a Provider: 07:28 Sepsis Event Evaluation Height, Weight, BMI Height: '" Weight: lbs. oz. kg; 31.00 BMI Method: Exam Exam Vital Signs Date Time Temp Pulse Resp B/P (MAP) Pulse Ox O2 Delivery O2 Flow Rate FiO2 08/26/19 04:00 36.5 65 16 156/78 (104) 97 High Flow N/C 2.00 08/26/19 01:04 70 08/26/19 00:00 36.8 81 16 153/75 (101) 98 High Flow N/C 2.00 08/25/19 20:00 36.8 91 18 138/68 (91) 95 High Flow N/C 2.00 08/25/19 19:50 High Flow N/C 2.00 08/25/19 19:32 94 Nasal Cannula 2.00 08/25/19 19:00 90 08/25/19 16:57 37.0 87 20 131/63 (85) 93 High Flow N/C 2.00 08/25/19 15:40 High Flow N/C 4.00 08/25/19 15:30 37.9 08/25/19 14:43 High Flow N/C 2.00 08/25/19 14:35 94 Nasal Cannula 4.00 08/25/19 13:53 96 3.00 08/25/19 13:30 Room Air 08/25/19 12:50 92 08/25/19 12:00 High Flow N/C 4.00 08/25/19 12:00 73 17 127/104 (112) 95 High Flow N/C 2.00 08/25/19 11:45 37.2 08/25/19 11:30 93 Nasal Cannula 3.00 08/25/19 09:00 92 28 92 High Flow N/C 2.00 08/25/19 08:00 High Flow N/C 4.00 08/25/19 08:00 93 127/73 (91) 94 High Flow N/C 2.00 08/25/19 07:48 93 High Flow N/C 3.00 I & O 08/26/19 07:00 Intake Total 1185 ml Output Total 2375 ml Balance -1190 ml Height & Weight Height: '" Weight: lbs. oz. kg; 31.00 BMI Method: General Appearance: WD/WN, Anxious, Mild Distress Neck: Normal Inspection, Non Tender, Limited Range of Motion Respiratory: Normal Breath Sounds, No Accessory Muscle Use, No Respiratory Distress, Decreased Breath Sounds Cardiovascular: Irregularly Irregular Capillary Refill: Less Than 3 Seconds Extremity: Non Tender, No Calf Tenderness, No Pedal Edema, Other (Arthritis changes of her hands) Neurologic/Psychiatric: Alert, Oriented x3, No Motor/Sensory Deficits, Normal Mood/Affect Skin: Normal Color, Warm/Dry Results Lab Laboratory Tests 08/25/19 02:55 08/26/19 05:20 08/26/19 05:25 Assessment/Plan Assessment/Plan Acute respiratory failure -- -IS BiPAP 15/5 PRN Bradycardia with NSTEMI -Cardiology is following -S/p cath and perm pacemaker CHF with EF of 45% AFib -Cardiology following Pneumonia -Continue Abx -Pt will need repeat CXR 8wks after discharge -currently on Omnicef Metabolic acidosis -- improving - monitor Weakness frequent falls -may need ECF -PT/OT PAUL FUNK DO Aug 26, 2019 07:34
[2019-08-26 07:35] VITALS: BP 176/80
--- NOTE | 2019-08-26 08:28 | NUR ---
Discharge Plan: Patient has been accepted to new SKILLED placement at [facility] in [place]. Patient will need to be without Laurent and IV medications. Family will need to transport with assist provided by staff here and then again upon arrival for getting in and out of the car.
[2019-08-26] MEDS: ASPIRIN E.C. 81 MG (ECOTRIN) TAB PO SCH (08:59)
[2019-08-26] MEDS: meTOprolol TARTRATE 25 MG (LOPRESSOR) TABLET PO SCH (08:59)
[2019-08-26] MEDS: CEFDINIR 300 MG (OMNICEF) CAP PO SCH (08:59)
[2019-08-26] MEDS: APIXABAN 5 MG (ELIQUIS) TABLET PO SCH (08:59)
[2019-08-26] MEDS: MICONAZOLE 2% POWDER (DESENEX AF) 90 GM TOP SCH (09:00)
[2019-08-26] MEDS ORDERED: METO-333 PO (10:13)
[2019-08-26] MEDS ORDERED: IPRA3AMP31 INH (10:13)
[2019-08-26] MEDS ORDERED: ASPI-983 PO (10:13)
[2019-08-26] MEDS ORDERED: APIX5TAB PO (10:13)
[2019-08-26] MEDS ORDERED: CEFD300C3 PO (10:13)
[2019-08-26] MEDS ORDERED: HYDR-4226 PO (10:13)
--- NOTE | 2019-08-26 10:24 | Discharge Summary ---
Discharge Summary Reconcile Patient Problems Problems Reviewed?: Yes Hospital Course Hospital Course Date of Admission: Aug 22, 2019 at 16:33 Admission Diagnosis : Family Physician/Provider: Nolan Hunter MD Date of Discharge: 08/26/19 Discharge Diagnosis: NSTEMI Atrial Fibrillation with Bradycardia Bradycardia Diastolic CHF Pacemaker placement Hospital Course: 89 yo F presented with shortness of breath and extreme fatigue, found to have heart rate in the 30s. She was seen by cardiology and she had a pacemaker placed and has been feeling much better. Started on Eliquis for atrial fibrillation. She is weak and unsteady and would benefit from SNF for PT. Labs and Pending Lab Test: Laboratory Tests 08/26/19 05:20: Sodium Level 137, Potassium Level 3.4L, Chloride Level 101, Carbon Dioxide Level 24, Anion Gap 12, Blood Urea Nitrogen 25H, Creatinine 0.96, Estimat Glomerular Filtration Rate 55, BUN/Creatinine Ratio 26, Glucose Level 100, Calcium Level 8.4L, Phosphorus Level 3.8, Magnesium Level 1.9 08/26/19 05:25: White Blood Count 13.6H, Red Blood Count 4.17L, Hemoglobin 12.4, Hematocrit 38, Mean Corpuscular Volume 92, Mean Corpuscular Hemoglobin 30, Mean Corpuscular Hemoglobin Concent 32, Red Cell Distribution Width 14.3, Platelet Count 245, Mean Platelet Volume 10.9H, Neutrophils (%) (Auto) 64, Lymphocytes (%) (Auto) 19, Monocytes (%) (Auto) 13H, Eosinophils (%) (Auto) 4, Basophils (%) (Auto) 0, Neutrophils # (Auto) 8.7H, Lymphocytes # (Auto) 2.6, Monocytes # (Auto) 1.8H, Eosinophils # (Auto) 0.6H, Basophils # (Auto) 0.0 Microbiology 08/24/19 Blood Culture - Preliminary, Resulted No growth 08/22/19 MRSA Screen - Final, Complete MRSA not isolated 08/22/19 Urine Culture - Final, Complete Enterobacter cloacae complex Home Meds Active Reported Claritin (Loratadine) 10 Mg Tablet 10 Mg PO DAILY PRN Skilled NF Admit to: Certification (SNF) I certify that SNF services are required to be given on an inpatient basis because of the above named patient's need for half-way care on a continuing basis for the conditions(s) for which he/she was receiving inpatient hospital services prior to his/her transfer to the SNF. Group Home Facility Order: Nursing Services, Zookeeper-Evaluate & Treat, Physical Therapy-Evaluate & Treat, Speech Language-Evaluate & Treat Oxygen Delivery Method: Nasal Cannula (2 LPM continous ) Discharge Diet: No Restrictions Daily Activity as Tolerated: Yes New & Resume Previous Orders - 2 LPM NC continuously - Updated med list sent - Needs f.u with Dr Trinh s/p pacemaker placement Lora Gonzalez Aug 26, 2019 10:13 Pneu Vac Indicated: Yes Discharge Physical Exam General: Alert, Oriented X3, Cooperative, No Acute Distress HEENT: Mucous Memb Moist/[place] Lungs: Clear to Auscultation, Normal Air Movement Heart: Regular Rate, No Murmurs Abdomen: Normal Bowel Sounds, Soft, No Tenderness, No Masses Extremities: Other (1+ pitting edema bilaterally) Neuro: Normal Speech, Sensation Intact Psych/Mental Status: Mental Status NL, Mood NL LORA GONZALEZ MD Aug 26, 2019 10:22
[2019-08-26] MEDS ORDERED: FURO-125 PO (10:51)
--- NOTE | 2019-08-26 10:53 | Cardiology Progress Note ---
Subjective Date Seen by Provider: Aug 26, 2019 Time Seen by Provider: 10:52 Subjective/Events-last exam Patient sitting up in bed, no new complaints. Denies any chest pain or dyspnea. Objective-Cardiology Exam Last Set of Vital Signs Vital Signs 08/26/19 08/26/19 08/26/19 07:35 08:30 10:24 Temp 36.6 Pulse 78 Resp 18 B/P (MAP) 176/80 (112) Pulse Ox 96 O2 Delivery Nasal Cannula O2 Flow Rate 2.00 Capillary Refill : Less Than 3 Seconds I&O Intake and Output 08/26/19 00:00 Intake Total 1435 ml Output Total 2800 ml Balance -1365 ml Intake Oral 1335 ml IV Total 100 ml Output Urine Total 2800 ml # Voids 5 General: Alert, Oriented X3, Cooperative, No Acute Distress HEENT: Mucous Memb Moist/[place] Neck: Supple, No JVD, No Thyromegaly Lungs: Clear to Auscultation, Normal Air Movement Heart: Regular Rate, No Murmurs Abdomen: Normal Bowel Sounds, Soft, No Tenderness, No Masses Extremities: Other (1+ pitting edema bilaterally) Skin: No Rashes, No Breakdown Neuro: Normal Speech, Sensation Intact Psych/Mental Status: Mental Status NL, Mood NL Results Lab Laboratory Tests 08/26/19 05:20 08/26/19 05:25 A/P-Cardiology Admission Diagnosis Subacute myocardial infarction Coronary artery disease Sinus node dysfunction Hypertension Assessment/Plan Subacute myocardial infarction, type II TN secondary to severe bradycardia. Coronary artery disease, cardiac catheterization showed mild coronary artery disease nonobstructive disease, medical therapy is recommended. Echocardiogram showed normal LV size and function with ejection fraction 45 percent. 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 The monitor. Congestive heart failure, acute left ventricular systolic dysfunction probably due to atrial fibrillation and bradycardia. Responded well to diuretics. Continue to monitor Urinary tract infection, improving on antibiotics Questionable pulmonary infiltrate on chest x-ray. Receiving Rocephin, managed b nery Barry Hypertension, mildly elevated, continue to monitor. Orthostatic hypotension and dizziness probably due to bradycardia. Multiple skin lesion on the back with multiple moles Okay for discharge from cardiology standpoint need to be on Ceftin 500 mg twice a day for 5 days Clinical Quality Measures DVT/VTE Risk/Contraindication: Risk Factor Score Per Nursin RFS Level Per Nursing on Admit: 2=Moderate JENNY LINN Aug 26, 2019 10:53
--- NOTE | 2019-08-26 11:29 | NUR ---
FINAL DISCHARGE: Patient will be discharged today to a new SKILLED placement at [facility] in [place], [place]. It is expected for her to get stronger and then ultimately move in with her son and DIL who live in [place], [place]. Her family will transport her using our portable oxygen. The facility will then take our portable tank to Dr. Patel' office for her to transport back to [facility] on her next clinical day.
--- NOTE | 2019-08-26 11:30 | NUR ---
THIS RN CALLED REPORT TO [facility], [place], [place]. GAVE REPORT TO LITO WHITFIELD.
--- NOTE | 2019-08-26 11:32 | Physical Therapy Daily Note ---
PT Daily Note-Current Subjective Patient is agreeable to therapy at this time. Patient reports no pain at this time. Patient states she is discharging from this facility later today. Pain Numeric Pain Scale: 0-No Pain Appearance Patient BTB post tx with nurse call, phone, tray, family in the room. Mental Status Patient Orientation: Normal For Age Attachments: Oxygen (2L) Transfers SCALE: Activities may be completed with or without assistive devices. 2-Lkhrgqxgrx-bxjbztr completes the activity by him/herself with no assistance from a helper. 5-Set-up or Clean-up Assistance-helper sets up or cleans up; patient completes activity. [place] assists only prior to or following the activity. 4-Supervision or Touching Assistance-helper provides verbal cues and/or touching/steadying and/or contact guard assistance as patient completes activity. Assistance may be provided throughout the activity or intermittently. 3-Partial/Moderate Assistance-helper does LESS THAN HALF the effort. [place] lifts, holds or supports trunk or limbs, but provides less than half the effort. 2-Substantial/Maximal Assistance-helper does MORE THAN HALF the effort. [place] lifts or holds trunk or limbs and provides more than half the effort. 8-Lyjjutjce-hbjczo does ALL the effort. Patient does none of the effort to complete the activity. Or, the assistance of 2 or more helpers is required for the patient to complete the activity. If activity was not attempted, code reason: 7-Patient Refused. 9-Not Applicable-not attempted and the patient did not perform the activity before the current illness, exacerbation or injury. 10-Not Attempted due to Environmental Limitations-(lack of equipment, weather restraints, etc.). 88-Not Attempted due to Medical Conditions or Safety Concerns. Roll Left & Right (QC): 3 Sit to Lying (QC): 3 Lying to Sitting/Side of Bed(Q: 3 Sit to Stand (QC): 3 Gait Training Does the Patient Walk?: Yes Distance: 30' Walk 10 feet (QC): 3 Gait Assistive Device: Cane Single Point Patient is unsteady during ambulation swaying side to side with each step. Patient walks with cane way in front of her and needs cues to keep it closer to her. Wheelchair Training Does the Pt Use a Wheelchair?: No Exercises Seated Therapy Exercises: Ankle pumps (10BLE), Long arc quads (10BLE), Hip flexion (10BLE) Treatments BLE exercises, bed mobility, ambulation. Assessment Current Status: Poor Progress Patient is unsteady during ambulation swaying side to side with each step. Patient needs directing on cane placement. Patient needs balance support by ther apist to perform seated exercises while sitting on the side of the bed. PT Comfort Station Supervisor Goals Mcc Goals PT Mcc Goals Time Frame: Sep 01, 2019 Roll Left & Right (QC): 6 Sit to Lying (QC): 6 Lying-Sitting on Side/Bed(QC): 6 Sit to Stand (QC): 6 Chair/Lnt-dl-Flbbu Xfer(QC): 6 Does the Patient Walk: Yes Walk 10 feet (QC): 4 Walk 50ft with 2 Turns (QC): 4 Walk 150 ft (QC): 4 PT Plan Problem List Problem List: Activity Tolerance, Functional Strength, Safety, Balance, Gait, Transfer, Bed Mobility, ROM Treatment/Plan Treatment Plan: Continue Plan of Care Treatment Plan: Bed Mobility, Education, Functional Activity [place], Functional Strength, Gait, Safety, Therapeutic Exercise, Transfers Treatment Duration: Sep 01, 2019 Frequency: 6 times per week Estimated Hrs Per Day: .25 hour per day Patient and/or Family Agrees t: Yes Safety Risks/Education Patient Education: Gait Training, Transfer Techniques Teaching Recipient: Patient, Family Teaching Methods: Discussion Response to Teaching: Reinforcement Needed Time/GCodes Time In: 1106 Time Out: 1117 Total Billed Treatment Time: 11 Total Billed Treatment 1 visit GT 11 OPHELIA GRAHAM PT Aug 26, 2019 11:32
[2019-08-26 11:50] VITALS: BP 162/73
[2019-08-26 13:00] VITALS: BP 162/73
== END 2019-08-26 13:00 | DRG 242 ==
LOC: ER FS 14:28 → ICU 16:33 → 4TH 08-25 16:04
PROVIDERS: ADMIT Internal Medicine; ATTEND Internal Medicine
PROC: 4A023N7 Measurement of Cardiac Sampling and Pressure, Left Heart, Percutaneous Approach (ICD-10-PCS; 2019-08-22)
PROC: B2111ZZ Fluoroscopy of Multiple Coronary Arteries using Low Osmolar Contrast (ICD-10-PCS; 2019-08-22)
PROC: 5A1223Z Performance of Cardiac Pacing, Continuous (ICD-10-PCS; 2019-08-22)
PROC: 0JH605Z Insertion of Pacemaker, Single Chamber Rate Responsive into Chest Subcutaneous Tissue and Fascia, Open Approach (ICD-10-PCS; principal; 2019-08-24)
PROC: 02HK3JZ Insertion of Pacemaker Lead into Right Ventricle, Percutaneous Approach (ICD-10-PCS; 2019-08-24)
DX: I49.5 Sick sinus syndrome (principal); I44.2 Atrioventricular block, complete; I21.A1 Myocardial infarction type 2; J18.9 Pneumonia, unspecified organism; I25.10 Atherosclerotic heart disease of native coronary artery without angina pectoris; I16.1 Hypertensive emergency; I13.0 Hypertensive heart and chronic kidney disease with heart failure and stage 1 through stage 4 chronic kidney disease, or unspecified chronic kidney disease; N18.3 Chronic kidney disease, stage 3 (moderate); I50.21 Acute systolic (congestive) heart failure; E87.2 Acidosis; J90 Pleural effusion, not elsewhere classified; N39.0 Urinary tract infection, site not specified; I48.0 Paroxysmal atrial fibrillation; D72.829 Elevated white blood cell count, unspecified; I95.1 Orthostatic hypotension; R29.6 Repeated falls; J96.00 Acute respiratory failure, unspecified whether with hypoxia or hypercapnia
CPT/HCPCS: 33207; 33210; 36415; 71045; 80048; 80053; 81000; 82805; 83605; 83735; 83874; 83880; 84100; 84484; 85007; 85025; 85027; 85610; 85730; 87040; 87081; 87088; 87186; 93005; 93306; 93458; 94640; 94664; 94760; 94761; 96372; 99291; 99292

== ENCOUNTER → 2019-11-20 | Outpatient (CLI) | payer MEDICARE ==
[~2019-11-20] MED LIST: APIX5TAB PO; ASPI-983 PO; CEFD300C3 PO; FURO-125 PO; HYDR-4226 PO; IPRA3AMP31 INH; LORA10TA76 PO; METO-333 PO
[2019-11-20 12:15] LABS: CREATININE SERUM 1.16 MG/DL (0.60-1.30)
--- NOTE | 2019-11-20 15:20 | Diagnostic Imaging Report ---
CT CHEST WO TECHNIQUE: Multiple contiguous axial images were obtained through the chest without the use of intravenous contrast. All CT scans use one or more of the following dose optimizing techniques: automated exposure control, MA and/or KvP adjustment based on a patient size and exam type, or iterative reconstruction. INDICATION: Shortness of breath, pneumonia. COMPARISON: Chest radiograph of 08/25/2019. FINDINGS: Lungs and airway: No endoluminal nodule within the trachea. No pulmonary mass or consolidation. Mosaic attenuation within the upper lobes is likely due to physiologic air trapping. Additionally, there is respiratory motion artifact in the lung bases resulting in groundglass attenuation. No pulmonary fibrosis. Pleura: Small right and trace left pleural effusion. Heart and mediastinum: Thyroid is normal where seen. No supraclavicular or axillary lymphadenopathy. No mediastinal, discrete hilar or juxtaphrenic lymphadenopathy. Cardiomegaly is again noted. No pericardial effusion. Left pectoral transvenous pacemaker has lead terminating in the right ventricle. Dense mitral annulus calcifications. Distal esophagus is normal in appearance. Upper abdomen: Small liver with potential nodularity of the surface. Spleen has small numerous calcifications present. No adrenal mass. Musculoskeletal: Chronic superior endplate compression fracture of T11. No acute abnormality in the visualized osseous structures. IMPRESSION: 1. Cardiomegaly with small right and trace left pleural effusions. 2. No pulmonary edema. 3. No consolidations to indicate pneumonia. Dictated by: Dictated on workstation # [id number]
== END ==
LOC: RAD 11:38
PROVIDERS: ATTEND Nurse Practitioner Family
DX: I51.7 Cardiomegaly (principal); J90 Pleural effusion, not elsewhere classified; J18.8 Other pneumonia, unspecified organism
CPT/HCPCS: 36415; 71250; 82565; 84520

== ENCOUNTER 2019-11-24 12:08 | Emergency (ER) | payer MEDICARE, MEDICAID ==
[~2019-11-24] VITALS: Ht 152 cm; Wt 77.0 kg
[2019-11-24 13:12] LABS: BASOPHILS % (AUTO) 0 % (0-10); EOSINOPHILS # (AUTO) 0.3 10^3/uL (0.0-0.3); EOSINOPHILS % (AUTO) 2 % (0-10); HEMATOCRIT 43 % (35-52); HEMOGLOBIN 14.3 G/DL (11.5-16.0); LYMPHOCYTES # (AUTO) 2.2 X 10^3 (1.0-4.0); LYMPHOCYTES % (AUTO) 19 % (12-44); MEAN CORPUSCULAR HEMOGLOBIN 31 PG (25-34); MEAN CORPUSCULAR HGB CONC 33 G/DL (32-36); MEAN CORPUSCULAR VOLUME 93 FL (80-99); MONOCYTES # (AUTO) 1.5 X 10^3 (0.0-1.0); MONOCYTES % (AUTO) 13 % (0-12); NEUTROPHILS # (AUTO) 7.6 X 10^3 (1.8-7.8); NEUTROPHILS % (AUTO) 66 % (42-75); PLATELET COUNT 295 10^3/uL (130-400); RED CELL DISTRIBUTION WIDTH 15.1 % (10.0-14.5); WHITE BLOOD COUNT 11.5 10^3/uL (4.3-11.0)
--- NOTE | 2019-11-24 13:18 | ED Respiratory ---
General Chief Complaint: Respiratory Problems Stated Complaint: LEG SWELLING History of Present Illness Date Seen by Provider: November 24, 2019 Time Seen by Provider: 12:45 Initial Comments 89 year old female with history of CHF, COPD and pacemaker (placed Aug 2019), reports right leg swelling and SOA. The SOA is mainly at night and upon arising in the morning, then improves. She does not wear Oxygen or CPAP at home, she uses one ipratropium/albuterol breathing treatment per nebulizer in the morning, otherwise no breathing treatments or inhalers.. She has been staying with her son in [place], [place]. They deny any COVID exposure and have been staying home. She is on Xarelto, but takes ASA daily. CT of chest by Dr. Barry on 11/20/19, for follow up pneumonia. Timing/Duration: intermittent Prior Episodes/Possible Cause: occasional episodes Modifying Factors: Improves With Albuterol Nebulizer Associated Symptoms: cough (non productive, rare), shortness of breath (with exertion or talking, but SaO2 remains 94-97% on RA. ) Allergies and Home Medications Allergies Coded Allergies: No Known Drug Allergies (Unverified , 08/22/19) Home Medications Aspirin 81 Mg Tablet.dr, 81 MG PO DAILY Prescribed by: LORA SMITH on 08/26/19 1013 Furosemide 20 Mg Tablet, 20 MG PO DAILY Prescribed by: JENNY CHAUDHRY on 08/26/19 1051 Ipratropium/Albuterol Sulfate 3 Ml Ampul.neb, 3 ML INH RTQID Prescribed by: LORA SMITH on 08/26/19 1013 Loratadine 10 Mg Tablet, 10 MG PO DAILY PRN for ALLERGY SYMPTOMS, (Reported) Metoprolol Tartrate 25 Mg Tablet, 25 MG PO BID Prescribed by: LORA SMITH on 08/26/19 1013 Patient Home Medication List Home Medication List Reviewed: Yes Review of Systems Review of Systems Constitutional: no symptoms reported, see HPI Respiratory: see HPI, dyspnea on exertion; No phlegm; short of breath Cardiovascular: no symptoms reported, see HPI; No chest pain; edema (Bilat LE Right>Left); No palpitations All Other Systems Reviewed Negative Unless Noted: Yes Past Qsjwuvb-Jywjny-Gghshv Hx Past Med/Social Hx: Reviewed Nursing Past Med/Soc Hx Patient Social History Recent Foreign Travel: No Contact w/Someone Who Travel: No Recent Hopitalizations: No Seasonal Allergies Seasonal Allergies: No Past Medical History Surgeries: Yes Tonsillectomy Respiratory: No Cardiac: Yes Hypertension Neurological: No Genitourinary: Yes (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 oz. kg; 31.00 BMI Method: General Appearance: WD/WN, mild distress (SOA) HEENT: PERRL/EOMI, normal ENT inspection, TMs normal, pharynx normal Neck: non-tender, full range of motion, supple, normal inspection Respiratory: chest non-tender, no respiratory distress, no accessory muscle use, wheezing (expiratory) Cardiovascular: normal peripheral pulses, no murmur, irregularly irregular Gastrointestinal: normal bowel sounds, non tender Extremities: normal range of motion, non-tender, normal capillary refill, pedal edema (2+ left lower extremity, 3+ right lower extremity.) Neurologic/Psychiatric: no motor/sensory deficits, alert, normal mood/affect, oriented x 3 Skin: normal color, warm/dry Progress/Results/Core Measures Suspected Sepsis SIRS Temperature: Pulse: Respiratory Rate: Laboratory Tests 11/24/19 13:00: White Blood Count 11.5H Blood Pressure / Mean: Laboratory Tests 11/24/19 13:00: Creatinine 1.13, Platelet Count 295, Total Bilirubin 0.8 11/24/19 13:10: INR Comment 2.8H Results/Orders Lab Results Laboratory Tests Test 11/24/19 13:00 11/24/19 13:10 Range/Units White Blood Count 11.5 H 4.3-11.0 10^3/uL Red Blood Count 4.63 4.35-5.85 10^6/uL Hemoglobin 14.3 11.5-16.0 G/DL Hematocrit 43 35-52 % Mean Corpuscular Volume 93 80-99 FL Mean Corpuscular Hemoglobin 31 25-34 PG Mean Corpuscular Hemoglobin Concent 33 32-36 G/DL Red Cell Distribution Width 15.1 H 10.0-14.5 % Platelet Count 295 130-400 10^3/uL Mean Platelet Volume 10.0 7.4-10.4 FL Neutrophils (%) (Auto) 66 42-75 % Lymphocytes (%) (Auto) 19 12-44 % Monocytes (%) (Auto) 13 H 0-12 % Eosinophils (%) (Auto) 2 0-10 % Basophils (%) (Auto) 0 0-10 % Neutrophils # (Auto) 7.6 1.8-7.8 X 10^3 Lymphocytes # (Auto) 2.2 1.0-4.0 X 10^3 Monocytes # (Auto) 1.5 H 0.0-1.0 X 10^3 Eosinophils # (Auto) 0.3 0.0-0.3 10^3/uL Basophils # (Auto) 0.0 0.0-0.1 10^3/uL Sodium Level 137 135-145 MMOL/L Potassium Level 4.8 3.6-5.0 MMOL/L Chloride Level 105 98-107 MMOL/L Carbon Dioxide Level 20 L 21-32 MMOL/L Anion Gap 12 5-14 MMOL/L Blood Urea Nitrogen 21 H 7-18 MG/DL Creatinine 1.13 0.60-1.30 MG/DL Estimat Glomerular Filtration Rate 46 BUN/Creatinine Ratio 19 Glucose Level 91 70-105 MG/DL Calcium Level 9.1 8.5-10.1 MG/DL Corrected Calcium 9.1 8.5-10.1 MG/DL Total Bilirubin 0.8 0.1-1.0 MG/DL Aspartate Amino Transf (AST/SGOT) 43 H 5-34 U/L Alanine Aminotransferase (ALT/SGPT) 22 0-55 U/L Alkaline Phosphatase 100 40-136 U/L Troponin I < 0.028 <0.028 NG/ML B-Type Natriuretic Peptide 392.8 H <100.0 PG/ML Total Protein 7.7 6.4-8.2 GM/DL Albumin 4.0 3.2-4.5 GM/DL Prothrombin Time 30.7 H 12.2-14.7 SEC INR Comment 2.8 H 0.8-1.4 Activated Partial Thromboplast Time 58 H 24-35 SEC Lactate Dehydrogenase 369 H 125-220 U/L C-Reactive Protein High Sensitivity 0.27 0.00-0.50 MG/DL Procalcitonin 0.03 <0.10 NG/ML My Orders Orders - KEVAN BELL [employer] BNP (11/24/19 12:56) Cbc With Automated Diff (11/24/19 12:56) Comprehensive Metabolic Panel (11/24/19 12:56) Troponin I (11/24/19 12:56) Chest 1 View, Ap/Pa Only (11/24/19 12:56) Us Venous Lower Ext Rt (11/24/19 12:56) Protime With Inr (11/24/19 13:11) Partial Thromboplastin Time (11/24/19 13:11) Procalcitonin (Pct) (11/24/19 13:11) Hs C Reactive Protein (11/24/19 13:11) LDH (11/24/19 13:11) Ekg Tracing (11/24/19 13:30) Rx-Albuterol Inhaler (Rx-Proair) (11/24/19 13:40) Furosemide Injection (Lasix Injection) (11/24/19 14:45) Furosemide Injection (Lasix Injection) (11/24/19 15:15) Furosemide Injection (Lasix Injection) (11/24/19 15:30) Medications Given in ED Current Medications Medications Dose Ordered Sig/Bradly Route Start Time Stop Time Status Last Admin Dose Admin Furosemide 40 mg ONCE ONCE IVP 11/24/19 15:30 11/24/19 15:31 DC 11/24/19 15:27 40 MG Vital Signs/I&O 11/24/19 12:45 Temp 36.3 Pulse 69 Resp 34 B/P (MAP) 127/43 (71) Pulse Ox 96 O2 Delivery Room Air Capillary Refill : Progress Note : Time: 12:45 Progress Note Patient seen and evaluated, will obtain EKG, chest x-ray, ultrasound right lower extremity, and monitor patient. 1340 Will give Lasix 40 mg IV. 1400 ultrasound negative right lower extremity. Chest x-ray shows no acute findings. Patient given 2 puffs of pro-air. 1445 no further wheezing after given the pro-air [address] Trinh, agreed with plan to use Lasix and follow up with him, as needed. [address] Brary, agreed with plan to discharge and close follow up. 1545 patient has remained stable, has not required O2, SaO2 95-98% on RA. No SOA at rest. Discharge instructions and return precautions reviewed with the patient. This was also discussed with the patient and her brother and [id number] who is cyst with her caregiving. ECG Initial ECG Impression Date: November 24, 2019 Initial ECG Impression Time: 14:02 Initial ECG Rate: 77 Initial ECG Rhythm: A Fib/Flutter Initial ECG Intervals: Normal Initial ECG Intervals QRSD 125, QT 375, QTC 425. Ryde QRS 112, T -17. Initial ECG Impression: Atrial Fibrillation Initial ECG Comparisson: Unchanged Diagnostic Imaging Diagonstic Imaging: Xray Plain Films/CT/US/NM/MRI: chest Comments NAME: CLINT RAMON MED REC#: [id number] PT STATUS: REG ER : 1930 PHYSICIAN: KEVAN BELL ADMIT DATE: 11/24/19/ER Draft Date of Exam:11/24/19 CHEST 1 VIEW, AP/PA ONLY INDICATION: Shortness of breath for several days. TIME OF EXAM: 1:54 PM. COMPARISON: 08/25/2019. FINDINGS: The heart is enlarged but stable. 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 There are congestive changes noted bilaterally. There are some mild interstitial changes throughout both lungs. No significant effusion or pneumothorax is seen. IMPRESSION: Interstitial changes suggestive of congestive failure. Dictated on workstation # [id number] Dict: 11/24/19 1359 Trans: 11/24/19 1402 [id number] Interpreted by: ANNA RIVAS MD Electronically signed by: Reviewed: Reviewed by Me Diagonstic Imaging: Ultrasound Plain Films/CT/US/NM/MRI: leg (right lower extremity) Comments [facility], [place] NAME: CLINT RAMON R MED REC#: [id number] PT STATUS: REG ER : 1930 PHYSICIAN: KEVAN BELL ADMIT DATE: 11/24/19/ER Signed Date of Exam:11/24/19 US VENOUS LOWER EXT RT INDICATION: Right leg swelling. Right leg venous Doppler study was performed in the routine fashion with color flow Doppler and waveform analysis. FINDINGS: The right common femoral vein, superficial femoral vein, popliteal vein and visualized portion of the tibial veins show normal compressibility and venous flow patterns. There is normal augmentation. IMPRESSION: No evidence of deep vein thrombosis of the major veins of the right leg. Dictated by: Dictated on workstation # [id number] Dict: 11/24/19 1337 Trans: 11/24/19 1344 [id number] Interpreted by: ANGELINE HARLEY MD Electronically signed by: ANGELINE HARLEY MD 11/24/19 1344 Departure Impression Primary Impression: Heart failure Qualified Codes: I50.9 - Heart failure, unspecified Additional Impressions: Shortness of breath Edema of right lower extremity Disposition: HOME, SELF-CARE Condition: Improved Departure-Patient Inst. Decision time for Depature: 14:30 Referrals: SHIRA GUERRA APRN, PANKAJ K MD (PCP/Family) Primary Care Physician Patient Instructions: Dependent Edema (DC), Heart Failure, Adult (DC), Shortness of Breath (Dyspnea) (DC) Add. Discharge Instructions: You have appt with 11/26/[address] Ronquillo's office with Myah Toney APRN 11:20 am. You have an appt at Dr. Barry's office with Shira Monzon APRN at 10:40 on 12/03/[address] Trinh for follow-up as needed related to your pacemaker. Elevate your legs, higher than your heart, for swelling. Continue to drink water, 8 oz every 2 hours, while awake. Continue to use your nebulized breathing treatment in the morning, then use the ProAir inhaler every 6 hours, as needed for shortness of breath. Continue all your prescription medications. Increase your Lasix to 1 1/2 pills for 4 days, then resume 1 pill daily. Return to the Emergency Dept for worsening of the shortness of breath, fevers greater 101, chest pain, or new concerns. All discharge instructions reviewed with patient and/or family. Voiced understanding. Copy Copies To 1: PAUL BARRY AMY ARNP November 24, 2019 13:18
[2019-11-24 13:31] LABS: CHLORIDE 105 MMOL/L (98-107); POTASSIUM 4.8 MMOL/L (3.6-5.0); SODIUM 137 MMOL/L (135-145)
[2019-11-24 13:32] LABS: CALCIUM 9.1 MG/DL (8.5-10.1)
[2019-11-24 13:33] LABS: GLUCOSE 91 MG/DL (70-105); TOTAL PROTEIN 7.7 GM/DL (6.4-8.2)
[2019-11-24 13:34] LABS: CARBON DIOXIDE 20 MMOL/L (21-32)
[2019-11-24 13:35] LABS: BILIRUBIN,TOTAL 0.8 MG/DL (0.1-1.0)
[2019-11-24 13:36] LABS: ALKALINE PHOSPHATASE 100 U/L (40-136)
[2019-11-24 13:37] LABS: INR 2.8 (0.8-1.4); PROTHROMBIN TIME PATIENT 30.7 SEC (12.2-14.7)
[2019-11-24 13:37] LABS: CREATININE SERUM 1.13 MG/DL (0.60-1.30); GFR ESTIMATED 46
[2019-11-24 13:38] LABS: BUN/CREATININE RATIO 19
[2019-11-24 13:39] LABS: ALANINE AMINOTRANSFERASE 22 U/L (0-55)
[2019-11-24] MEDS ORDERED: RX-ALBUTEROL INHALER (PROAIR) 8.5 GM IH STA (13:40)
--- NOTE | 2019-11-24 13:45 | Diagnostic Imaging Report ---
INDICATION: Right leg swelling. Right leg venous Doppler study was performed in the routine fashion with color flow Doppler and waveform analysis. FINDINGS: The right common femoral vein, superficial femoral vein, popliteal vein and visualized portion of the tibial veins show normal compressibility and venous flow patterns. There is normal augmentation. IMPRESSION: No evidence of deep vein thrombosis of the major veins of the right leg. Dictated by: Dictated on workstation # [id number]
--- OUTSIDE RECORDS SUMMARY | 2019-11-24 13:56 | XMS REPORT | Continuity of Care Document ---
Author Organization Unknown Address Unknown Phone Unavailable Allergies Active Description Code Type Severity Reaction Onset Reported/Identified Relationship to Patient Clinical Status Yes No Known Drug Allergies [id number] Drug Allergy Unknown N/A 08/22/2019 Medications There is no data. 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.A1 MYOCARDIAL INFARCTION TYPE 2 08/25/2019 BUSHRA HAQUE MD Ot I25.10 ATHSCL HEART DISEASE OF [place] CORONARY 08/25/2019 BUSHRA HAQUE MD Ot I48.91 UNSPECIFIED ATRIAL FIBRILLATION 08/25/2019 BUSHRA HAQUE MD Ot I49.5 SICK SINUS SYNDROME 08/25/2019 BUSHRA HAQUE MD Ot I50.9 HEART FAILURE, UNSPECIFIED 08/25/2019 BUSHRA HAQUE MD Ot I95.1 ORTHOSTATIC HYPOTENSION 08/25/2019 BUSHRA HAQUE MD Ot J18.9 PNEUMONIA, UNSPECIFIED ORGANISM 08/25/2019 BUSHRA HAQUE MD Ot J90 PLEURAL EFFUSION, NOT ELSEWHERE CLASSIFI 08/25/2019 BUSHRA HAQUE MD Ot N18.3 CHRONIC KIDNEY DISEASE, STAGE 3 (MODERAT 08/25/2019 BUSHRA HAQUE MD Ot N39.0 URINARY TRACT INFECTION, SITE NOT SPECIF 08/25/2019 BUSHRA HAQUE MD Ot R00.1 BRADYCARDIA, UNSPECIFIED 08/25/2019 BUSHRA HAQUE MD Ot R29.6 REPEATED FALLS 08/26/2019 BUSHRA HAQUE MD Ot D72.829 ELEVATED WHITE BLOOD CELL COUNT, UNSPECI 08/26/2019 BUSHRA HAQUE MD Ot E87.2 ACIDOSIS 08/26/2019 BUSHRA HAQUE MD Ot 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 KD[place] DIS W HRT FAIL AND ST 08/26/2019 BUSHRA HAQUE MD Ot I16.1 HYPERTENSIVE EMERGENCY 08/26/2019 BUSHRA HAQUE MD Ot I21.A1 MYOCARDIAL INFARCTION TYPE 2 08/26/2019 BUSHRA HAQUE MD Ot I25.10 ATHSCL HEART DISEASE OF [place] CORONARY 08/26/2019 BUSHRA HAQUE MD Ot I48.91 UNSPECIFIED ATRIAL FIBRILLATION 08/26/2019 BUSHRA HAQUE MD Ot I49.5 SICK SINUS SYNDROME 08/26/2019 BUSHRA HAQUE MD Ot I50.9 HEART FAILURE, UNSPECIFIED 08/26/2019 BUSHRA HAQUE MD Ot I95.1 ORTHOSTATIC HYPOTENSION 08/26/2019 BUSHRA HAQUE MD Ot J18.9 PNEUMONIA, UNSPECIFIED ORGANISM 08/26/2019 BUSHRA HAQUE MD Ot J90 PLEURAL EFFUSION, NOT ELSEWHERE CLASSIFI 08/26/2019 BUSHRA HAQUE MD Ot N18.3 CHRONIC KIDNEY DISEASE, STAGE 3 (MODERAT 08/26/2019 BUSHRA HAQUE MD Ot N39.0 URINARY TRACT INFECTION, SITE NOT SPECIF 08/26/2019 BUSHRA HAQUE MD Ot R00.1 BRADYCARDIA, UNSPECIFIED 08/26/2019 BUSHRA HAQUE MD Ot R29.6 REPEATED FALLS 08/26/2019 BUSHRA HAQUE MD Ot D72.829 ELEVATED WHITE BLOOD CELL COUNT, UNSPECI 08/26/2019 BUSHRA HAQUE MD Ot E87.2 ACIDOSIS 08/26/2019 BUSHRA HAQUE MD Ot 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 KD[place] DIS W HRT FAIL AND ST 08/26/2019 BUSHRA HAQUE MD Ot I16.1 HYPERTENSIVE EMERGENCY 08/26/2019 BUSHRA HAQUE MD Ot I21.A1 MYOCARDIAL INFARCTION TYPE 2 08/26/2019 BUSHRA HAQUE MD Ot I25.10 ATHSCL HEART DISEASE OF [place] CORONARY 08/26/2019 GARLAND JORDAN, BUSHRA Short Ot I44.2 ATRIOVENTRICULAR BLOCK, COMPLETE 08/26/2019 BUSHRA HAQUE MD Ot I48.0 PAROXYSMAL ATRIAL FIBRILLATION 08/26/2019 BUSHRA HAQUE MD Ot I49.5 SICK SINUS SYNDROME 08/26/2019 BUSHRA HAQUE MD Ot I50.21 ACUTE SYSTOLIC (CONGESTIVE) HEART FAILUR 08/26/2019 BUSHRA HAQUE MD Ot I95.1 ORTHOSTATIC HYPOTENSION 08/26/2019 BUSHRA HAQUE MD Ot J18.9 PNEUMONIA, UNSPECIFIED ORGANISM 08/26/2019 GARLAND JORDAN, BUSHRA Short Ot J90 PLEURAL EFFUSION, NOT ELSEWHERE CLASSIFI 08/26/2019 BUSHRA HAQUE MD Ot J96.00 ACUTE RESPIRATORY FAILURE, UNSP W HYPOXI 08/26/2019 BUSHRA HAQUE MD Ot N18.3 CHRONIC KIDNEY DISEASE, STAGE 3 (MODERAT 08/26/2019 GARLAND JORDAN, BUSHRA Short Ot N39.0 URINARY TRACT INFECTION, SITE NOT SPECIF 08/26/2019 BUSHRA HAQUE MD Ot R29.6 REPEATED FALLS 11/24/2019 ROBERTO GUERRA TICKET MANAGER Ot I51.7 CARDIOMEGALY 11/24/2019 ROBERTO GUERRA TICKET MANAGER Ot J18.8 OTHER PNEUMONIA, UNSPECIFIED ORGANISM 11/24/2019 ROBERTO GUERRA TICKET MANAGER Ot J90 PLEURAL EFFUSION, NOT ELSEWHERE CLASSIFI 11/24/2019 ROBERTO GUERRA TICKET MANAGER Ot I51.7 CARDIOMEGALY 11/24/2019 ROBERTO GUERRA TICKET MANAGER Ot J18.8 OTHER PNEUMONIA, UNSPECIFIED ORGANISM 11/24/2019 DESIREE GUERRAINE Yeimy TICKET MANAGER Ot J90 PLEURAL EFFUSION, NOT ELSEWHERE CLASSIFI Procedures Code Description Performed By Per formed On [id number] ME ASURE OF CARDIAC SAMPL PRESSURE, L H 08/22/2019 [id number] PE RFORMANCE OF CARDIAC PACING, CONTINUOU 08/22/2019 [id number] FL UOROSCOPY OF MULT COR ART USING L OSM 08/22/2019 [id number] FL UOROSCOPY OF LEFT HEART USING LOW OSMO 08/22/2019 [id number] IN SERTION OF PACEMAKER LEAD INTO R VENTR 08/24/2019 [id number] IN SERT PACE, SINGL SHOBHA RT RESPN IN CHES 08/24/2019 Results Test Result Range LIPID PANEL - 04/07/19 14:45 CHOLESTEROL, TOTAL 136 mg/dL <200 HDL CHOLESTEROL 43 mg/dL >50 TRIGLYCERIDES 126 mg/dL <150 LDL-CHOLESTEROL 72 mg/dL (calc) NRG CHOL/HDLC RATIO 3.2 (calc) <5.0 NON HDL CHOLESTEROL 93 mg/dL (calc) <130 CMP - 04/07/19 14:45 GLUCOSE 96 mg/dL 65-99 UREA NITROGEN (BUN) 18 mg/dL 7-25 CREATININE 0.94 mg/dL 0.60-0.88 eGFR NON-AFR. IN[place]ES[place] 55 mL/min/1.73m2 > OR = 60 eGFR 64 mL/min/1.73m2 > OR = 60 BUN/CREATININE RATIO 19 (calc) 6-22 SODIUM 138 mmol/L 135-146 POTASSIUM 4.1 mmol/L 3.5-5.3 CHLORIDE 105 mmol/L 98-110 CARBON DIOXIDE 20 mmol/L 20-32 CALCIUM 9.5 mg/dL 8.6-10.4 PROTEIN, TOTAL 6.7 g/dL 6.1-8.1 ALBUMIN 4.1 g/dL 3.6-5.1 GLOBULIN 2.6 g/dL (calc) 1.9-3.7 ALBUMIN/GLOBULIN RATIO 1.6 (calc) 1.0-2. 5 BILIRUBIN, TOTAL 0.9 mg/dL 0.2-1.2 ALKALINE PHOSPHATASE 80 U/L 33-130 AST 25 U/L 10-35 ALT 14 U/L 6-29 CBC - 04/07/19 14:45 WHITE BLOOD CELL COUNT 10.5 Thousand/uL 3.8-10.8 RED BLOOD CELL COUNT 4.86 Million/uL 3.8 0-5.10 HEMOGLOBIN 14.4 g/dL 11.7-15.5 HEMATOCRIT 43.9 % 35.0-45.0 MCV 90.3 fL 80.0-100.0 MCH 29.6 pg 27.0-33.0 MCHC 32.8 g/dL 32.0-36.0 RDW 12.9 % 11.0-15.0 PLATELET COUNT 156 Thousand/uL 140-400 MPV 12.9 fL 7.5-12.5 ABSOLUTE NEUTROPHILS 7140 cells/uL 1500- 7800 ABSOLUTE LYMPHOCYTES 2079 cells/uL 850-3 900 ABSOLUTE MONOCYTES 914 cells/uL 200-950 ABSOLUTE EOSINOPHILS 326 cells/uL 15-500 ABSOLUTE BASOPHILS 42 cells/uL 0-200 NEUTROPHILS 68 % NRG LYMPHOCYTES 19.8 % NRG MONOCYTES 8.7 % NRG EOSINOPHILS 3.1 % NRG BASOPHILS 0.4 % NRG Complete urinalysis with reflex to cultu re - 08/22/19 11:55 Urine color determination YESSICA NRG Urine clarity determination SL CLOUDY N RG Urine pH measurement by test strip 5.5 5-9 Specific gravity of urine by test strip >= 1.016-1.022 Urine protein assay by test strip, semi-quantitative 3+ NEGATIVE Urine glucose detection by automated test strip NE GATIVE NEGATIVE Erythrocytes detection in urine sediment by light micr oscopy NEGATIVE NEGATIVE Urine ketones detection by automated test strip TR KRISTOPHER NEGATIVE Urine nitrite detection by test strip NEGATIVE NEGATIVE Urine total bilirubin detection by test strip 2+ NEGATIVE Urine urobilinogen measurement by automated test strip (mass/volume) 1.0 mg/dL < = 1.0 Urine leukocyte esterase detection by dipstick NEG ATIVE NEGATIVE Automated urine sediment erythrocyte cou nt by microscopy (number/high power field) NONE NRG Automated urine sediment leukocyte count by microscopy (number/high power field) [HPF] NRG Bacteria detection in urine sediment by light microsco py LARGE NRG Squamous epithelial cells detection in u rine sediment by light microscopy RARE NRG Crystals detection in urine sediment by light microsco py NONE NRG Casts detection in urine sediment by light microscopy PRESENT NRG Mucus detection in urine sediment by light microscopy NEGATIVE NRG Complete urinalysis with reflex to culture YES NRG Hyaline casts detection in urine sediment by light vinh roscopy >50 NRG Bacterial urine culture - 08/22/19 11:55 Bacterial urine culture [id number] NRG COLONY COUNT >100,000/ML NRG FTX;REPORTABLE SUSCEPTIBILITY REPORTED 08/24 09:25 NRG FREE TEXT ENTRY 2 PRELIM RAPID ID BY [facility] [id number] NRG Dirithromycin susceptibility test by dis k diffusion - 08/22/19 11:55 Gentamicin susceptibility test by minimum inhibitory c oncentration <= NRG Trimethoprim/sulfamethoxazole susceptibi lity test by minimum inhibitoryconcentration <= NRG Levofloxacin susceptibility test by minimum inhibitory concentration <= NRG Ampicillin susceptibility test by minimum inhibitory c oncentration > NRG Cefazolin susceptibility test by minimum inhibitory co ncentration > NRG Ceftriaxone susceptibility test by minimum inhibitory concentration <= NRG Ciprofloxacin susceptibility test by minimum inhibitor y concentration <= NRG Meropenem susceptibility test by minimum inhibitory co ncentration <= NRG Nitrofurantoin susceptibility test by mi nimum inhibitory concentration > NRG Amoxicillin and clavulanate potassium susc VINH R NRG Blood CBC with ordered manual differenti al panel - 08/22/19 14:50 Blood leukocytes automated count (number/volume) 15.0 10*3/uL 4.3-11.0 Blood erythrocytes automated count (number/volume) 4.96 10*6/uL 4.35-5.85 Venous blood hemoglobin measurement (mass/volume) 15.0 g/dL 11.5-16.0 Blood hematocrit (volume fraction) 45 % 35-52 Automated erythrocyte mean corpuscular volume 90 [ foz_us] 80-99 Automated erythrocyte mean corpuscular h emoglobin (mass per erythrocyte) 30 pg 25-34 Automated erythrocyte mean corpuscular h emoglobin concentration measurement (mass/volume) 34 g/dL 32-36 Automated erythrocyte distribution width ratio 14. 9 % 10.0- 14.5 Automated blood platelet count (count/volume) 290 10*3/uL 130-400 Automated blood platelet mean volume measurement 11.0 [foz_us] 7.4-10.4 Automated blood neutrophils/100 leukocytes 76 % 42-75 Automated blood lymphocytes/100 leukocytes 15 % 12-44 Blood monocytes/100 leukocytes 7 % NRG Automated blood eosinophils/100 leukocytes 0 % 0-10 Automated blood basophils/100 leukocytes 0 % 0-10 Blood neutrophils automated count (number/volume) 11.4 10*3 1.8-7.8 Blood lymphocytes automated count (number/volume) 2.3 10*3 1.0-4.0 Blood monocytes automated count (number/volume) 1. 3 10*3 0.0-1.0 Automated eosinophil count 0.0 10*3/uL 0 .0-0.3 Automated blood basophil count (count/volume) 0.0 10*3/uL 0.0-0.1 Manual blood segmented neutrophils/100 leukocytes 76 % NRG Blood band neutrophils/100 leukocytes 1 % NRG Manual blood lymphocytes/100 leukocytes 15 % NRG Manual eosinophils/100 leukocytes in nose 1 % NRG Manual blood basophils/100 leukocytes 0 % NRG Comprehensive metabolic panel - 08/22/19 14:50 Serum or plasma sodium measurement (moles/volume) 136 mmol/L 135-145 Serum or plasma potassium measurement (moles/volume) 3.8 mmol/L 3.6-5.0 Serum or plasma chloride measurement (moles/volume) 100 mmol/L 98-107 Carbon dioxide 18 mmol/L 21-32 Serum or plasma anion gap determination (moles/volume) 18 mmol/L 5-14 Serum or plasma urea nitrogen measurement (mass/volume ) 17 mg/dL 7-18 Serum or plasma creatinine measurement (mass/volume) 1.22 mg/dL 0.60-1.30 Serum or plasma urea nitrogen/creatinine mass ratio 14 NRG Serum or plasma creatinine measurement w ith calculation of estimated glomerular filtration rate 42 NRG Serum or plasma glucose measurement (mass/volume) 155 mg/dL 70-105 Serum or plasma calcium measurement (mass/volume) 9.4 mg/dL 8.5-10.1 Serum or plasma total bilirubin measurement (mass/volu me) 0.9 mg/dL 0.1-1.0 Serum or plasma alkaline phosphatase martha surement (enzymatic activity/volume) 104 U/L 40-136 Serum or plasma aspartate aminotransfera se measurement (enzymatic activity/volume) 89 U/L 5-34 Serum or plasma alanine aminotransferase measurement (enzymatic activity/volume) 21 U/L 0-55 Serum or plasma protein measurement (mass/volume) 7.0 g/dL 6.4-8.2 Serum or plasma albumin measurement (mass/volume) 3.9 g/dL 3.2-4.5 CALCIUM CORRECTED 9.5 mg/dL 8.5-10.1 Magnesium - 08/22/19 14:50 Magnesium 1.6 mg/dL 1.6-2.4 TROPONIN I FS - 08/22/19 14:50 TROPONIN I FS 8.72 ng/mL <0.30 PROBNP FS - 08/22/19 14:50 PROBNP FS 7906.0 pg/mL <75.0 Myoglobin, serum - 08/22/19 14:50 Myoglobin, serum 82.4 ng/mL 10.0-92.0 Methicillin resistant Staphylococcus aur eus (MRSA) screening culture - 08/22/19 17:55 Methicillin resistant Staphylococcus aureus (MRSA) scr eening culture NEG NRG PT panel in platelet poor plasma by coag ulation assay - 08/22/19 19:38 Prothrombin time (PT) in platelet poor plasma by coagu lation assay 15.5 s 12.2-14.7 INR in platelet poor plasma or blood by coagulation as say 1.2 0.8-1.4 Activated partial thromboplastin time (a PTT) in platelet poor plasma bycoagulation assay - 08/22/19 19:38 Activated partial thromboplastin time (a PTT) in platelet poor plasma bycoagulation assay 46 s 24-35 Complete blood count (CBC) with automate d white blood cell (WBC) differential - 08/23/19 02:55 Blood leukocytes automated count (number/volume) 16.7 10*3/uL 4.3-11.0 Blood erythrocytes automated count (number/volume) 4.69 10*6/uL 4.35-5.85 Venous blood hemoglobin measurement (mass/volume) 14.0 g/dL 11.5-16.0 Blood hematocrit (volume fraction) 43 % 35-52 Automated erythrocyte mean corpuscular volume 91 [ foz_us] 80-99 Automated erythrocyte mean corpuscular h emoglobin (mass per erythrocyte) 30 pg 25-34 Automated erythrocyte mean corpuscular h emoglobin concentration measurement (mass/volume) 33 g/dL 32-36 Automated erythrocyte distribution width ratio 14. 9 % 10.0- 14.5 Automated blood platelet count (count/volume) 235 10*3/uL 130-400 Automated blood platelet mean volume measurement 11.7 [foz_us] 7.4-10.4 Automated blood neutrophils/100 leukocytes 71 % 42-75 Automated blood lymphocytes/100 leukocytes 17 % 12-44 Blood monocytes/100 leukocytes 12 % 0-12 Automated blood eosinophils/100 leukocytes 0 % 0-10 Automated blood basophils/100 leukocytes 0 % 0-10 Blood neutrophils automated count (number/volume) 11.8 10*3 1.8-7.8 Blood lymphocytes automated count (number/volume) 2.9 10*3 1.0-4.0 Blood monocytes automated count (number/volume) 2. 0 10*3 0.0-1.0 Automated eosinophil count 0.0 10*3/uL 0 .0-0.3 Automated blood basophil count (count/volume) 0.0 10*3/uL 0.0-0.1 Comprehensive metabolic panel - 08/23/19 02:55 Serum or plasma sodium measurement (moles/volume) 138 mmol/L 135-145 Serum or plasma potassium measurement (moles/volume) 4.0 mmol/L 3.6-5.0 Serum or plasma chloride measurement (moles/volume) 108 mmol/L 98-107 Carbon dioxide 16 mmol/L 21-32 Serum or plasma anion gap determination (moles/volume) 14 mmol/L 5-14 Serum or plasma urea nitrogen measurement (mass/volume ) 21 mg/dL 7-18 Serum or plasma creatinine measurement (mass/volume) 1.12 mg/dL 0.60-1.30 Serum or plasma urea nitrogen/creatinine mass ratio 19 NRG Serum or plasma creatinine measurement w ith calculation of estimated glomerular filtration rate 46 NRG Serum or plasma glucose measurement (mass/volume) 141 mg/dL 70-105 Serum or plasma calcium measurement (mass/volume) 9.0 mg/dL 8.5-10.1 Serum or plasma total bilirubin measurement (mass/volu me) 0.9 mg/dL 0.1-1.0 Serum or plasma alkaline phosphatase martha surement (enzymatic activity/volume) 92 U/L 40-136 Serum or plasma aspartate aminotransfera se measurement (enzymatic activity/volume) 70 U/L 5-34 Serum or plasma alanine aminotransferase measurement (enzymatic activity/volume) 23 U/L 0-55 Serum or plasma protein measurement (mass/volume) 6.5 g/dL 6.4-8.2 Serum or plasma albumin measurement (mass/volume) 3.6 g/dL 3.2-4.5 CALCIUM CORRECTED 9.3 mg/dL 8.5-10.1 Serum or plasma phosphate measurement (m ass/volume) - 08/23/19 02:55 Serum or plasma phosphate measurement (mass/volume) 3.3 mg/dL 2.3-4.7 Magnesium - 08/23/19 02:55 Magnesium 1.6 mg/dL 1.6-2.4 Serum or plasma troponin i.cardiac measu rement (mass/volume) - 08/23/19 02:55 Serum or plasma troponin i.cardiac measurement (mass/v olume) 13.271 ng/mL <0.028 Blood lactic acid measurement (moles/vol ume) - 08/23/19 05:57 Blood lactic acid measurement (moles/volume) 1.61 mmol/L 0.50-2.00 Arterial blood gas measurement - 0 06:49 Blood pCO2 39 mm[Hg] 35-45 Blood pO2 67 mm[Hg] 79-93 Arterial blood bicarbonate measurement (moles/volume) 21 mmol/L 23-27 Arterial blood base excess by calculation -3.6 mmo l/L -2.5-2.5 Arterial blood oxygen saturation measurement 93 % 94-100 * Inhaled oxygen flow rate NC@3L NRG Arterial blood pH measurement with patient temperature correction 7.35 7.37-7.43 Arterial blood carbon dioxide, total measurement (mole s/volume) 22.3 mmol/L 21.0-31.0 Body site LEFT RADIAL NRG Assessment of wrist artery patency prior to arterial p uncture POSITIVE NRG Setting of ventilation mode NO NR G Measurement of body temperature 36.8 NRG Complete urinalysis with reflex to cultu re - 08/23/19 08:50 Urine color determination YELLOW NRG Urine clarity determination SL CLOUDY N RG Urine pH measurement by test strip 5.0 5-9 Specific gravity of urine by test strip >= 1.016-1.022 Urine protein assay by test strip, semi-quantitative 1+ NEGATIVE Urine glucose detection by automated test strip NE GATIVE NEGATIVE Erythrocytes detection in urine sediment by light micr oscopy TRACE-I NEGATIVE Urine ketones detection by automated test strip NE GATIVE NEGATIVE Urine nitrite detection by test strip NEGATIVE NEGATIVE Urine total bilirubin detection by test strip NEGA TIVE NEGATIVE Urine urobilinogen measurement by automated test strip (mass/volume) 0.2 mg/dL < = 1.0 Urine leukocyte esterase detection by dipstick 1+ NEGATIVE Automated urine sediment erythrocyte cou nt by microscopy (number/high power field) [HPF] NRG Automated urine sediment leukocyte count by microscopy (number/high power field) [HPF] NRG Bacteria detection in urine sediment by light microsco py MODERATE NRG Squamous epithelial cells detection in u rine sediment by light microscopy 2-5 NRG Crystals detection in urine sediment by light microsco py NONE NRG Casts detection in urine sediment by light microscopy PRESENT NRG Mucus detection in urine sediment by light microscopy NEGATIVE NRG Complete urinalysis with reflex to culture YES NRG Hyaline casts detection in urine sediment by light vinh roscopy 5-10 NRG Complete blood count (CBC) with automate d white blood cell (WBC) differential - 08/24/19 03:17 Blood leukocytes automated count (number/volume) 18.2 10*3/uL 4.3-11.0 Blood erythrocytes automated count (number/volume) 4.12 10*6/uL 4.35-5.85 Venous blood hemoglobin measurement (mass/volume) 12.3 g/dL 11.5-16.0 Blood hematocrit (volume fraction) 39 % 35-52 Automated erythrocyte mean corpuscular volume 93 [ foz_us] 80-99 Automated erythrocyte mean corpuscular h emoglobin (mass per erythrocyte) 30 pg 25-34 Automated erythrocyte mean corpuscular h emoglobin concentration measurement (mass/volume) 32 g/dL 32-36 Automated erythrocyte distribution width ratio 14. 8 % 10.0- 14.5 Automated blood platelet count (count/volume) 235 10*3/uL 130-400 Automated blood platelet mean volume measurement 11.8 [foz_us] 7.4-10.4 Automated blood neutrophils/100 leukocytes 85 % 42-75 Automated blood lymphocytes/100 leukocytes 8 % 12-44 Blood monocytes/100 leukocytes 7 % 0-12 Automated blood eosinophils/100 leukocytes 0 % 0-10 Automated blood basophils/100 leukocytes 0 % 0-10 Blood neutrophils automated count (number/volume) 15.5 10*3 1.8-7.8 Blood lymphocytes automated count (number/volume) 1.5 10*3 1.0-4.0 Blood monocytes automated count (number/volume) 1. 2 10*3 0.0-1.0 Automated eosinophil count 0.0 10*3/uL 0 .0-0.3 Automated blood basophil count (count/volume) 0.0 10*3/uL 0.0-0.1 Comprehensive metabolic panel - 08/24/19 03:17 Serum or plasma sodium measurement (moles/volume) 136 mmol/L 135-145 Serum or plasma potassium measurement (moles/volume) 4.2 mmol/L 3.6-5.0 Serum or plasma chloride measurement (moles/volume) 105 mmol/L 98-107 Carbon dioxide 18 mmol/L 21-32 Serum or plasma anion gap determination (moles/volume) 13 mmol/L 5-14 Serum or plasma urea nitrogen measurement (mass/volume ) 25 mg/dL 7-18 Serum or plasma creatinine measurement (mass/volume) 1.26 mg/dL 0.60-1.30 Serum or plasma urea nitrogen/creatinine mass ratio 20 NRG Serum or plasma creatinine measurement w ith calculation of estimated glomerular filtration rate 40 NRG Serum or plasma glucose measurement (mass/volume) 139 mg/dL 70-105 Serum or plasma calcium measurement (mass/volume) 8.3 mg/dL 8.5-10.1 Serum or plasma total bilirubin measurement (mass/volu me) 0.5 mg/dL 0.1-1.0 Serum or plasma alkaline phosphatase martha surement (enzymatic activity/volume) 83 U/L 40-136 Serum or plasma aspartate aminotransfera se measurement (enzymatic activity/volume) 47 U/L 5-34 Serum or plasma alanine aminotransferase measurement (enzymatic activity/volume) 21 U/L 0-55 Serum or plasma protein measurement (mass/volume) 6.2 g/dL 6.4-8.2 Serum or plasma albumin measurement (mass/volume) 3.4 g/dL 3.2-4.5 CALCIUM CORRECTED 8.8 mg/dL 8.5-10.1 Serum or plasma phosphate measurement (m ass/volume) - 08/24/19 03:17 Serum or plasma phosphate measurement (mass/volume) 4.0 mg/dL 2.3-4.7 Magnesium - 08/24/19 03:17 Magnesium 1.9 mg/dL 1.6-2.4 Arterial blood gas measurement - 0 04:00 Blood pCO2 47 mm[Hg] 35-45 Blood pO2 32 mm[Hg] 79-93 Arterial blood bicarbonate measurement (moles/volume) 23 mmol/L 23-27 Arterial blood base excess by calculation -1.9 mmo l/L -2.5-2.5 Arterial blood oxygen saturation measurement 50 % 94-100 * Inhaled oxygen flow rate HIGH FLOW NC 8L NRG Arterial blood pH measurement with patient temperature correction 7.32 7.37-7.43 Arterial blood carbon dioxide, total measurement (mole s/volume) 24.7 mmol/L 21.0-31.0 Body site LEFT RADIAL NRG Assessment of wrist artery patency prior to arterial p uncture POSITIVE NRG Setting of ventilation mode NO NR G Measurement of body temperature 37.3 NRG Complete urinalysis with reflex to cultu re - 08/24/19 04:00 Urine color determination YELLOW NRG Urine clarity determination CLEAR NR G Urine pH measurement by test strip 6.0 5-9 Specific gravity of urine by test strip 1.010 1.016-1.022 Urine protein assay by test strip, semi-quantitative NEGATIVE NEGATIVE Urine glucose detection by automated test strip NE GATIVE NEGATIVE Erythrocytes detection in urine sediment by light micr oscopy TRACE-I NEGATIVE Urine ketones detection by automated test strip NE GATIVE NEGATIVE Urine nitrite detection by test strip NEGATIVE NEGATIVE Urine total bilirubin detection by test strip NEGA TIVE NEGATIVE Urine urobilinogen measurement by automated test strip (mass/volume) 0.2 mg/dL < = 1.0 Urine leukocyte esterase detection by dipstick NEG ATIVE NEGATIVE Automated urine sediment erythrocyte cou nt by microscopy (number/high power field) RARE NRG Automated urine sediment leukocyte count by microscopy (number/high power field) RARE NRG Bacteria detection in urine sediment by light microsco py FEW NRG Squamous epithelial cells detection in u rine sediment by light microscopy 0-2 NRG Crystals detection in urine sediment by light microsco py NONE NRG Casts detection in urine sediment by light microscopy NONE NRG Mucus detection in urine sediment by light microscopy NEGATIVE NRG Complete urinalysis with reflex to culture NO NRG Bacterial blood culture - 08/24/19 06:33 Bacterial blood culture NG NRG Bacterial blood culture - 08/24/19 06:40 Bacterial blood culture NG NRG Bacterial blood culture - 08/24/19 06:45 Bacterial blood culture NG NRG Complete blood count (CBC) with automate d white blood cell (WBC) differential - 08/25/19 02:55 Blood leukocytes automated count (number/volume) 14.5 10*3/uL 4.3-11.0 Blood erythrocytes automated count (number/volume) 4.07 10*6/uL 4.35-5.85 Venous blood hemoglobin measurement (mass/volume) 12.2 g/dL 11.5-16.0 Blood hematocrit (volume fraction) 38 % 35-52 Automated erythrocyte mean corpuscular volume 93 [ foz_us] 80-99 Automated erythrocyte mean corpuscular h emoglobin (mass per erythrocyte) 30 pg 25-34 Automated erythrocyte mean corpuscular h emoglobin concentration measurement (mass/volume) 32 g/dL 32-36 Automated erythrocyte distribution width ratio 14. 8 % 10.0- 14.5 Automated blood platelet count (count/volume) 245 10*3/uL 130-400 Automated blood platelet mean volume measurement 11.4 [foz_us] 7.4-10.4 Automated blood neutrophils/100 leukocytes 66 % 42-75 Automated blood lymphocytes/100 leukocytes 19 % 12-44 Blood monocytes/100 leukocytes 13 % 0-12 Automated blood eosinophils/100 leukocytes 2 % 0-10 Automated blood basophils/100 leukocytes 0 % 0-10 Blood neutrophils automated count (number/volume) 9.6 10*3 1.8-7.8 Blood lymphocytes automated count (number/volume) 2.8 10*3 1.0-4.0 Blood monocytes automated count (number/volume) 1. 9 10*3 0.0-1.0 Automated eosinophil count 0.3 10*3/uL 0 .0-0.3 Automated blood basophil count (count/volume) 0.0 10*3/uL 0.0-0.1 Comprehensive metabolic panel - 08/25/19 02:55 Serum or plasma sodium measurement (moles/volume) 135 mmol/L 135-145 Serum or plasma potassium measurement (moles/volume) 4.0 mmol/L 3.6-5.0 Serum or plasma chloride measurement (moles/volume) 103 mmol/L 98-107 Carbon dioxide 21 mmol/L 21-32 Serum or plasma anion gap determination (moles/volume) 11 mmol/L 5-14 Serum or plasma urea nitrogen measurement (mass/volume ) 24 mg/dL 7-18 Serum or plasma creatinine measurement (mass/volume) 1.14 mg/dL 0.60-1.30 Serum or plasma urea nitrogen/creatinine mass ratio 21 NRG Serum or plasma creatinine measurement w ith calculation of estimated glomerular filtration rate 45 NRG Serum or plasma glucose measurement (mass/volume) 104 mg/dL 70-105 Serum or plasma calcium measurement (mass/volume) 8.2 mg/dL 8.5-10.1 Serum or plasma total bilirubin measurement (mass/volu me) 0.3 mg/dL 0.1-1.0 Serum or plasma alkaline phosphatase martha surement (enzymatic activity/volume) 93 U/L 40-136 Serum or plasma aspartate aminotransfera se measurement (enzymatic activity/volume) 36 U/L 5-34 Serum or plasma alanine aminotransferase measurement (enzymatic activity/volume) 17 U/L 0-55 Serum or plasma protein measurement (mass/volume) 5.9 g/dL 6.4-8.2 Serum or plasma albumin measurement (mass/volume) 3.2 g/dL 3.2-4.5 CALCIUM CORRECTED 8.8 mg/dL 8.5-10.1 Serum or plasma phosphate measurement (m ass/volume) - 08/25/19 02:55 Serum or plasma phosphate measurement (mass/volume) 3.5 mg/dL 2.3-4.7 Magnesium - 08/25/19 02:55 Magnesium 1.6 mg/dL 1.6-2.4 Serum or plasma lithium measurement (mol es/volume) - 08/25/19 02:55 BNP PT 446.3 pg/mL <100.0 Whole blood basic metabolic panel - 08/08 03/27 05:20 Serum or plasma sodium measurement (moles/volume) 137 mmol/L 135-145 Serum or plasma potassium measurement (moles/volume) 3.4 mmol/L 3.6-5.0 Serum or plasma chloride measurement (moles/volume) 101 mmol/L 98-107 Carbon dioxide 24 mmol/L 21-32 Serum or plasma anion gap determination (moles/volume) 12 mmol/L 5-14 Serum or plasma urea nitrogen measurement (mass/volume ) 25 mg/dL 7-18 Serum or plasma creatinine measurement (mass/volume) 0.96 mg/dL 0.60-1.30 Serum or plasma urea nitrogen/creatinine mass ratio 26 NRG Serum or plasma creatinine measurement w ith calculation of estimated glomerular filtration rate 55 NRG Serum or plasma glucose measurement (mass/volume) 100 mg/dL 70-105 Serum or plasma calcium measurement (mass/volume) 8.4 mg/dL 8.5-10.1 Serum or plasma phosphate measurement (m ass/volume) - 08/26/19 05:20 Serum or plasma phosphate measurement (mass/volume) 3.8 mg/dL 2.3-4.7 Magnesium - 08/26/19 05:20 Magnesium 1.9 mg/dL 1.6-2.4 Complete blood count (CBC) with automate d white blood cell (WBC) differential - 08/26/19 05:25 Blood leukocytes automated count (number/volume) 13.6 10*3/uL 4.3-11.0 Blood erythrocytes automated count (number/volume) 4.17 10*6/uL 4.35-5.85 Venous blood hemoglobin measurement (mass/volume) 12.4 g/dL 11.5-16.0 Blood hematocrit (volume fraction) 38 % 35-52 Automated erythrocyte mean corpuscular volume 92 [ foz_us] 80-99 Automated erythrocyte mean corpuscular h emoglobin (mass per erythrocyte) 30 pg 25-34 Automated erythrocyte mean corpuscular h emoglobin concentration measurement (mass/volume) 32 g/dL 32-36 Automated erythrocyte distribution width ratio 14. 3 % 10.0- 14.5 Automated blood platelet count (count/volume) 245 10*3/uL 130-400 Automated blood platelet mean volume measurement 10.9 [foz_us] 7.4-10.4 Automated blood neutrophils/100 leukocytes 64 % 42-75 Automated blood lymphocytes/100 leukocytes 19 % 12-44 Blood monocytes/100 leukocytes 13 % 0-12 Automated blood eosinophils/100 leukocytes 4 % 0-10 Automated blood basophils/100 leukocytes 0 % 0-10 Blood neutrophils automated count (number/volume) 8.7 10*3 1.8-7.8 Blood lymphocytes automated count (number/volume) 2.6 10*3 1.0-4.0 Blood monocytes automated count (number/volume) 1. 8 10*3 0.0-1.0 Automated eosinophil count 0.6 10*3/uL 0 .0-0.3 Automated blood basophil count (count/volume) 0.0 10*3/uL 0.0-0.1 CBC - 09/18/19 08:20 WHITE BLOOD CELL COUNT 11.9 Thousand/uL 3.8-10.8 RED BLOOD CELL COUNT 5.05 Million/uL 3.8 0-5.10 HEMOGLOBIN 15.2 g/dL 11.7-15.5 HEMATOCRIT 46.3 % 35.0-45.0 MCV 91.7 fL 80.0-100.0 MCH 30.1 pg 27.0-33.0 MCHC 32.8 g/dL 32.0-36.0 RDW 13.5 % 11.0-15.0 PLATELET COUNT 231 Thousand/uL 140-400 MPV 12.4 fL 7.5-12.5 ABSOLUTE NEUTROPHILS 8068 cells/uL 1500- 7800 ABSOLUTE LYMPHOCYTES 2416 cells/uL 850-3 900 ABSOLUTE MONOCYTES 964 cells/uL 200-950 ABSOLUTE EOSINOPHILS 417 cells/uL 15-500 ABSOLUTE BASOPHILS 36 cells/uL 0-200 NEUTROPHILS 67.8 % NRG LYMPHOCYTES 20.3 % NRG MONOCYTES 8.1 % NRG EOSINOPHILS 3.5 % NRG BASOPHILS 0.3 % NRG UA W/ MICROSCOPY - 09/18/19 08:20 COLOR YELLOW YELLOW APPEARANCE CLEAR CLEAR SPECIFIC GRAVITY 1.012 1.001-1.035 PH 5.5 5.0-8.0 GLUCOSE NEGATIVE NEGATIVE BILIRUBIN NEGATIVE NEGATIVE KETONES NEGATIVE NEGATIVE OCCULT BLOOD NEGATIVE NEGATIVE PROTEIN NEGATIVE NEGATIVE NITRITE NEGATIVE NEGATIVE LEUKOCYTE ESTERASE 1+ NEGATIVE WBC 0-5 /HPF < OR = 5 RBC NONE SEEN /HPF < OR = 2 SQUAMOUS EPITHELIAL CELLS 6-10 /HPF < OR = 5 BACTERIA NONE SEEN /HPF NONE SEEN HYALINE CAST NONE SEEN /LPF NONE SEEN CULTURE, URINE - 11/02/19 13:03 CULTURE, URINE, ROUTINE SEE NOTE NRG Encounters ACCT No. Visit Date/Time Discharge Status Pt. Type Provider Facility Loc./Unit Complaint [id number] 09/18/2019 08:30:00 09/18/2019 23:59: 59 CLS Outpatient MOE WILSONJ [facility] [id number] 11/02/2019 12:10:00 Document Registration [id number] 09/18/2019 08:30:00 Document Registration [id number] 04/07/2019 13:45:00 Document Registration [id number] 11/20/2019 11:38:00 23:59:59 CLS Outpatient ROBERTO GUERRA APRN [facility] RAD SOB,PNEUMONIA [id number] 08/22/2019 16:33:00 13:00:00 DIS Inpatient BUSHRA HAQUE MD [facility] 4TH SOB [id number] 11/24/2019 12:09:[address] Emergency KEVAN BELL [facility] ER LEG SWELLING
--- NOTE | 2019-11-24 14:03 | Diagnostic Imaging Report ---
INDICATION: Shortness of breath for several days. TIME OF EXAM: 1:54 PM. COMPARISON: 08/25/2019. FINDINGS: The heart is enlarged but stable. 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 There are congestive changes noted bilaterally. There are some mild interstitial changes throughout both lungs. No significant effusion or pneumothorax is seen. IMPRESSION: Interstitial changes suggestive of congestive failure. Dictated by: Dictated on workstation # [id number]
[2019-11-24] MEDS ORDERED: FUROSEMIDE 40 MG/4 ML INJ (LASIX) IVP ONE ×3 (14:45→15:30)
[2019-11-24 15:55] VITALS: BP 125/67
== END 2019-11-24 15:55 | disposition home or self-care (01) ==
LOC: EDUNIT# 12:08 → ER 12:09
DX: I13.0 Hypertensive heart and chronic kidney disease with heart failure and stage 1 through stage 4 chronic kidney disease, or unspecified chronic kidney disease (principal); I50.9 Heart failure, unspecified; N18.3 Chronic kidney disease, stage 3 (moderate); R60.0 Localized edema; Z95.0 Presence of cardiac pacemaker; Z79.82 Long term (current) use of aspirin; Z79.01 Long term (current) use of anticoagulants
CPT/HCPCS: 36415; 71045; 80053; 83615; 83880; 84145; 84484; 85025; 85610; 85730; 86141; 93005

== ENCOUNTER 2019-12-23 11:49 | Emergency (ER) | payer MEDICARE, MEDICAID ==
[~2019-12-23] VITALS: Ht 151.9 cm; Wt 72.7 kg
--- NOTE | 2019-12-23 12:10 | ED General ---
General Chief Complaint: General Problems/Pain Stated Complaint: LEG NUMBNESS;KIDNEY ISSUES Source of Information: Patient History of Present Illness Date Seen by Provider: Dec 23, 2019 Time Seen by Provider: 12:10 Initial Comments 89-year-old female brought in with leg swelling. Patient reports a been swollen for a while. Patient reports that she saw her primary care provider yesterday who told her that they would upper "water pill" patient has no significant change since yesterday. Reports that her son brought her here because they were concerned about something with her kidneys. She does not elaborate on that. Patient herself does not have any other complaints besides her leg swelling a little bit of tenderness. Patient denies any chest pain, shortness of breath, fevers chills or other systemic complaints. Allergies and Home Medications Allergies Coded Allergies: No Known Drug Allergies (Unverified , 08/22/19) Home Medications Aspirin 81 Mg Tablet.dr, 81 MG PO DAILY Prescribed by: LORA SMITH on 08/26/19 1013 Furosemide 20 Mg Tablet, 20 MG PO DAILY Prescribed by: JENNY CHAUDHRY on 08/26/19 1051 Ipratropium/Albuterol Sulfate 3 Ml Ampul.neb, 3 ML INH RTQID Prescribed by: LORA SMITH on 08/26/19 1013 Loratadine 10 Mg Tablet, 10 MG PO DAILY PRN for ALLERGY SYMPTOMS, (Reported) Metoprolol Tartrate 25 Mg Tablet, 25 MG PO BID Prescribed by: LORA SMITH on 08/26/19 1013 Patient Home Medication List Home Medication List Reviewed: Yes Review of Systems Review of Systems Constitutional: No chills, No fever Respiratory: No cough, No short of breath Cardiovascular: No chest pain; edema; No palpitations Gastrointestinal: no symptoms reported; No abdominal pain, No nausea, No vomiting Musculoskeletal: no symptoms reported Skin: no symptoms reported Psychiatric/Neurological: No Symptoms Reported Past Lplsmpc-Cwfinc-Cerbzr Hx Past Med/Social Hx: Reviewed Nursing Past Med/Soc Hx Patient Social History Recent Hopitalizations: No Seasonal Allergies Seasonal Allergies: No Past Medical History Surgeries: Yes Tonsillectomy Respiratory: No Cardiac: Yes Hypertension Neurological: No Genitourinary: Yes (CKD last known Stage III) Gastrointestinal: No Musculoskeletal: Yes (chronic knee pain) Endocrine: No HEENT: No Cancer: No Psychosocial: No Integumentary: No Blood Disorders: No Physical Exam Vital Signs Vital Signs - First Documented 12/23/19 12/23/19 11:56 13:42 Temp 36.0 Pulse 95 Resp 18 B/P (MAP) 130/96 (107) Pulse Ox 97 Capillary Refill : Height, Weight, BMI Height: '" Weight: lbs. oz. kg; 33.00 BMI Method: General Appearance: No Apparent Distress, WD/WN Neck: Non Tender, Supple Respiratory: Chest Non Tender, Lungs Clear Cardiovascular: Regular Rate, Rhythm, No Edema Gastrointestinal: Non Tender, Soft Extremity: Normal Capillary Refill, Swelling (2+ swelling bilatera) Neurologic/Psychiatric: Alert, Oriented x3, Normal Mood/Affect, public health staff nurse II-XII Norm as Tested Progress/Results/Core Measures Suspected Sepsis SIRS Temperature: Pulse: Respiratory Rate: Laboratory Tests 12/23/19 12:23: White Blood Count 11.0 Blood Pressure / Mean: Laboratory Tests 12/23/19 12:23: Creatinine 1.19, Platelet Count 266 Results/Orders Lab Results Laboratory Tests Test 12/23/19 12:23 Range/Units White Blood Count 11.0 4.3-11.0 10^3/uL Red Blood Count 4.33 L 4.35-5.85 10^6/uL Hemoglobin 13.5 11.5-16.0 G/DL Hematocrit 40 35-52 % Mean Corpuscular Volume 93 80-99 FL Mean Corpuscular Hemoglobin 31 25-34 PG Mean Corpuscular Hemoglobin Concent 34 32-36 G/DL Red Cell Distribution Width 13.8 10.0-14.5 % Platelet Count 266 130-400 10^3/uL Mean Platelet Volume 10.4 7.4-10.4 FL Neutrophils (%) (Auto) 63 42-75 % Lymphocytes (%) (Auto) 22 12-44 % Monocytes (%) (Auto) 12 0-12 % Eosinophils (%) (Auto) 3 0-10 % Basophils (%) (Auto) 0 0-10 % Neutrophils # (Auto) 7.0 1.8-7.8 X 10^3 Lymphocytes # (Auto) 2.4 1.0-4.0 X 10^3 Monocytes # (Auto) 1.4 H 0.0-1.0 X 10^3 Eosinophils # (Auto) 0.3 0.0-0.3 10^3/uL Basophils # (Auto) 0.0 0.0-0.1 10^3/uL Sodium Level 137 135-145 MMOL/L Potassium Level 3.8 3.6-5.0 MMOL/L Chloride Level 104 98-107 MMOL/L Carbon Dioxide Level 22 21-32 MMOL/L Anion Gap 11 5-14 MMOL/L Blood Urea Nitrogen 21 H 7-18 MG/DL Creatinine 1.19 0.60-1.30 MG/DL Estimat Glomerular Filtration Rate 43 BUN/Creatinine Ratio 18 Glucose Level 106 H 70-105 MG/DL Calcium Level 9.1 8.5-10.1 MG/DL My Orders Orders - JEAN,IRIS L DO Basic Metabolic Panel (12/23/19 12:09) Cbc With Automated Diff (12/23/19 12:09) Vital Signs/I&O 12/23/19 12/23/19 11:56 13:42 Temp 36.0 Pulse 95 70 Resp 18 18 B/P (MAP) 130/96 (107) 135/100 Pulse Ox 97 Capillary Refill : Progress Note : Time: 13:14 Progress Note Patient with no acute findings with no significant abnormalities on her labs. I recommended she increase her Lasix to 40 mg daily so 20 mg daily for 3 days. She should follow-up with her primary care provider. She is discharged in stable condition Departure Impression Primary Impression: Peripheral edema Disposition: 01 HOME, SELF-CARE Condition: Stable Departure-Patient Inst. Referrals: TIA WILSON MD (PCP/Family) Primary Care Physician Patient Instructions: Swelling, Dependent Edema (DC) Add. Discharge Instructions: Increase your Lasix from 20 mg daily to 40 mg daily 3 days Follow-up with your primary care provider in 3-4 days Emergency department focuses on treating and ruling out life-threatening diseases. Whenever possible, a diagnosis is given. However, most patients are given an impression based on their history, physical exam, and workup during your brief time in the ER. Information about probable diagnosis and other educational material has been provided. Please take the time to read and understand this information. It is very important that you follow up with a physician as discussed during the visit today. Failure to adhere to your follow-up instructions may lead to severe disability, injury, or so please make sure to keep your appointments or obtain one as requested. Please keep in mind the emergency department is not designed to your primary care or "family doctor" and nonurgent issues are best evaluated by an outpatient physician All discharge instructions reviewed with patient and/or family. Voiced understanding. IRIS JEAN DO Dec 23, 2019 12:10
--- NOTE | 2019-12-23 12:25 | NUR ---
BLOOD DRAWN BY LAB
[2019-12-23 12:42] LABS: BASOPHILS % (AUTO) 0 % (0-10); EOSINOPHILS # (AUTO) 0.3 10^3/uL (0.0-0.3); EOSINOPHILS % (AUTO) 3 % (0-10); HEMATOCRIT 40 % (35-52); HEMOGLOBIN 13.5 G/DL (11.5-16.0); LYMPHOCYTES # (AUTO) 2.4 X 10^3 (1.0-4.0); LYMPHOCYTES % (AUTO) 22 % (12-44); MEAN CORPUSCULAR HEMOGLOBIN 31 PG (25-34); MEAN CORPUSCULAR HGB CONC 34 G/DL (32-36); MEAN CORPUSCULAR VOLUME 93 FL (80-99); MEAN PLATELET VOLUME 10.4 FL (7.4-10.4); MONOCYTES # (AUTO) 1.4 X 10^3 (0.0-1.0); MONOCYTES % (AUTO) 12 % (0-12); NEUTROPHILS % (AUTO) 63 % (42-75); PLATELET COUNT 266 10^3/uL (130-400); RED CELL DISTRIBUTION WIDTH 13.8 % (10.0-14.5)
[2019-12-23 12:59] LABS: POTASSIUM 3.8 MMOL/L (3.6-5.0)
[2019-12-23 13:00] LABS: CALCIUM 9.1 MG/DL (8.5-10.1)
[2019-12-23 13:04] LABS: CREATININE SERUM 1.19 MG/DL (0.60-1.30)
--- NOTE | 2019-12-23 13:33 | NUR ---
CALLED AND GAVE UPDATE TO SON AND DAUGHTER IN LAW THEY REPORTS THAT LASIX WAS INCREASED YESTERDAY BY FAMILY DR WAS INSTRUCTED TO FOLLOW WHAT WAS TOLD TO THEM YESTEDAY AND FOLLOW UP WITH FAMILY . SON AND DAUGHTER IN LAW VOICED UNDERSTANDING.
[2019-12-23 13:42] VITALS: BP 135/100
--- OUTSIDE RECORDS SUMMARY | 2019-12-23 15:01 | XMS REPORT | Continuity of Care Document ---
Author Organization Unknown Address Unknown Phone Unavailable Allergies Active Description Code Type Severity Reaction Onset Reported/Identified Relationship to Patient Clinical Status Yes No Known Drug Allergies [id number] Drug Allergy Unknown N/A 08/22/2019 Medications There [...] MD Ot I25.10 ATHSCL HEART DISEASE OF [place] CORONARY 08/25/2019 BUSHRA HAQUE MD Ot I48.91 [...] MD Ot I25.10 ATHSCL HEART DISEASE OF [place] CORONARY 08/26/2019 BUSHRA HAQUE MD Ot I48.91 UNSPECIFIED ATRIAL FIBRILLATION 08/26/2019 BUSHRA HAQUE MD Ot I49.5 SICK SINUS SYNDROME 08/26/2019 BUSHRA HAQUE MD Ot I50.9 HEART FAILURE, UNSPECIFIED 08/26/2019 BUSHRA HAQUE MD Ot I95.1 ORTHOSTATIC HYPOTENSION 08/26/2019 BUSHRA HAQUE MD Ot J18.9 PNEUMONIA, UNSPECIFIED ORGANISM 08/26/2019 BUSHRA HAQUE MD Ot J90 PLEURAL EFFUSION, NOT ELSEWHERE CLASSIFI 08/26/2019 BUSHRA HAUQE MD Ot N18.3 CHRONIC KIDNEY DISEASE, STAGE [...] MD Ot I25.10 ATHSCL HEART DISEASE OF [place] CORONARY 08/26/2019 GARLAND JORDAN, BUSHRA Short Ot I44.2 ATRIOVENTRICULAR BLOCK, COMPLETE 08/26/2019 GARLAND JORDAN, BUSHRA Short Ot I48.0 PAROXYSMAL ATRIAL FIBRILLATION 08/26/2019 GARLAND JORDAN, BUSHRA Short Ot I49.5 SICK SINUS SYNDROME 08/26/2019 GARLAND JORDAN, BUSHRA Short Ot I50.21 ACUTE SYSTOLIC (CONGESTIVE) HEART FAILUR 08/26/2019 GARLAND JORDAN, BUSHRA Short Ot I95.1 ORTHOSTATIC HYPOTENSION 08/26/2019 GARLAND JORDAN, BUSHRA Short Ot J18.9 PNEUMONIA, UNSPECIFIED ORGANISM 08/26/2019 GARLAND JORDAN, BUSHRA Short Ot J90 PLEURAL EFFUSION, NOT ELSEWHERE CLASSIFI 08/26/2019 GARLAND JORDAN, BUSHRA Short Ot J96.00 ACUTE RESPIRATORY FAILURE, UNSP W HYPOXI 08/26/2019 GARLAND JORDAN, BUSHRA Short Ot N18.3 CHRONIC KIDNEY DISEASE, STAGE 3 (MODERAT 08/26/2019 GARLAND JORDAN, BUSHRA Short Ot N39.0 URINARY TRACT INFECTION, SITE NOT SPECIF 08/26/2019 GARLAND JORDAN, BUSHRA Short Ot R29.6 REPEATED FALLS 11/24/2019 CHARLIE, ROBERTO E [employer]PER[employer] SUPERVISOR Ot I51.7 CARDIOMEGALY 11/24/2019 CHARLIE ROBERTO E [employer]PER[employer] SUPERVISOR Ot J18.8 OTHER PNEUMONIA, UNSPECIFIED ORGANISM 11/24/2019 CHARLIE ROBERTO E [employer] SUPERVISOR Ot J90 PLEURAL EFFUSION, NOT ELSEWHERE CLASSIFI 11/24/2019 CHARLIE ROBERTO E [employer]PER[employer] SUPERVISOR Ot I51.7 CARDIOMEGALY 11/24/2019 CHARLIE, ROBERTO E [employer]PER[employer] SUPERVISOR Ot J18.8 OTHER PNEUMONIA, UNSPECIFIED ORGANISM 11/24/2019 CHARLIE, ROBERTO E [employer]PER[employer] SUPERVISOR Ot J90 PLEURAL EFFUSION, NOT ELSEWHERE CLASSIFI 11/26/2019 CHARLIE ROBERTO E [employer]PER[employer] SUPERVISOR Ot I51.7 CARDIOMEGALY 11/26/2019 CHARLIE, ROBERTO E [employer]PER[employer] SUPERVISOR Ot J18.8 OTHER PNEUMONIA, UNSPECIFIED ORGANISM 11/26/2019 CHARLIE, ROBERTO E [employer]PER[employer] SUPERVISOR Ot J90 PLEURAL EFFUSION, NOT ELSEWHERE CLASSIFI 11/26/2019 ARABELLAKEVAN Gaffney RETURNS PROCESSOR Ot 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 KDNY DIS W HRT FAIL AND ST 11/26/2019 ARABELLA, KEVAN RETURNS PROCESSOR Ot I50.9 HEART FAILURE, UNSPECIFIED 11/26/2019 ARABELLA, KEVAN RETURNS PROCESSOR Ot N18.3 CHRONIC KIDNEY DISEASE, STAGE 3 (MODERAT 11/26/2019 ARABELLA, KEVAN RETURNS PROCESSOR Ot R06.02 SHORTNESS OF BREATH 11/26/2019 ARABELLA, KEVAN RETURNS PROCESSOR Ot R60.0 LOCALIZED EDEMA 11/26/2019 ARABELLA, KEVAN RETURNS PROCESSOR Ot 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 11/26/2019 ARABELLA, KEVAN RETURNS PROCESSOR Ot 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 11/26/2019 ARABELLA, KEVAN RETURNS PROCESSOR Ot Z95.0 PRESENCE OF CARDIAC PACEMAKER 12/05/2019 ARABELLA, KEVAN RETURNS PROCESSOR Ot 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 KDNY DIS W HRT FAIL AND ST 12/05/2019 ARABELLA, KEVAN RETURNS PROCESSOR Ot I50.9 HEART FAILURE, UNSPECIFIED 12/05/2019 ARABELLA, KEVAN RETURNS PROCESSOR Ot N18.3 CHRONIC KIDNEY DISEASE, STAGE 3 (MODERAT 12/05/2019 ARABELLA, KEVAN RETURNS PROCESSOR Ot R06.02 SHORTNESS OF BREATH 12/05/2019 ARABELLA, KEVAN RETURNS PROCESSOR Ot R60.0 LOCALIZED EDEMA 12/05/2019 ARABELLA, KEVAN RETURNS PROCESSOR Ot Z79.01 HALFWAY (CURRENT) USE OF ANTICOAGULANT 12/05/2019 ARABELLA, KEVAN RETURNS PROCESSOR Ot Z79.82 HALFWAY (CURRENT) USE OF ASPIRIN 12/05/2019 ARABELLA, KEVAN RETURNS PROCESSOR Ot Z95.0 PRESENCE OF CARDIAC PACEMAKER Procedures Code Description Performed By Per formed On [id number] ME ASURE OF CARDIAC SAMPL PRESSURE, L H 08/22/2019 [id number] PE RFORMANCE OF CARDIAC PACING, CONTINUOU 08/22/2019 [id number] FL UOROSCOPY OF MULT COR ART USING L OSM 08/22/2019 [id number] FL UOROSCOPY OF LEFT HEART USING LOW OSMO 08/22/2019 [id number] IN SERTION OF PACEMAKER LEAD INTO R VENTR 08/24/2019 [id number] IN SERT PACE, SINGL SHOBHA RT RESPN [...] 7-25 CREATININE 0.94 mg/dL 0.60-0.88 eGFR NON-AFR. SYRIAN 55 mL/min/1.73m2 > OR = 60 eGFR [...] culture - 08/22/19 11:55 Bacterial urine culture [id number] NRG COLONY COUNT >100,000/ML NRG FTX;REPORTABLE SUSCEPTIBILITY REPORTED 08/24 09:25 NRG FREE TEXT ENTRY 2 PRELIM RAPID ID BY [facility] [id number] NRG Dirithromycin susceptibility test by dis [...] 13:03 CULTURE, URINE, ROUTINE SEE NOTE NRG Complete blood count (CBC) with automate d white blood cell (WBC) differential - 11/24/19 13:00 Blood leukocytes automated count (number/volume) 11.5 10*3/uL 4.3-11.0 Blood erythrocytes automated count (number/volume) 4.63 10*6/uL 4.35-5.85 Venous blood hemoglobin measurement (mass/volume) 14.3 g/dL 11.5-16.0 Blood hematocrit (volume fraction) 43 % 35-52 Automated erythrocyte mean corpuscular volume 93 [ foz_us] 80-99 Automated erythrocyte mean corpuscular h emoglobin (mass per erythrocyte) 31 pg 25-34 Automated erythrocyte mean corpuscular h emoglobin concentration measurement (mass/volume) 33 g/dL 32-36 Automated erythrocyte distribution width ratio 15. 1 % 10.0- 14.5 Automated blood platelet count (count/volume) 295 10*3/uL 130-400 Automated blood platelet mean volume measurement 10.0 [foz_us] 7.4-10.4 Automated blood neutrophils/100 leukocytes 66 % 42-75 Automated blood lymphocytes/100 leukocytes 19 % 12-44 Blood monocytes/100 leukocytes 13 % 0-12 Automated blood eosinophils/100 leukocytes 2 % 0-10 Automated blood basophils/100 leukocytes 0 % 0-10 Blood neutrophils automated count (number/volume) 7.6 10*3 1.8-7.8 Blood lymphocytes automated count (number/volume) 2.2 10*3 1.0-4.0 Blood monocytes automated count (number/volume) 1. 5 10*3 0.0-1.0 Automated eosinophil count 0.3 10*3/uL 0 .0-0.3 Automated blood basophil count (count/volume) 0.0 10*3/uL 0.0-0.1 Comprehensive metabolic panel - 11/24/19 13:00 Serum or plasma sodium measurement (moles/volume) 137 mmol/L 135-145 Serum or plasma potassium measurement (moles/volume) 4.8 mmol/L 3.6-5.0 Serum or plasma chloride measurement (moles/volume) 105 mmol/L 98-107 Carbon dioxide 20 mmol/L 21-32 Serum or plasma anion gap determination (moles/volume) 12 mmol/L 5-14 Serum or plasma urea nitrogen measurement (mass/volume ) 21 mg/dL 7-18 Serum or plasma creatinine measurement (mass/volume) 1.13 mg/dL 0.60-1.30 Serum or plasma urea nitrogen/creatinine mass ratio 19 NRG Serum or plasma creatinine measurement w ith calculation of estimated glomerular filtration rate 46 NRG Serum or plasma glucose measurement (mass/volume) 91 mg/dL 70-105 Serum or plasma calcium measurement (mass/volume) 9.1 mg/dL 8.5-10.1 Serum or plasma total bilirubin measurement (mass/volu me) 0.8 mg/dL 0.1-1.0 Serum or plasma alkaline phosphatase martha surement (enzymatic activity/volume) 100 U/L 40-136 Serum or plasma aspartate aminotransfera se measurement (enzymatic activity/volume) 43 U/L 5-34 Serum or plasma alanine aminotransferase measurement (enzymatic activity/volume) 22 U/L 0-55 Serum or plasma protein measurement (mass/volume) 7.7 g/dL 6.4-8.2 Serum or plasma albumin measurement (mass/volume) 4.0 g/dL 3.2-4.5 CALCIUM CORRECTED 9.1 mg/dL 8.5-10.1 Serum or plasma lithium measurement (mol es/volume) - 11/24/19 13:00 BNP PT 392.8 pg/mL <100.0 Serum or plasma troponin i.cardiac measu rement (mass/volume) - 11/24/19 13:00 Serum or plasma troponin i.cardiac measurement (mass/v olume) < ng/mL <0.028 Serum ragweed IgE antibody assay - 11/23 13:10 Serum ragweed IgE antibody assay 369 U/L 125-220 PROCALCITONIN (PCT) - 11/24/19 13:10 PROCALCITONIN (PCT) 0.03 ng/mL <0.10 PT panel in platelet poor plasma by coag ulation assay - 11/24/19 13:10 Prothrombin time (PT) in platelet poor plasma by coagu lation assay 30.7 s 12.2-14.7 INR in platelet poor plasma or blood by coagulation as say 2.8 0.8-1.4 Activated partial thromboplastin time (a PTT) in platelet poor plasma bycoagulation assay - 11/24/19 13:10 Activated partial thromboplastin time (a PTT) in platelet poor plasma bycoagulation assay 58 s 24-35 Serum or plasma C reactive protein measu rement (mass/volume) - 11/24/19 13:10 Serum or plasma C reactive protein measurement (mass/v olume) 0.27 mg/dL 0.00-0.50 CMP - 11/26/19 12:15 GLUCOSE 105 mg/dL 65-99 UREA NITROGEN (BUN) 25 mg/dL 7-25 CREATININE 1.18 mg/dL 0.60-0.88 eGFR NON-AFR. SYRIAN 41 mL/min/1.73m2 > OR = 60 eGFR 48 mL/min/1.73m2 > OR = 60 BUN/CREATININE RATIO 21 (calc) 6-22 SODIUM 137 mmol/L 135-146 POTASSIUM 4.1 mmol/L 3.5-5.3 CHLORIDE 103 mmol/L 98-110 CARBON DIOXIDE 26 mmol/L 20-32 CALCIUM 9.5 mg/dL 8.6-10.4 PROTEIN, TOTAL 7.0 g/dL 6.1-8.1 ALBUMIN 4.2 g/dL 3.6-5.1 GLOBULIN 2.8 g/dL (calc) 1.9-3.7 ALBUMIN/GLOBULIN RATIO 1.5 (calc) 1.0-2. 5 BILIRUBIN, TOTAL 0.7 mg/dL 0.2-1.2 ALKALINE PHOSPHATASE 106 U/L 37-153 AST 31 U/L 10-35 ALT 19 U/L 6-29 BNP - 11/26/19 12:15 B TYPE NATRIURETIC PEPTIDE (BNP) 416 pg/mL <100 Complete blood count (CBC) with automate d white blood cell (WBC) differential - 12/23/19 12:23 Blood leukocytes automated count (number/volume) 11.0 10*3/uL 4.3-11.0 Blood erythrocytes automated count (number/volume) 4.33 10*6/uL 4.35-5.85 Venous blood hemoglobin measurement (mass/volume) 13.5 g/dL 11.5-16.0 Blood hematocrit (volume fraction) 40 % 35-52 Automated erythrocyte mean corpuscular volume 93 [ foz_us] 80-99 Automated erythrocyte mean corpuscular h emoglobin (mass per erythrocyte) 31 pg 25-34 Automated erythrocyte mean corpuscular h emoglobin concentration measurement (mass/volume) 34 g/dL 32-36 Automated erythrocyte distribution width ratio 13. 8 % 10.0- 14.5 Automated blood platelet count (count/volume) 266 10*3/uL 130-400 Automated blood platelet mean volume measurement 10.4 [foz_us] 7.4-10.4 Automated blood neutrophils/100 leukocytes 63 % 42-75 Automated blood lymphocytes/100 leukocytes 22 % 12-44 Blood monocytes/100 leukocytes 12 % 0-12 Automated blood eosinophils/100 leukocytes 3 % 0-10 Automated blood basophils/100 leukocytes 0 % 0-10 Blood neutrophils automated count (number/volume) 7.0 10*3 1.8-7.8 Blood lymphocytes automated count (number/volume) 2.4 10*3 1.0-4.0 Blood monocytes automated count (number/volume) 1. 4 10*3 0.0-1.0 Automated eosinophil count 0.3 10*3/uL 0 .0-0.3 Automated blood basophil count (count/volume) 0.0 10*3/uL 0.0-0.1 Whole blood basic metabolic panel - 12/06 01/24 12:23 Serum or plasma sodium measurement (moles/volume) 137 mmol/L 135-145 Serum or plasma potassium measurement (moles/volume) 3.8 mmol/L 3.6-5.0 Serum or plasma chloride measurement (moles/volume) 104 mmol/L 98-107 Carbon dioxide 22 mmol/L 21-32 Serum or plasma anion gap determination (moles/volume) 11 mmol/L 5-14 Serum or plasma urea nitrogen measurement (mass/volume ) 21 mg/dL 7-18 Serum or plasma creatinine measurement (mass/volume) 1.19 mg/dL 0.60-1.30 Serum or plasma urea nitrogen/creatinine mass ratio 18 NRG Serum or plasma creatinine measurement w ith calculation of estimated glomerular filtration rate 43 NRG Serum or plasma glucose measurement (mass/volume) 106 mg/dL 70-105 Serum or plasma calcium measurement (mass/volume) 9.1 mg/dL 8.5-10.1 Encounters ACCT No. Visit Date/Time Discharge Status Pt. Type Provider Facility Loc./Unit Complaint [id number] 12/01/2019 08:45:00 12/01/2019 23:59: 59 CLS Outpatient [facility] [id number] 11/26/2019 11:20:00 Document Registration [id number] 11/02/2019 12:10:00 Document Registration [id number] 09/18/2019 08:30:00 Document Registration [id number] 04/07/2019 13:45:00 Document Registration [id number] 12/23/2019 11:51:00 13:42:00 DIS Emergency JEAN IRIS EASTON [facility] ER LEG NUMBNESS;KIDNEY ISS UES [id number] 11/24/2019 12:09:00 15:55:00 DIS Outpatient KEVAN BELL [facility] ER LEG SWELLING [id number] 11/20/2019 11:38:00 23:59:59 CLS Outpatient ROBERTO GUERRA APRN [facility] RAD SOB,PNEUMONIA [id number] 08/22/2019 16:33:00 13:00:00 DIS Inpatient BUSHRA HAQUE MD [facility] 4TH SOB
== END 2019-12-23 13:42 | disposition home or self-care (01) ==
LOC: EDUNIT# 11:49 → ER 11:51
DX: R60.0 Localized edema (principal); I12.9 Hypertensive chronic kidney disease with stage 1 through stage 4 chronic kidney disease, or unspecified chronic kidney disease; N18.3 Chronic kidney disease, stage 3 (moderate); Z79.82 Long term (current) use of aspirin
CPT/HCPCS: 36415; 80048; 85025; 99281

== ENCOUNTER → 2019-12-30 | Outpatient (CLI) | payer MEDICARE, MEDICAID | LOC: LABNPT 07:01 | PROVIDERS: ATTEND Nurse Practitioner Family | DX: R06.02 Shortness of breath (principal) ==

== ENCOUNTER 2020-01-05 19:33 | Outpatient (CLI) | payer MEDICARE, MEDICAID | END 2020-01-06 06:00 | disposition home or self-care (01) | LOC: SLEEP 19:33 | PROVIDERS: ATTEND Nurse Practitioner Family | DX: G47.10 Hypersomnia, unspecified (principal); I50.9 Heart failure, unspecified; I48.91 Unspecified atrial fibrillation | CPT/HCPCS: 95810 ==

== ENCOUNTER → 2020-05-11 | Outpatient (CLI) | payer MEDICARE, MEDICAID ==
[~2020-05-11] MED LIST changes: +ASPI-1238 PO; -ASPI-983 PO; +RT-ALBUTEROL SULF 2.5 MG/3 ML PRE-MIX VIAL INH ONE
== END ==
LOC: RT 10:30
PROVIDERS: ATTEND Nurse Practitioner Family
DX: G47.33 Obstructive sleep apnea (adult) (pediatric) (principal); R06.02 Shortness of breath
CPT/HCPCS: 94060; 94729

== ENCOUNTER 2020-07-03 16:48 | Emergency (ER) | payer MEDICARE, MEDICAID ==
[~2020-07-03] VITALS: Ht 155 cm; Wt 77.2 kg
[~2020-07-03 16:48] MED LIST changes: -RT-ALBUTEROL SULF 2.5 MG/3 ML PRE-MIX VIAL INH ONE
[2020-07-03] MEDS ORDERED: fentaNYL INJECTION 100 MCG/2 ML AMP IVP ONE ×3 (17:15→20:00)
--- NOTE | 2020-07-03 17:16 | ED Lower Extremity ---
General Chief Complaint: Trauma-Non Activation Stated Complaint: LEFT HIP/LEG PAIN Nursing Triage Note: L hip pain after tripping on her walker. denies hitting head, loc, neck pain, vision changes, nausea, vomitting. Nursing Sepsis Screen: No Definite Risk Source: patient Exam Limitations: no limitations History of Present Illness Date Seen by Provider: Jul 03, 2020 Time Seen by Provider: 17:13 Initial Comments To ER with reports of left hip pain after she tripped over her walker at home. This happened just prior to arrival. She has been unable to bear weight on the left hip. She is on aspirin and is on Eliquis. She has a history of mild coronary artery disease, CHF with a most recent echocardiogram in August of this year showing ejection fraction of 45 to 50% with moderate to severe mitral regurgitation. Onset: just prior to arrival Severity: moderate, severe Pain/Injury Location: left hip Method of Injury: fell Modifying Factors: Worse With Movement Allergies and Home Medications Allergies Coded Allergies: No Known Drug Allergies (Unverified , 08/22/19) Home Medications Aspirin 81 Mg Tablet.dr, 81 MG PO DAILY Prescribed by: LORA SMITH on 08/26/19 1013 Furosemide 20 Mg Tablet, 20 MG PO DAILY Prescribed by: JENNY CHAUDHRY on 08/26/19 1051 Ipratropium/Albuterol Sulfate 3 Ml Ampul.neb, 3 ML INH RTQID Prescribed by: LORA SMITH on 08/26/19 1013 Loratadine 10 Mg Tablet, 10 MG PO DAILY PRN for ALLERGY SYMPTOMS, (Reported) Metoprolol Tartrate 25 Mg Tablet, 25 MG PO BID Prescribed by: LORA SMITH on 08/26/19 1013 Patient Home Medication List Home Medication List Reviewed: Yes Review of Systems Constitutional: see HPI EENTM: see HPI Respiratory: no symptoms reported Cardiovascular: no symptoms reported Genitourinary: no symptoms reported Musculoskeletal: see HPI, joint pain Skin: no symptoms reported Psychiatric/Neurological: No Symptoms Reported Past Idxlxdl-Kuuuvz-Qhugeh Hx Patient Social History Alcohol Use: Denies Use Recreational Drug Use: No Recent Foreign Travel: No Contact w/Someone Who Travel: No Recent Infectious Disease Expo: No Recent Hopitalizations: No Seasonal Allergies Seasonal Allergies: No Past Medical History Surgeries: Yes Tonsillectomy Respiratory: No Cardiac: Yes Hypertension Neurological: No Genitourinary: Yes (CKD last known Stage III) Gastrointestinal: No Musculoskeletal: Yes (chronic knee pain) Endocrine: No HEENT: No Cancer: No Psychosocial: No Integumentary: No Blood Disorders: No Physical Exam Vital Signs Vital Signs - First Documented 07/03/20 17:02 Temp 37.7 Pulse 77 Resp 18 B/P (MAP) 154/86 (108) Pulse Ox 98 Capillary Refill : Less Than 3 Seconds Height, Weight, BMI Height: '" Weight: lbs. oz. kg; 32.00 BMI Method: General Appearance: WD/WN, no apparent distress HEENT: PERRL/EOMI, normal ENT inspection Neck: non-tender, full range of motion Respiratory: no respiratory distress, no accessory muscle use Hips: left hip pain, left hip soft tissue tenderness, left hip swelling Legs: bilateral leg non-tender, bilateral leg normal inspection, bilateral leg normal range of motion Knees: bilateral knee non-tender, bilateral knee normal inspection, bilateral knee normal range of motion Ankles: bilateral ankle non-tender, bilateral ankle normal inspection, bilateral ankle normal range of motion Feet: bilateral foot non-tender, bilateral foot normal inspection, bilateral foot normal range of motion Neurologic/Psychiatric: alert, normal mood/affect, oriented x 3 Skin: normal color, warm/dry Progress/Results/Core Measures Results/Orders Lab Results Laboratory Tests Test 07/03/20 17:20 Range/Units White Blood Count 12.9 H 4.3-11.0 10^3/uL Red Blood Count 4.35 3.80-5.11 10^6/uL Hemoglobin 13.3 11.5-16.0 g/dL Hematocrit 41 35-52 % Mean Corpuscular Volume 93 80-99 fL Mean Corpuscular Hemoglobin 31 25-34 pg Mean Corpuscular Hemoglobin Concent 33 32-36 g/dL Red Cell Distribution Width 13.8 10.0-14.5 % Platelet Count 281 130-400 10^3/uL Mean Platelet Volume 10.8 9.0-12.2 fL Immature Granulocyte % (Auto) 1 % Neutrophils (%) (Auto) 62 42-75 % Lymphocytes (%) (Auto) 21 12-44 % Monocytes (%) (Auto) 12 0-12 % Eosinophils (%) (Auto) 3 0-10 % Basophils (%) (Auto) 0 0-10 % Neutrophils # (Auto) 8.1 H 1.8-7.8 10^3/uL Lymphocytes # (Auto) 2.7 1.0-4.0 10^3/uL Monocytes # (Auto) 1.6 H 0.0-1.0 10^3/uL Eosinophils # (Auto) 0.4 H 0.0-0.3 10^3/uL Basophils # (Auto) 0.0 0.0-0.1 10^3/uL Immature Granulocyte # (Auto) 0.1 0.0-0.1 10^3/uL Prothrombin Time 35.3 H 12.2-14.7 SEC INR Comment 3.5 H 0.8-1.4 Activated Partial Thromboplast Time 49 H 24-35 SEC Sodium Level 137 135-145 MMOL/L Potassium Level 4.3 3.6-5.0 MMOL/L Chloride Level 103 98-107 MMOL/L Carbon Dioxide Level 22 21-32 MMOL/L Anion Gap 12 5-14 MMOL/L Blood Urea Nitrogen 33 H 7-18 MG/DL Creatinine 1.38 H 0.60-1.30 MG/DL Estimat Glomerular Filtration Rate 36 BUN/Creatinine Ratio 24 Glucose Level 97 70-105 MG/DL Calcium Level 8.8 8.5-10.1 MG/DL Corrected Calcium 9.0 8.5-10.1 MG/DL Total Bilirubin 0.5 0.1-1.0 MG/DL Aspartate Amino Transf (AST/SGOT) 36 H 5-34 U/L Alanine Aminotransferase (ALT/SGPT) 30 0-55 U/L Alkaline Phosphatase 111 40-136 U/L Total Protein 7.5 6.4-8.2 GM/DL Albumin 3.8 3.2-4.5 GM/DL My Orders Orders - SANTA KIMBLE APRN Cbc With Automated Diff (07/03/20 17:08) Comprehensive Metabolic Panel (07/03/20 17:08) Protime With Inr (07/03/20 17:08) Partial Thromboplastin Time (07/03/20 17:08) Laurent Cath (07/03/20 17:08) Fentanyl Injection (Sublimaze Injection (07/03/20 17:15) Pelvis With Left Hip 2-3 Views (07/03/20 17:08) Chest 1 View, Ap/Pa Only (07/03/20 17:28) Fentanyl Injection (Sublimaze Injection (07/03/20 20:00) Ondansetron Injection (Zofran Injectio (07/03/20 20:00) Hydromorphone Injection (Dilaudid Inject (07/03/20 20:45) Hydromorphone Injection (Dilaudid Inject (07/03/20 20:39) Lidocaine 1% Inj 20 Ml (Xylocaine 1% Inj (07/03/20 21:00) Lidocaine 1% Inj 20 Ml (Xylocaine 1% Inj (07/03/20 20:53) Medications Given in ED Current Medications Medications Dose Ordered Sig/Bradly Route Start Time Stop Time Status Last Admin Dose Admin Fentanyl Citrate 50 mcg ONCE ONCE IVP 07/03/20 17:15 07/03/20 17:16 DC 07/03/20 17:22 50 MCG Fentanyl Citrate 50 mcg ONCE ONCE IVP 07/03/20 19:15 07/03/20 19:16 DC 07/03/20 19:09 50 MCG Fentanyl Citrate 75 mcg ONCE ONCE IVP 07/03/20 20:00 07/03/20 20:01 DC 07/03/20 20:04 75 MCG Hydromorphone HCl 0.5 mg ONCE ONCE IV 07/03/20 20:45 07/03/20 20:47 DC 07/03/20 20:44 0.5 MG Ondansetron HCl 8 mg ONCE ONCE IVP 07/03/20 20:00 07/03/20 20:01 DC 07/03/20 20:04 8 MG Vital Signs/I&O 07/03/20 17:02 Temp 37.7 Pulse 77 Resp 18 B/P (MAP) 154/86 (108) Pulse Ox 98 Blood Pressure Mean: 108 Diagnostic Imaging Diagonstic Imaging: Xray Plain Films/CT/US/NM/MRI: chest Comments NAME: CLINT RAMON MED REC#: [id number] PT STATUS: REG ER : 1930 PHYSICIAN: SANTA KIMBLE APRN ADMIT DATE: 07/03/20/ER Draft Date of Exam:07/03/20 PELVIS WITH LEFT HIP 2-3 VIEWS EXAMINATION: Left hip unilateral 2 or 3 views (w/pelvis when done). HISTORY: Fall. COMPARISON: None available. FINDINGS: There is a varus angulated intertrochanteric fracture of the left femur. 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 No right-sided fracture is seen. IMPRESSION: There is angulated left hip intratrochanteric fracture. Dictated on workstation # [email or web address] Dict: 07/03/201739 Trans: 07/03/201746 PJ [id number] Interpreted by: PHILIP CHAUDHRY MD Electronically signed by: NAME: CLINT RAMON [facility] REC#: [id number] PT STATUS: REG ER : 1930 PHYSICIAN: SANTA KIMBLE APRN ADMIT DATE: 07/03/20/ER Draft Date of Exam:07/03/20 CHEST 1 VIEW, AP/PA ONLY EXAMINATION: Chest 1 view. HISTORY: Fall. COMPARISON: 11/24/2019. FINDINGS: Left subclavian pacemaker is present. Heart size is upper limits of normal. No pleural effusion or pneumothorax. No edema or pneumonia. There is a lower thoracic compression fracture, present on prior CT dated 11/20/2019. IMPRESSION: Clear lungs. Dictated on workstation # [email or web address] Dict: 07/03/201742 Trans: 07/03/201747 PJ [id number] Interpreted by: PHILIP CHAUDHRY MD Electronically signed by: Departure Communication (Admissions) 1812-we do not have any orthopedic coverage here on the weekend, spoke with Dr. Jacobo from [facility] who accepted the patient in transfer to the emergency room. Spoke with Dr. Hou from the emergency room. 2110-shes had 175mcg fentanyl +0.5mg dilaudid. Still has quite a bit of pain. Did US guided femoral nerve block going just lateral to the femoral artery using 10ml 1% lidocaine without epinephrine. Done in sterile fashion after cleaning overlying area with chlorhexidine. Impression Primary Impression: Intertrochanteric fracture of left hip Disposition: XF SHT-TRM HOSP Condition: Stable Transfer Transfer Reason: Exceeds level of care Time Spoke to Accepting Phy: 18:15 Departure-Patient Inst. Referrals: TIA WILSON MD (PCP/Family) Primary Care Physician SANTA KIMBLE APRN Jul 03, 2020 17:16
[2020-07-03 17:32] LABS: BASOPHILS % (AUTO) 0 % (0-10); EOSINOPHILS # (AUTO) 0.4 10^3/uL (0.0-0.3); EOSINOPHILS % (AUTO) 3 % (0-10); HEMATOCRIT 41 % (35-52); HEMOGLOBIN 13.3 g/dL (11.5-16.0); LYMPHOCYTES # (AUTO) 2.7 10^3/uL (1.0-4.0); LYMPHOCYTES % (AUTO) 21 % (12-44); MEAN CORPUSCULAR HEMOGLOBIN 31 pg (25-34); MEAN CORPUSCULAR HGB CONC 33 g/dL (32-36); MEAN CORPUSCULAR VOLUME 93 fL (80-99); MEAN PLATELET VOLUME 10.8 fL (9.0-12.2); MONOCYTES # (AUTO) 1.6 10^3/uL (0.0-1.0); MONOCYTES % (AUTO) 12 % (0-12); NEUTROPHILS # (AUTO) 8.1 10^3/uL (1.8-7.8); NEUTROPHILS % (AUTO) 62 % (42-75); PLATELET COUNT 281 10^3/uL (130-400); WHITE BLOOD COUNT 12.9 10^3/uL (4.3-11.0)
[2020-07-03 17:38] LABS: INR 3.5 (0.8-1.4); PROTHROMBIN TIME PATIENT 35.3 SEC (12.2-14.7)
[2020-07-03 17:46] LABS: ALBUMIN 3.8 GM/DL (3.2-4.5); BILIRUBIN,TOTAL 0.5 MG/DL (0.1-1.0); CALCIUM 8.8 MG/DL (8.5-10.1); CREATININE SERUM 1.38 MG/DL (0.60-1.30); POTASSIUM 4.3 MMOL/L (3.6-5.0); TOTAL PROTEIN 7.5 GM/DL (6.4-8.2)
--- NOTE | 2020-07-03 17:47 | Diagnostic Imaging Report ---
EXAMINATION: Left hip unilateral 2 or 3 views (w/pelvis when done). HISTORY: Fall. COMPARISON: None available. FINDINGS: There is a varus angulated intertrochanteric fracture of the left femur. 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 No right-sided fracture is seen. IMPRESSION: There is angulated left hip intratrochanteric fracture. Dictated by: Dictated on workstation # [email or web address]
--- NOTE | 2020-07-03 17:48 | Diagnostic Imaging Report ---
EXAMINATION: Chest 1 view. HISTORY: Fall. COMPARISON: 11/24/2019. FINDINGS: Left subclavian pacemaker is present. Heart size is upper limits of normal. No pleural effusion or pneumothorax. No edema or pneumonia. There is a lower thoracic compression fracture, present on prior CT dated 11/20/2019. IMPRESSION: Clear lungs. Dictated by: Dictated on workstation # [email or web address]
[2020-07-03] MEDS ORDERED: ONDANSETRON 4 MG/2 ML (SDV) Z0FRAN IVP ONE (20:00)
[2020-07-03] MEDS ORDERED: HYDROmorphone 2 MG/ML VIAL (DILAUDID) ONE (20:39)
[2020-07-03] MEDS ORDERED: HYDROmorphone 2 MG/ML VIAL (DILAUDID) IV ONE (20:45)
[2020-07-03] MEDS ORDERED: LIDOCAINE 1% INJ 20 ML 20 ML VIAL ONE (20:53)
[2020-07-03] MEDS ORDERED: LIDOCAINE 1% INJ 20 ML 20 ML VIAL INJ ONE (21:00)
[2020-07-04] MEDS ORDERED: fentaNYL INJECTION 100 MCG/2 ML AMP ONE
[2020-07-04 00:07] VITALS: BP 130/56
[2020-07-04] MEDS ORDERED: fentaNYL INJECTION 100 MCG/2 ML AMP IVP ONE (00:15)
== END 2020-07-04 00:06 | disposition short-term general hospital (02) ==
LOC: EDUNIT# 16:48 → ER 16:50
DX: S72.142A Displaced intertrochanteric fracture of left femur, initial encounter for closed fracture (principal); I10 Essential (primary) hypertension; Z79.82 Long term (current) use of aspirin; W01.0XXA Fall on same level from slipping, tripping and stumbling without subsequent striking against object, initial encounter
CPT/HCPCS: 36415; 51702; 71045; 80053; 85025; 85610; 85730; 96374; 96375; 96376

== ENCOUNTER → 2020-08-12 | Outpatient (CLI) | payer MEDICARE, MEDICAID ==
[~2020-08-12] VITALS: Ht 154 cm; Wt 83.0 kg
[~2020-08-12] MED LIST changes: +BAMLANIVIMAB (NON FORM) 700 MG in NS (IVPB) 250 ML IV ONE; +EPINEPHrine INJECTION 1 MG/ML AMP IM PRN; +diphenhydrAMINE 50 MG/ML INJ (BENADRYL) IV PRN
[2020-08-12 08:35] VITALS: BP 134/67
[2020-08-12 10:36] VITALS: BP 134/47
== END ==
LOC: INFUSION 08:38
PROVIDERS: ATTEND Nurse Practitioner Community Health
DX: U07.1 COVID-19 (principal)

== ENCOUNTER → 2021-01-22 | Outpatient (CLI) | payer MEDICARE, MEDICAID ==
[~2021-01-22] MED LIST changes: -BAMLANIVIMAB (NON FORM) 700 MG in NS (IVPB) 250 ML IV ONE; -EPINEPHrine INJECTION 1 MG/ML AMP IM PRN; -diphenhydrAMINE 50 MG/ML INJ (BENADRYL) IV PRN
[2021-01-22 14:03] LABS: HEMATOCRIT 40 % (35-52); HEMOGLOBIN 13.3 g/dL (11.5-16.0); MEAN CORPUSCULAR HEMOGLOBIN 33 pg (25-34); MEAN CORPUSCULAR HGB CONC 33 g/dL (32-36); MEAN CORPUSCULAR VOLUME 99 fL (80-99); MEAN PLATELET VOLUME 10.9 fL (9.0-12.2); PLATELET COUNT 242 10^3/uL (130-400); WHITE BLOOD COUNT 11.5 10^3/uL (4.3-11.0)
== END ==
LOC: CVS 13:55
PROVIDERS: ATTEND Family Medicine
DX: I48.0 Paroxysmal atrial fibrillation (principal); I25.10 Atherosclerotic heart disease of native coronary artery without angina pectoris
CPT/HCPCS: 85027

== ENCOUNTER 2021-10-17 12:04 | Emergency (ER) | payer MEDICARE, MEDICAID ==
[~2021-10-17] VITALS: Ht 154.9 cm; Wt 90.0 kg
[2021-10-17 12:31] LABS: BASOPHILS % (AUTO) 0 % (0-10); EOSINOPHILS # (AUTO) 0.8 10^3/uL (0.0-0.3); EOSINOPHILS % (AUTO) 5 % (0-10); HEMATOCRIT 35 % (35-52); HEMOGLOBIN 11.6 g/dL (11.5-16.0); LYMPHOCYTES # (AUTO) 2.1 10^3/uL (1.0-4.0); LYMPHOCYTES % (AUTO) 13 % (12-44); MEAN CORPUSCULAR HEMOGLOBIN 32 pg (25-34); MEAN CORPUSCULAR HGB CONC 33 g/dL (32-36); MEAN CORPUSCULAR VOLUME 99 fL (80-99); MEAN PLATELET VOLUME 10.2 fL (9.0-12.2); MONOCYTES # (AUTO) 2.3 10^3/uL (0.0-1.0); MONOCYTES % (AUTO) 14 % (0-12); NEUTROPHILS # (AUTO) 10.8 10^3/uL (1.8-7.8); NEUTROPHILS % (AUTO) 67 % (42-75); PLATELET COUNT 224 10^3/uL (130-400)
--- NOTE | 2021-10-17 12:31 | ED Hip Pain/Injury ---
General Chief Complaint: Hip/Pelvic Problems Stated Complaint: L HIP PAIN Nursing Triage Note: C/O LEFT HIP PAIN. WAS SITTING ON THE TOILET AND FELT HER LEFT HIP "POP" THIS SAME LEFT HIP WAS REPLACED IN 2019. DENIES ISSUES SINCE REPLACEMENT UNTIL TODAY. Source: patient, EMS Exam Limitations: no limitations History of Present Illness Date Seen by Provider: Oct 17, 2021 Time Seen by Provider: 12:10 Initial Comments Patient presents to the ER by EMS from [facility] with chief complaint that just prior to arrival she was sitting on the toilet and felt a popping sensation in her left hip. She says she is not having pain just some numbness feeling. She is never had a displaced or dislocated hip in the past. In 2019 she had this left hip replaced by Dr. Tellez. Primary care by Dr. Lloyd and Dr. Trinh is her pediatric dietician. She is on Xarelto with a history of atrial fibrillation and a pacemaker. She denies shortness of air nausea vomiting fever chills. She has had frequent falls lately and was in the ER 2 days ago for a fall and worked up with imaging of her left hip. Allergies and Home Medications Allergies Coded Allergies: No Known Drug Allergies (Unverified , 08/22/19) Patient Home Medication List Home Medication List Reviewed: Yes Aspirin (Aspirin EC) 81 Mg Tablet.dr, 81 MG PO DAILY Prescribed by: LORA SMITH on 08/26/19 1013 Furosemide (Lasix) 20 Mg Tablet, 20 MG PO DAILY Prescribed by: JENNY CHAUDHRY on 08/26/19 1051 Ipratropium/Albuterol Sulfate (Iprat-Albut 0.5-3(2.5) mg/3 ml) 3 Ml Ampul.neb, 3 ML INH RTQID Prescribed by: LORA SMITH on 08/26/19 1013 Loratadine (Claritin) 10 Mg Tablet, 10 MG PO DAILY PRN for ALLERGY SYMPTOMS, (Reported) Entered as Reported by: CHUCK CAMARENA on 08/24/19 1456 Metoprolol Tartrate (Metoprolol Tartrate) 25 Mg Tablet, 25 MG PO BID Prescribed by: LORA SMITH on 08/26/19 1013 Review of Systems Constitutional: No chills, No diaphoresis EENTM: No ear discharge, No ear pain Respiratory: No cough, No short of breath Cardiovascular: No chest pain, No edema Gastrointestinal: No abdominal pain, No nausea, No vomiting Genitourinary: No discharge, No dysuria Musculoskeletal: No back pain All Other Systems Reviewed Negative Unless Noted: Yes Past Nzejgbq-Upwmco-Usrogv Hx Patient Social History Tobacco Use?: No Use of E-Cig and/or Vaping dev: No Substance use?: No Seasonal Allergies Seasonal Allergies: No Past Medical History Surgery/Hospitalization HX: htn, left hip fx, ckd, t/a, ppm Surgeries: Yes Tonsillectomy Respiratory: No Cardiac: Yes Hypertension Neurological: No Genitourinary: Yes (CKD last known Stage III) Gastrointestinal: No Musculoskeletal: Yes (chronic knee pain) Endocrine: No HEENT: No Cancer: No Psychosocial: No Integumentary: No Blood Disorders: No Physical Exam Vital Signs Vital Signs - First Documented 10/17/21 12:11 Temp 37.0 Pulse 94 Resp 20 B/P (MAP) 120/72 (88) Pulse Ox 96 Capillary Refill : Height, Weight, BMI Height: '" Weight: lbs. oz. kg; 37.00 BMI Method: General Appearance: No Apparent Distress, WD/WN, Other (Sleeping but easily arousable) HEENT: PERRL/EOMI, Pharynx Normal, Moist Mucous Membranes Neck: Normal Inspection, Non Tender Cardiovascular: Regular Rate, Rhythm, No Edema, Normal Peripheral Pulses Respiratory: Lungs Clear, Normal Breath Sounds, No Accessory Muscle Use, No Respiratory Distress Gastrointestinal: Normal Bowel Sounds, Non Tender, Soft Extremity: Normal Capillary Refill, Other (Unable to flex her hip without pain. Tenderness to the lateral greater trochanter of the left hip. No tenderness in the groin on the left side. Right hip unremarkable. Knee and ankle bilaterally are unremarkable and nontender to palpation.) Neurologic/Psychiatric: Alert, Oriented x3, No Motor/Sensory Deficits, Normal Mood/Affect, home health clinical liaison II-XII Norm as Tested Progress/Results/Core Measures Results/Orders Lab Results Laboratory Tests Test 10/17/21 12:20 Range/Units White Blood Count 16.0 H 4.3-11.0 10^3/uL Red Blood Count 3.59 L 3.80-5.11 10^6/uL Hemoglobin 11.6 11.5-16.0 g/dL Hematocrit 35 35-52 % Mean Corpuscular Volume 99 80-99 fL Mean Corpuscular Hemoglobin 32 25-34 pg Mean Corpuscular Hemoglobin Concent 33 32-36 g/dL Red Cell Distribution Width 14.0 10.0-14.5 % Platelet Count 224 130-400 10^3/uL Mean Platelet Volume 10.2 9.0-12.2 fL Immature Granulocyte % (Auto) 1 % Neutrophils (%) (Auto) 67 42-75 % Lymphocytes (%) (Auto) 13 12-44 % Monocytes (%) (Auto) 14 H 0-12 % Eosinophils (%) (Auto) 5 0-10 % Basophils (%) (Auto) 0 0-10 % Neutrophils # (Auto) 10.8 H 1.8-7.8 10^3/uL Lymphocytes # (Auto) 2.1 1.0-4.0 10^3/uL Monocytes # (Auto) 2.3 H 0.0-1.0 10^3/uL Eosinophils # (Auto) 0.8 H 0.0-0.3 10^3/uL Basophils # (Auto) 0.0 0.0-0.1 10^3/uL Immature Granulocyte # (Auto) 0.1 0.0-0.1 10^3/uL Neutrophils % (Manual) 72 % Lymphocytes % (Manual) 12 % Monocytes % (Manual) 10 % Polychromasia SLIGHT Anisocytosis SLIGHT Sodium Level 137 135-145 MMOL/L Potassium Level 4.0 3.6-5.0 MMOL/L Chloride Level 105 98-107 MMOL/L Carbon Dioxide Level 20 L 21-32 MMOL/L Anion Gap 12 5-14 MMOL/L Blood Urea Nitrogen 29 H 7-18 MG/DL Creatinine 1.47 H 0.60-1.30 MG/DL Estimat Glomerular Filtration Rate 34 BUN/Creatinine Ratio 20 Glucose Level 98 70-105 MG/DL Calcium Level 8.7 8.5-10.1 MG/DL My Orders Orders - INOCENTE SHEPPARD Cbc With Automated Diff (10/17/21 12:24) Basic Metabolic Panel (10/17/21 12:24) Hip, Left, 2 Views (10/17/21 12:24) Manual Differential (10/17/21 12:20) Ct Pelvis Wo (10/17/21 13:04) Fentanyl Inj (Sublimaze Injection) (10/17/21 15:00) Vital Signs/I&O 10/17/21 12:11 Temp 37.0 Pulse 94 Resp 20 B/P (MAP) 120/72 (88) Pulse Ox 96 Blood Pressure Mean: 88 Progress Progress Note #1: Time: 12:29 Progress Note Patient's not in any acute distress and does not want anything for pain right now. As long as her leg is not moving. Suspect dislocation fracture or sprain of the left hip. Progress Note #2: Time: 15:16 Progress Note The patient is having a little pain so we will order some fentanyl. Nursing will call to get a ride to [facility] with some hydrocodone prescription. Diagnostic Imaging Diagonstic Imaging: Xray Plain Films/CT/US/NM/MRI: hip (Left) Comments [facility] [place] NAME: [facility] REC#: [id number] PT STATUS: REG ER : 1930 PHYSICIAN: INOCENTE SHEPPARD MD ADMIT DATE: 10/17/21/ER Signed Date of Exam:10/17/21 HIP, LEFT, 2 VIEWS CLINICAL HISTORY: Left hip pain. Fall. COMPARISON: 10/15/2021. TECHNIQUE: 2 views of the left hip. FINDINGS: There is no acute fracture or dislocation of the left hip. Postsurgical changes of open reduction internal fixation of the proximal left femur are visualized. No periprosthetic fracture is seen. No focal osseous lesions are seen. There is generalized osteopenia. IMPRESSION: 1. No acute fracture or dislocation in the left hip. If symptoms persist consider CT of the left hip to further evaluate. Dictated by: Dictated on workstation # [id number] Dict: 10/17/21 1249 Trans: 10/17/21 1251 [facility] [id number] Interpreted by: ALYSON DONAHUE DO Electronically signed by: ALYSON DONAHUE DO 10/17/21 1251 Reviewed: Reviewed by Me Diagonstic Imaging: CT Plain Films/CT/US/NM/MRI: pelvis Comments [facility] [place] NAME: [facility] REC#: [id number] PT STATUS: REG ER : 1930 PHYSICIAN: INOCENTE SHEPPARD MD ADMIT DATE: 10/17/21/ER Draft Date of Exam:10/17/21 CT PELVIS WO PROCEDURE: CT pelvis without contrast. TECHNIQUE: Multiple contiguous axial images were obtained through the pelvis without the use of intravenous contrast. Sagittal and coronal reformations were performed. Auto Exposure Controls were utilized during the CT exam to meet ALARA standards for radiation dose reduction. INDICATION: Left hip pain. COMPARISON: Left hip radiograph from earlier same day. FINDINGS: There is an acute nondisplaced fracture in the central aspect of the left inferior pubic ramus. An additional fracture involves the left superior pubic ramus at its junction with the body and this is hairline in nature, and nondisplaced. Symphysis pubis alignment is normal. Nondisplaced fracture in the left sacral ala is characterized by subtle cortical buckling. No other fracture is present within the pelvis. Diffuse osseous demineralization is noted. Old healed proximal left femur fracture status post proximal femoral nail with two femoral neck screws (compression and lag). There is a small amount of stranding in the extraperitoneal fat along the left pelvic sidewall. No pelvic hematoma. IMPRESSION: 1. Acute nondisplaced fractures of the left superior and inferior pubic rami. 2. There is a nondisplaced fracture in the left sacral ala. 3. No acute fracture in the proximal femurs on either side. Dictated on workstation # [id number] Dict: 10/17/21 1339 Trans: 10/17/21 1405 [id number] Interpreted by: ALEX BURNS MD Electronically signed by: Reviewed: Reviewed by Me Consults : Consulting Physician: RODRIGUEZ WHITAKER MD Consults Notes Discussed the case with Dr. Whitaker, orthopedic surgeon on-call. He agrees that the fractures are nonoperable. He recommends weightbearing as tolerated with a walker. Departure Impression Primary Impression: Fracture of pelvis Qualified Codes: S32.502A - Unspecified fracture of left pubis, initial encounter for closed fracture Disposition: HOME, SELF-CARE Condition: Stable Departure-Patient Inst. Decision time for Depature: 15:15 Referrals: TIA WILSON MD (PCP/Family) Primary Care Physician RODRIGUEZ WHITAKER MD Patient Instructions: Pelvic Fracture (DC) Add. Discharge Instructions: Topical creams such as icy hot or Biofreeze. Heat applied liberally as necessary for pain. Tylenol 650 mg every 6 hours as needed for pain. Hydrocodone 1 tablet every 6 hours as needed for severe breakthrough pain. Weightbearing as tolerated. Use a walker or wheelchair. Follow-up with primary care as needed for management of symptoms. Follow-up with Dr. Whitaker, orthopedic surgery in 4 to 6 weeks for recheck of pelvis fractures. All discharge instructions reviewed with patient and/or family. Voiced understanding. Scripts Hydrocodone/Acetaminophen (Hydrocodone-Acetamin 5-325 mg) 1 Each Tablet 1 TAB PO Q6H PRN for PAIN-MODERATE (5-7), #20 TAB 0 Refills Prov: INOCENTE SHEPPARD 10/17/21 Copy Copies To 1: RODRIGUEZ WHITAKER MD, TITUS J Oct 17, 2021 12:30
[2021-10-17 12:45] LABS: CALCIUM 8.7 MG/DL (8.5-10.1)
[2021-10-17 12:49] LABS: CREATININE SERUM 1.47 MG/DL (0.60-1.30)
--- NOTE | 2021-10-17 12:51 | Diagnostic Imaging Report ---
CLINICAL HISTORY: Left hip pain. Fall. COMPARISON: 10/15/2021. TECHNIQUE: 2 views of the left hip. FINDINGS: There is no acute fracture or dislocation of the left hip. Postsurgical changes of open reduction internal fixation of the proximal left femur are visualized. No periprosthetic fracture is seen. No focal osseous lesions are seen. There is generalized osteopenia. IMPRESSION: 1. No acute fracture or dislocation in the left hip. If symptoms persist consider CT of the left hip to further evaluate. Dictated by: Dictated on workstation # [id number]
[2021-10-17 13:09] LABS: ANISOCYTOSIS SLIGHT; LYMPHOCYTES % (MANUAL) 12 %; MONOCYTES % (MANUAL) 10 %; NEUTROPHILS % (MANUAL) 72 %; POLYCHROMASIA SLIGHT
--- NOTE | 2021-10-17 14:05 | Diagnostic Imaging Report ---
PROCEDURE: CT pelvis without contrast. TECHNIQUE: Multiple contiguous axial images were obtained through the pelvis without the use of intravenous contrast. Sagittal and coronal reformations were performed. Auto Exposure Controls were utilized during the CT exam to meet ALARA standards for radiation dose reduction. INDICATION: Left hip pain. COMPARISON: Left hip radiograph from earlier same day. FINDINGS: There is an acute nondisplaced fracture in the central aspect of the left inferior pubic ramus. An additional fracture involves the left superior pubic ramus at its junction with the body and this is hairline in nature, and nondisplaced. Symphysis pubis alignment is normal. Nondisplaced fracture in the left sacral ala is characterized by subtle cortical buckling. No other fracture is present within the pelvis. Diffuse osseous demineralization is noted. Old healed proximal left femur fracture status post proximal femoral nail with two femoral neck screws (compression and lag). There is a small amount of stranding in the extraperitoneal fat along the left pelvic sidewall. No pelvic hematoma. IMPRESSION: 1. Acute nondisplaced fractures of the left superior and inferior pubic rami. 2. There is a nondisplaced fracture in the left sacral ala. 3. No acute fracture in the proximal femurs on either side. Dictated by: Dictated on workstation # [id number]
[2021-10-17] MEDS ORDERED: fentaNYL INJ 100 MCG/2 ML AMP IVP ONE (15:00)
[2021-10-17] MEDS ORDERED: ACHD5005 PO (15:18)
[2021-10-17 16:05] VITALS: BP 103/84
== END 2021-10-17 16:05 | disposition home or self-care (01) ==
LOC: EDUNIT# 12:04 → ER 12:06
DX: S32.512A Fracture of superior rim of left pubis, initial encounter for closed fracture (principal); I48.91 Unspecified atrial fibrillation; Z79.01 Long term (current) use of anticoagulants; X50.1XXA Overexertion from prolonged static or awkward postures, initial encounter
CPT/HCPCS: 36415; 72192; 73502; 80048; 85007; 85027